=== PATIENT | female | born 1975 | race Caucasian/White ===

== ENCOUNTER → 2017-10-02 10:18 | Outpatient (CLI) | payer OTHER, SELFPAY ==
--- NOTE | 2017-10-02 10:26 | RAD_ITS ---
STUDY: X-RAY - PELVIS REASON FOR EXAM: Female, 41 years old. Acute pain TECHNIQUE: One view of the pelvis was obtained. COMPARISON: None. FINDINGS: There is a non-specific bowel gas pattern. Normal visualized soft tissue structures. Normal bilateral iliac wings, sacroiliac joints and visualized sacrum. Normal visualized bilateral superior and inferior pubic rami. Normal pubic symphysis. Normal ischial tuberosities. Normal visualized right femoral head. Normal right acetabulum. Normal right hip joint. Normal visualized left femoral head. Normal left acetabulum. Normal left hip joint. RAD/Pelvis 1 or 2 Views IMPRESSION: Normal x-ray examination of the pelvis. Electronically Signed: Holger Forrest MD at 10:37 EDT , Service support ,
[2017-10-02 12:00] LABS: Color, Urine Yellow (Yellow); Glucose, Dipstick Normal (Normal); Ketone-Dipstick Negative (Negative); Leukocyte Esterase-Dipstick 25 /ul (Negative); Nitrite-Dipstick Negative (Negative); Occult Blood-Urine Negative /ul (Negative); Protein-Dipstick 15 mg/dl (Negative); Specific Gravity, Urine 1.025 (1.002-1.030); Urine Clarity Clear (Clear); Urine Urobilinogen 1 mg/dl (Normal)
[2017-10-02 12:03] LABS: Urine Bilirubin Dipstick 1 mg/dL (Negative)
[2017-10-02 12:11] LABS: Protein, Urine (Random) 28.6 mg/dL (<11.9); Protein:Creat Ratio 145 mg/g CRE (0-200)
[2017-10-02 12:30] LABS: Absolute Lymphocyte Count 3.42 X10^3/ul (0.83-4.51); Absolute Neutrophil Count 3.1 X10^3/uL (2.0-7.7); Basophil# 0.02 X10^3/uL; Basophil% 0.3 % (0-1); Eosinophil# 0.13 X10^3/uL; Eosinophils% 1.7 % (0-5); Hematocrit 35.7 % (37-47); Hemoglobin 12.4 g/dl (12.0-15.0); Lymphocyte # 3.42 X10^3/ul (4.0); Lymphocyte % 45.9 % (19-41); Mean Corp Hgb Conc 34.7 g/gl (32-36); Mean Corpuscular Hgb 31.2 pg (27.0-32.0); Mean Corpuscular Volume 89.9 fL (81-99); Mean Platelet Vol. 11.8 fl (6.2-12.0); Monocyte# 0.81 X10^3/uL; Monocyte% 10.9 % (0-10); Neutrophil # 3.06 X10^3/uL (2.7-7.7); Neutrophil % 41.1 % (47-70); Platelet Count 263 K/mm3 (150-450); RBC Distribution Width CV 11.6 % (11.6-14.6); RBC Distribution Width SD 36.7 fl (35.1-43.9); Red Blood Count 3.97 M/mm3 (4.2-5.4); White Blood Count 7.5 K/mm3 (4.4-11.0)
[2017-10-02 12:31] LABS: Erythrocyte Sedimentation Rate < 1 mm/hr (0-20)
[2017-10-02 12:33] LABS: POSITIVE COUNT NO; POSITIVE DIFFERENTIAL NO; POSITIVE MORPHOLOGY NO
[2017-10-02 12:34] LABS: ALB/GLOB Ratio 1.3 RATIO (0.9-2.4); AST(SGOT) 20 U/L (15-37); Alanine Aminotransfer ALT/SGPT 18 U/L (13-56); Albumin, Serum 4.4 g/dL (3.2-5.0); Alkaline Phosphatase 82 U/L (45-117); Anion Gap 6 (5-15); BUN 13 mg/dL (7-18); BUN/Creat Ratio 13.3 RATIO (10-20); CRP < 2.90 mg/L (0.0-3.0); Calcium,Total 8.7 mg/dL (8.5-10.1); Chloride 108 mmol/L (98-107); Creatinine, Serum 0.98 mg/dL (0.55-1.02); EST Glomerular Filtration Rate 66 mL/min (>60); Est Glom Filt Rate - Afr Amer 80 mL/min (>60); Globulin 3.4 g/dL (2.2-4.2); Glucose 72 mg/dL (74-106); Potassium 3.7 mmol/L (3.5-5.1); Protein, Total 7.8 g/dL (6.4-8.2); Rheumatoid Factor < 10.0 IU/mL (<15); Sodium Level 141 mmol/L (136-145)
[2017-10-06 12:08] LABS: Complement C3 104 mg/dL (82-167)
[2017-10-06 12:59] LABS: CCP IgG Antibodies 1 units (0-19); HEPATITIS B SURFACE AG Negative (Negative); HLA B27 Negative (.); Hep B Surface Antibodies Reactive (.); Hep C Antibodies 0.1 s/co ratio (0.0-0.9)
== END ==
LOC: MTLAB 10:23
PROVIDERS: Family Provider Family Medicine; PCP Family Medicine; Visit Provider Internal Medicine Rheumatology
DX: M06.4 Inflammatory polyarthropathy (principal); M35.00 Sjogren syndrome, unspecified; M79.7 Fibromyalgia
CPT/HCPCS: 36415; 72170; 80053; 81002; 81374; 82570; 84156; 85025; 85652; 86140; 86160; 86200; 86431; 86706; 86803; 87340

== ENCOUNTER 2017-10-29 10:12 | Emergency (ER) | payer OTHER, SELFPAY ==
[2017-10-29 10:12] VITALS: BP 131/88; PULSE 82; RESP 16; TEMP 36.7; O2SAT 97; BMI 23.9
--- NOTE | 2017-10-29 10:27 | CT_ITS ---
STUDY: CT ABDOMEN AND PELVIS WITH CONTRAST REASON FOR EXAM: Female, 41 years old. LOW ABD PAIN RADIATING INTO BACK, N/V X 3 DAYS, FIBROMYALGIA, AUTOIMMUNE DZ, SURG-HYSTER RADIATION DOSAGE (If Supplied By Facility): CTDIvol = ( 15.02 ) mGy, DLP = ( 706.05 ) mGycm TECHNIQUE: Transaxial images were obtained from the dome of the diaphragm to the symphysis pubis without oral contrast. 100 ml of Isovue 300 contrast was administered. Sagittal and coronal images were reconstructed. Individualized dose optimization techniques were used for this CT. COMPARISON June 13, 2017 FINDINGS: The visualized lung bases are unremarkable. The visualized portions of the heart are within normal limits. Normal liver. Normal gallbladder and extrahepatic biliary system. Normal spleen. Normal pancreas. Normal bilateral adrenal glands. Normal right kidney. Normal left kidney. There is a small hiatal hernia. Normal small intestine. There are multiple colonic diverticula consistent with diverticulosis. The appendix is visualized and appears normal. Normal abdominal aorta. Normal inferior vena cava. Normal retroperitoneum. Normal urinary bladder. There has been a hysterectomy. There is a small umbilical hernia containing fat. There are mild degenerative changes of the visualized spine. CT/Abdomen/Pelvis W IV Cont ONLY IMPRESSION: There is a new small hiatal hernia. Other chronic findings. Electronically Signed: Almita Castanon MD at 12:19 EDT , Service support ,
[2017-10-29 10:44] LABS: Absolute Lymphocyte Count 2.69 X10^3/ul (0.83-4.51); Absolute Neutrophil Count 3.3 X10^3/uL (2.0-7.7); Basophil# 0.02 X10^3/uL; Basophil% 0.3 % (0-1); Eosinophil# 0.17 X10^3/uL; Eosinophils% 2.5 % (0-5); Hematocrit 34.5 % (37-47); Hemoglobin 11.9 g/dl (12.0-15.0); Lymphocyte # 2.69 X10^3/ul (4.0); Lymphocyte % 39.3 % (19-41); Mean Corp Hgb Conc 34.5 g/gl (32-36); Mean Corpuscular Hgb 31.7 pg (27.0-32.0); Mean Platelet Vol. 9.8 fl (6.2-12.0); Monocyte# 0.65 X10^3/uL; Monocyte% 9.5 % (0-10); Neutrophil # 3.29 X10^3/uL (2.7-7.7); Neutrophil % 48.1 % (47-70); POSITIVE COUNT NO; POSITIVE DIFFERENTIAL NO; POSITIVE MORPHOLOGY NO; Platelet Count 275 K/mm3 (150-450); RBC Distribution Width SD 39.4 fl (35.1-43.9); Red Blood Count 3.75 M/mm3 (4.2-5.4); White Blood Count 6.8 K/mm3 (4.4-11.0)
[2017-10-29] MEDS: 0.9% Normal Saline 1,000 ML 1000 ML IV (10:45)
--- NOTE | 2017-10-29 10:45 | ED.DCSUM_ITS ---
- ER Visit Summary Date of Service: 10/29/17 Chief Complaint: Left lower quadrant abdominal pain, dysuria History of Present Illness: The patient is a 41 F with history of Sjogren's syndrome and polyarthritis presents to the emergency department with left lower quadrant abdominal pain to her back and dysuria. 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 She states she has had 2 urine dips which were positive for bilirubin. She states she went to the emergency department at [facility] yesterday. States they checked her urine and states that it did have bilirubin in it. She states that they did not tell her anything else. She is concerned because she still having some abdominal pain. She denies any fevers. She has had some chills. She states she was recently started on naltrexone, and in order to do this, she had to be taken off of her tramadol. She came off the tramadol week ago and had short-lived withdrawal symptoms that are now improved. She states she has never had pain like this before. She has had prior hysterectomy but denies any other abdominal surgery. Physical Examination: Vital signs reviewed General: Well-nourished, well-developed Head: Normocephalic, atraumatic Eyes: Pupils equal and reactive, extraocular muscles intact Neck, supple, no lymphadenopathy Heart: Regular rate and rhythm Respiratory: No distress, clear bilaterally Abdomen: Soft, mildly tender in the left lower quadrant without rebound or guarding, nondistended, no peritoneal signs Back: Nontender Extremities: Nontender, no edema, no cords Skin: Normal color no rash Neuro: Alert and oriented, no focal or lateralizing deficits Test Results: [] Emergency Department Course and Treatment: The patient has minimal tenderness in her left lower quadrant. She did state that she had bilirubin in her urine. I obtained a urine here. There is no blood. There is no bilirubin. Screening labs are obtained including LFTs. These are also normal. The patient underwent CT of abdomen pelvis with IV contrast. There is no definitive intra-abdominal pathology to explain her pain. I am unsure if she perhaps had some blood breakdown which cause the elevated bilirubin if she passed a small stone, or even if there was a trace infection which is now cleared. However, her exam is unremarkable, her testing is normal. She has had almost complete resolution of symptoms with Toradol and Bentyl. This may be also some withdrawal symptoms because she recently came off tramadol that she had been on for years. I do feel that this patient is safe for further outpatient workup. She will continue anti-inflammatories at home. She is discharged. Treatment Plan: [] Disposition: Discharge Impression: 1. Left-sided flank pain This note was generated with [employer] dictation software. It may contain incorrect words, spelling, and punctuation that were not noted in review of the chart prior to signing ED Disposition - Plan for ED Patient: Chief Complaint: Abd Pain Instructions: ED Abdominal Pain Unkn Cause Referrals: Miguel A Young DO [Primary Care Provider] -
[2017-10-29 10:46] LABS: Bacteria 0 SEEN /hpf (None Seen); Mucous, Urine 0 SEEN /hpf (<or=2+); Red Blood Cells-Urine 0 SEEN /hpf (0-5); White Blood Cells 0 SEEN /hpf (0-5)
[2017-10-29 10:47] LABS: Color, Urine Yellow (Yellow); Glucose, Dipstick Normal (Normal); Ketone-Dipstick Negative (Negative); Leukocyte Esterase-Dipstick Negative /ul (Negative); Nitrite-Dipstick Negative (Negative); Occult Blood-Urine Negative /ul (Negative); Protein-Dipstick Negative (Negative); Specific Gravity, Urine 1.005 (1.002-1.030); Urine Bilirubin Dipstick Negative (Negative); Urine Clarity Clear (Clear); Urine Urobilinogen Normal (Normal)
[2017-10-29 11:02] LABS: ALB/GLOB Ratio 1.1 RATIO (0.9-2.4); AST(SGOT) 20 U/L (15-37); Alanine Aminotransfer ALT/SGPT 17 U/L (13-56); Albumin, Serum 3.6 g/dL (3.2-5.0); Alkaline Phosphatase 79 U/L (45-117); Anion Gap 4 (5-15); BUN 10 mg/dL (7-18); BUN/Creat Ratio 13.6 RATIO (10-20); Calcium,Total 8.9 mg/dL (8.5-10.1); Chloride 114 mmol/L (98-107); Creatinine, Serum 0.74 mg/dL (0.55-1.02); EST Glomerular Filtration Rate 91 mL/min (>60); Est Glom Filt Rate - Afr Amer 111 mL/min (>60); Globulin 3.2 g/dL (2.2-4.2); Glucose 77 mg/dL (74-106); Lipase 342 U/L (73-393); Potassium 4.1 mmol/L (3.5-5.1); Protein, Total 6.8 g/dL (6.4-8.2); Sodium Level 146 mmol/L (136-145)
[2017-10-29 11:14] LABS: Squamous Epithelial Cells - UA 0-5 SEEN /hpf (5-10)
[2017-10-29] MEDS: Ondansetron ODT 4 MG Tablet PO (11:58)
[2017-10-29] MEDS: Ketorolac 30 MG/ML Syringe IV (11:59)
[2017-10-29] MEDS: Dicyclomine 10 MG Capsule 20 MG PO (12:18)
[2017-10-29 12:19] VITALS: BP 112/81; PULSE 64; RESP 14; O2SAT 100
== END 2017-10-29 12:48 | disposition home or self-care (01) ==
PROVIDERS: Emergency Provider Emergency Medicine; Family Provider Family Medicine; PCP Family Medicine
DX: R10.32 Left lower quadrant pain (principal); R30.0 Dysuria; R19.7 Diarrhea, unspecified; R11.2 Nausea with vomiting, unspecified; M79.1 Myalgia; M54.9 Dorsalgia, unspecified; M35.00 Sjogren syndrome, unspecified; Z90.710 Acquired absence of both cervix and uterus
CPT/HCPCS: 74177; 80053; 81001; 83690; 85025; 96361; 96374; 99284; J7030; Q9967; A4216

== ENCOUNTER 2017-11-22 17:56 | Emergency (ER) | payer OTHER, SELFPAY ==
[2017-11-22 17:57] VITALS: BP 134/90; PULSE 113; RESP 15; TEMP 36.9; O2SAT 96; BMI 24.3
--- NOTE | 2017-11-22 18:12 | CT_ITS ---
STUDY: CT ABDOMEN AND PELVIS WITHOUT CONTRAST REASON FOR EXAM: Female, 41 years old. Abdominal pain RADIATION DOSAGE (If Supplied By Facility): CTDIvol = ( 6.62 ) mGy, DLP = ( 342.61 ) mGycm TECHNIQUE: Transaxial images were obtained from the dome of the diaphragm to the symphysis pubis without oral contrast, and without intravenous contrast. Sagittal and coronal images were reconstructed. Individualized dose optimization techniques were used for this CT. COMPARISON: 10/29/2017. FINDINGS: Evaluation of the abdominal viscera is limited in the absence of intravenous contrast. The visualized lung bases are clear. The visualized portions of the heart and pericardium are within normal limits. There are no calcified gallstones present. The liver demonstrates an unremarkable unenhanced appearance. The spleen is normal in size. The pancreas demonstrates an unremarkable unenhanced appearance. The adrenal glands are within normal limits. There are no obstructing renal stones. There is no hydronephrosis. Normal visualized stomach. There is no bowel obstruction. There are thickened loops of small bowel in the right lower quadrant, consistent with enteritis. There is a small amount of adjacent free fluid. The appendix is mildly thickened, measuring 7 mm. There is a small amount of adjacent fluid and stranding. However, this is likely secondary to the adjacent small bowel inflammation. The aorta is normal in caliber. There is no abdominal or pelvic free air, fluid collection or lymphadenopathy. There are no destructive osseous lesions. CT/Abdomen/Pelvis without Cont IMPRESSION: Thickened small bowel loops in the right lower quadrant, consistent with enteritis. Small amount of free fluid. Mild thickening of the appendix with adjacent fluid and stranding. This is likely due to the adjacent small bowel inflammation. However, if there is concern for acute appendicitis, a repeat exam with oral and intravenous contrast can be performed. Electronically Signed: Sami Conley, at 19:22 EDT Tel , Service support ,
--- NOTE | 2017-11-22 18:13 | ED.VISSUMM ---
- ER Visit Summary Date of Service: 11/22/17 Chief Complaint: Right lower quadrant abdominal pain History of Present Illness: The patient is a 41 F with right lower quadrant abdominal pain for 3 days. She states that she was examined by the nurse at work today and was told that she has rebound tenderness and sent here to rule out appendicitis. She is nauseated but has not vomited. She had loose watery diarrhea this morning that has resolved. No back pain or hematuria. She has had similar symptoms in the past with no conclusive diagnosis found on her workup. Physical Examination: Vitals are within normal limits. She is not in distress. She does have mild right lower quadrant abdominal tenderness but no rebound or guarding Test Results: She does have a mild leukocytosis of 13,200. Other labs within normal limits. CT scan revealed inflammation in the bowel loops of the right lower quadrant consistent with enteritis however the appendix was also enlarged and there was surrounding stranding and inflammation and appendicitis could not be ruled out according to the radiologist. It is also possible that the surrounding inflammation was secondary to the adjacent bowel loops. Emergency Department Course and Treatment: I discussed the case with Dr. Bronson who requested transfer to a tertiary care center since there is no gastrointestinal coverage here and she believes that she will likely need a colonoscopy to examine her terminal ileum. The patient requested to be transferred to [facility] and she was accepted by Dr. Tariq. Treatment Plan: Was given 1 dose of IV Zosyn and transferred in stable condition Disposition: Transferred to [facility] Impression: Initial encounter right lower quadrant abdominal pain, enteritis versus early appendicitis This note was generated with [employer] dictation software. It may contain incorrect words, spelling, and punctuation that were not noted in review of the chart prior to signing ED Disposition - Plan for ED Patient: Chief Complaint: Abd Pain Referrals: Miguel A Young DO [Primary Care Provider] -
[2017-11-22] MEDS: Ondansetron 4 MG/2 ML Vial IV ×2 (18:23→22:01)
[2017-11-22] MEDS: 0.9% Normal Saline 1,000 ML 1000 ML IV (18:23)
[2017-11-22] MEDS: Ketorolac 30 MG/ML Syringe IV (18:23)
[2017-11-22 18:41] LABS: Absolute Lymphocyte Count 4.42 X10^3/ul (0.83-4.51); Absolute Neutrophil Count 7.1 X10^3/uL (2.0-7.7); Basophil# 0.02 X10^3/uL; Basophil% 0.2 % (0-1); Eosinophil# 0.27 X10^3/uL; Hematocrit 40.5 % (37-47); Hemoglobin 13.7 g/dl (12.0-15.0); Lymphocyte # 4.42 X10^3/ul (4.0); Lymphocyte % 33.3 % (19-41); Mean Corp Hgb Conc 33.8 g/gl (32-36); Mean Corpuscular Hgb 31.2 pg (27.0-32.0); Mean Corpuscular Volume 92.3 fL (81-99); Mean Platelet Vol. 10.4 fl (6.2-12.0); Monocyte# 1.48 X10^3/uL; Monocyte% 11.2 % (0-10); Neutrophil # 7.05 X10^3/uL (2.7-7.7); Neutrophil % 53.1 % (47-70); Platelet Count 307 K/mm3 (150-450); RBC Distribution Width CV 12.7 % (11.6-14.6); Red Blood Count 4.39 M/mm3 (4.2-5.4); White Blood Count 13.3 K/mm3 (4.4-11.0)
[2017-11-22 18:42] LABS: POSITIVE COUNT NO; POSITIVE DIFFERENTIAL NO; POSITIVE MORPHOLOGY NO
[2017-11-22 18:43] LABS: Bacteria 0 SEEN /hpf (None Seen); Mucous, Urine 0 SEEN /hpf (<or=2+); Red Blood Cells-Urine 0 SEEN /hpf (0-5)
[2017-11-22 18:44] LABS: Color, Urine Yellow (Yellow); Glucose, Dipstick Normal (Normal); Ketone-Dipstick Negative (Negative); Leukocyte Esterase-Dipstick 100 /ul (Negative); Nitrite-Dipstick Negative (Negative); Occult Blood-Urine Negative /ul (Negative); Protein-Dipstick Negative (Negative); Urine Bilirubin Dipstick Negative (Negative); Urine Clarity Sl. Cloudy (Clear); Urine Urobilinogen Normal (Normal)
[2017-11-22 18:52] LABS: AST(SGOT) 28 U/L (15-37); Alanine Aminotransfer ALT/SGPT 29 U/L (13-56); Albumin, Serum 4.1 g/dL (3.2-5.0); Alkaline Phosphatase 101 U/L (45-117); Anion Gap 9 (5-15); BUN 14 mg/dL (7-18); BUN/Creat Ratio 16.4 RATIO (10-20); Bilirubin, Direct 0.11 mg/dL (0.00-0.30); Calcium,Total 9.2 mg/dL (8.5-10.1); Chloride 107 mmol/L (98-107); Creatinine, Serum 0.86 mg/dL (0.55-1.02); EST Glomerular Filtration Rate 77 mL/min (>60); Est Glom Filt Rate - Afr Amer 93 mL/min (>60); Estimated Creatinine Clearance 85.96 ml/min; Globulin 3.9 g/dL (2.2-4.2); Glucose 109 mg/dL (74-106); Lipase 147 U/L (73-393); Potassium 3.7 mmol/L (3.5-5.1); Sodium Level 140 mmol/L (136-145)
[2017-11-22 19:17] LABS: Squamous Epithelial Cells - UA 0-5 SEEN /hpf (5-10); White Blood Cells 0-5 SEEN /hpf (0-5)
[2017-11-22 20:34] VITALS: PULSE 106; RESP 14; O2SAT 98
[2017-11-22] MEDS: Morphine 4 MG/ML Syringe IV (20:43)
[2017-11-22] MEDS: Piperacil/Tazobactam 3.375 GM/50 ML ML IV (21:20)
[2017-11-22 22:02] VITALS: BP 142/94; PULSE 99; RESP 14; TEMP 36.9; O2SAT 97
== END 2017-11-22 22:04 | disposition short-term general hospital (02) ==
PROVIDERS: Emergency Provider Emergency Medicine; Family Provider Family Medicine; PCP Family Medicine
DX: R10.31 Right lower quadrant pain (principal); R11.0 Nausea; R19.7 Diarrhea, unspecified; Q87.1 Congenital malformation syndromes predominantly associated with short stature; Z90.710 Acquired absence of both cervix and uterus
CPT/HCPCS: 74176; 80048; 80076; 81001; 83690; 85025; 99284; J7030; A4216; J2405

== ENCOUNTER 2018-04-18 14:30 | Inpatient (IN) | payer MEDICAID, SELFPAY ==
--- NOTE | 2018-04-18 13:45 | PCM.HP.STD ---
Problem List (1) Opiate abuse, continuous Status: Acute (2) Benzodiazepine abuse, continuous Status: Acute (3) Tobacco use Status: Chronic (4) Anxiety and depression Status: Chronic History of Present Illness Date of Admission: 04/18/18 Chief Complaint: Acute BZD/opiate withdrawal The patient is a 42 y/o F w/ PMHx: Anxiety and Depression, Tobacco use, Opiate and BZD abuse ongoing who presents to the [facility] at [facility] on 04/18/18 w/ noted opiate and BZD withdrawal onset starting 04/17/18-04/18/18 following last dose BZD evening 04/15/18 and last dose percocet 04/17/18 evening with normal consumption history 4 mg daily klonopin and percocet 30 mg daily with abdominal pain/cramping, generalized body aches and pains, rhinorrhea, piloerection, fatigue, restless leg, sweating, yawning as well as agitation and tremors. Patient interested in attaining clean status. She notes that she has been taking her boyfriends percocets with his consent. He had an accident ~2 months prior and has some extent of paralysis and she has been caring for him. He is not able to get his own medications and she notes she gives them to him and takes them as well. She was rx klonopin for anxiety ~ 2 years prior and starting abusing her regimen this year. 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 She is currently on suspension secondary to at least 2 reported incidents of concern she has taken a patient or family members narcotics and BZD. She notes she is on suspension until she has a drug test. She states that she did not take these patients/family members medications. She openly admits that she ran out of percocet and klonopin after these most recent doses. 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 Lives: - - She notes recently she had her boyfriend move out. She had been taking care of him after a recent accident which left him paralyzed. Smoking Status: Current every day smoker - 1 ppd. Tobacco Use: Cigarettes Alcohol: None Drugs: - - Percocets and BZD abuse w/ consumption history 4 mg daily klonopin and percocet 30 mg daily - *Family History Maternal History Items: Diabetes Paternal History Items: Diabetes Review of Systems Constitutional: Reports: Anorexia, Malaise, Weakness, Fatigue. Denies: Chills, Fever, Weight Change HEENT: Reports: Sore Throat. Denies: Head Aches, Sinus Congestion, Sinus Drainage Cardiovascular: Denies: Chest Pain, Palpitations Respiratory: Denies: Cough, Shortness of breath at rest, Sputum production Gastrointestinal: Reports: Abdominal Pain, Diarrhea, Nausea, Vomiting Genitourinary: Denies: Dysuria Musculoskeletal: Reports: Joint Pain, Muscle pain. Denies: Joint Tenderness Skin: Denies: Rash, Wounds Neurological: Reports: Tremor. Denies: Focal weakness, Numbness, Tingling Psychiatric: Reports: Anxiety, Depression. Denies: Homicidal Ideations, Suicidal Ideations Hematologic/ Lymphatic: Denies: Easy Bruising, Easy Bleeding VTE Information - Inpt Only VTE Present on Admission: No VTE Mechan Device Prophylaxis: SCD's VTE Pharm Prophylaxis ordered?: No Reason prophylaxis not ordered:: Treatment Not Indicated Subjective: Seated upright in the chair, notes feeling poorly, yawning, sweating, restless, anxious. Objective: Physical Examination: General: awake, alert, oriented x 3 and cooperative, seated upright, restless, anxious, yawning, sweating. Skin: normal color, turgor, no icterus, cyanosis. HEENT: AT/NC, EOMI, PERRLA, moderately dry MM, no carotid bruits or JVD noted. Lungs: CTA bilaterally, moderate effort, mild decrease BL bases, no rales, ronchi or wheezing. Heart: Regular rate and rhythm; no gallop, rub audible. Abdomen: soft, mild generalized discomfort, ND, hyperactive BS, no HSM. Extremities: no cyanosis, clubbing, or edema. Neurological: patient awake, alert, oriented x 3; cognitive function intact; pupils equally reactive to light and accomodation; cranial nerves II-XII grossly normal, moving all 4 extremities, no focal deficits, strength mildly to moderately globally secondary to acute presentation, agitated, no visible tremors. Psychiatric: affect appears mildly agitated, anxious, no acute evidence of depressive feelings. Assessment/Plan All Active Problems Opiate abuse, continuous (Acute) Benzodiazepine abuse, continuous (Acute) The patient is a 42 y/o F w/ PMHx: Anxiety and Depression, Tobacco use, Opiate and BZD abuse ongoing who presents to the [facility] at [facility] on 04/18/18 w/ noted acute opiate and BZD withdrawal onset starting 04/17/18-04/18/18 following last dose BZD evening 04/15/18 and last dose percocet 04/17/18 evening with normal consumption history 4 mg daily klonopin and percocet 30 mg daily. (1) Acute Opiate and BZD Withdrawal: Will admit to [facility], obtain routine labs including CBC, CMP, urine for drug screen, serum lipase, initiate and continue on [facility] service protocol with tapering course of Subutex and Librium with cautious to sedation, as needed Seroquel, Librium, Sinemet, Catapres, Bentyl, Vistaril, IV fluids, IV antiemetics, Tylenol as needed for pain. Once patient clinically improved and completion of taper nearing will plan [facility] assistance for transition to next level of rehabilitation care. Discussed patient status per her permission with her PCP Dr. Miguel A Young and he is willing to continue to treat her for BZD withdrawal with BZD taper regimen. Intention for hospitalist to contact him on day of patient discharge to arrange pharmacy rx for taper initiation to continue. (2) Anxiety and Depression: Will continue patient home cymbalta 60 mg daily regimen, does have notable room for increase as needed. (3) Tobacco Abuse: Encouraged cessation, inpatient consultation per RT, NR if desired. (4) GERD: Famotidine. (5) DVT Prophylaxis: SOLO, low risk, ambulation. Code Visit Inpatient E&M: 73078 Init Hosp L3
[2018-04-18 14:00] VITALS: BP 157/80; PULSE 78; RESP 18; TEMP 36.5
[2018-04-18 14:35] VITALS: BMI 22.0
[2018-04-18 14:40] LABS: Basophil% 0.2 % (0-1); Eosinophils% 0.4 % (0-5); Hematocrit 40.5 % (37-47); Hemoglobin 13.7 g/dl (12.0-15.0); Lymphocyte % 27.8 % (19-41); Mean Corp Hgb Conc 33.8 g/gl (32-36); Mean Corpuscular Hgb 30.9 pg (27.0-32.0); Mean Corpuscular Volume 91.4 fL (81-99); Mean Platelet Vol. 10.7 fl (6.2-12.0); Monocyte% 8.1 % (0-10); Neutrophil % 63.2 % (47-70); Platelet Count 309 K/mm3 (150-450); RBC Distribution Width CV 12.2 % (11.6-14.6); RBC Distribution Width SD 40.8 fl (35.1-43.9); Red Blood Count 4.43 M/mm3 (4.2-5.4); White Blood Count 11.4 K/mm3 (4.4-11.0)
[2018-04-18 14:41] LABS: Absolute Lymphocyte Count 3.18 X10^3/ul (0.83-4.51); Absolute Neutrophil Count 7.2 X10^3/uL (2.0-7.7); Basophil# 0.02 X10^3/uL; Eosinophil# 0.05 X10^3/uL; Lymphocyte # 3.18 X10^3/ul (4.0); Monocyte# 0.93 X10^3/uL; Neutrophil # 7.22 X10^3/uL (2.7-7.7); POSITIVE COUNT NO; POSITIVE DIFFERENTIAL NO; POSITIVE MORPHOLOGY NO
[2018-04-18 14:50] LABS: AST(SGOT) 23 U/L (15-37); Alanine Aminotransfer ALT/SGPT 29 U/L (13-56); Albumin, Serum 4.3 g/dL (3.2-5.0); Alkaline Phosphatase 120 U/L (45-117); Anion Gap 9 (5-15); BUN 10 mg/dL (7-18); BUN/Creat Ratio 15.3 RATIO (10-20); Calcium,Total 9.6 mg/dL (8.5-10.1); Chloride 108 mmol/L (98-107); Creatinine, Serum 0.66 mg/dL (0.55-1.02); EST Glomerular Filtration Rate 105 mL/min (>60); Est Glom Filt Rate - Afr Amer 127 mL/min (>60); Globulin 4.1 g/dL (2.2-4.2); Glucose 92 mg/dL (74-106); Lipase 135 U/L (73-393); Potassium 3.4 mmol/L (3.5-5.1); Protein, Total 8.4 g/dL (6.4-8.2); Sodium Level 142 mmol/L (136-145)
[2018-04-18 15:01] LABS: Alcohol, Blood (Medical)-Serum < 3.0 mg/dL
[2018-04-18 15:04] VITALS: BMI 23.6
[2018-04-18] MEDS: Ondansetron ODT 4 MG Tablet PO ×2 (15:23→23:03)
[2018-04-18] MEDS: Buprenorphine HCl 2 MG TAB.SUBL SL ×2 (15:23→21:39)
[2018-04-18] MEDS: hydrOXYzine PAM 25 MG Capsule 50 MG PO (15:23)
[2018-04-18 16:27] LABS: Amphetamine Urine VISTA NEGATIVE (<1000 ng/mL); Barbiturate Urine VISTA POSITIVE (< 200 ng/mL); Benzodiazepine Urine VISTA NEGATIVE (< 200 ng/mL); Cocaine Urine VISTA NEGATIVE (< 300 ng/mL); Ecstacy Urine VISTA NEGATIVE (< 500 ng/mL); Methadone Urine VISTA NEGATIVE (< 300 ng/mL); PCP Urine VISTA NEGATIVE (< 25 ng/mL); THC Urine VISTA NEGATIVE (< 50 ng/mL); Vista UDS pH Range 5
[2018-04-18] MEDS: Lactated Ringers 1,000 ML 125 ML IV (17:01)
[2018-04-18] MEDS: Ibuprofen 600 MG Tablet PO (17:02)
[2018-04-18] MEDS: chlordiazePOXIDE 25 MG Capsule 50 MG PO ×2 (17:02→21:39)
[2018-04-18 18:30] VITALS: BP 136/90; PULSE 89; RESP 18; TEMP 36.9
[2018-04-18] MEDS: Erythromycin Base 1 OPTH.TUBE 1 APPLIC EACH EYE ×2 (18:32→21:41)
[2018-04-18] MEDS: Pramipexole Di-HCl 0.25 MG Tablet PO (18:35)
--- NOTE | 2018-04-18 18:53 | NURSING ---
reviewed and agree with charting by Zuly Guidry, student nurse
[2018-04-18] MEDS: cloNIDine HCl 0.1 MG Tablet PO (20:00)
[2018-04-18] MEDS: Famotidine 20 MG Tablet PO (21:40)
[2018-04-18] MEDS: traZODone 50 MG Tablet PO (21:40)
[2018-04-18 22:00] VITALS: RESP 16
[2018-04-19] VITALS (8 sets, daily range): BP systolic 97–119; BP diastolic 58–75; PULSE 71–103; RESP 16; TEMP 36.6–37.4; O2SAT 93–98
[2018-04-19] MEDS: Ibuprofen 600 MG Tablet PO ×3 (01:19→21:13)
[2018-04-19] MEDS: hydrOXYzine PAM 25 MG Capsule 50 MG PO ×3 (01:25→15:54)
[2018-04-19] MEDS: chlordiazePOXIDE 25 MG Capsule 50 MG PO ×3 (05:07→17:50)
[2018-04-19] MEDS: Buprenorphine HCl 2 MG TAB.SUBL SL ×3 (05:07→21:58)
[2018-04-19] MEDS: Famotidine 20 MG Tablet PO ×2 (08:55→21:10)
[2018-04-19] MEDS: Erythromycin Base 1 OPTH.TUBE 1 APPLIC EACH EYE ×4 (08:56→21:10)
[2018-04-19] MEDS: Ondansetron ODT 4 MG Tablet PO ×2 (09:02→15:44)
[2018-04-19] MEDS: Methocarbamol 750 MG Tablet PO ×2 (09:02→15:54)
[2018-04-19] MEDS: Dicyclomine 10 MG Capsule 20 MG PO (09:03)
--- NOTE | 2018-04-19 09:12 | PN_ITS ---
Subjective: Patient was seen and examined. Complains of some restless legs. Slept well. Concerned about her significant other also admitted in the hospital. She does not want her significant other to know that she is admitted and also the room number. Per patient, she believes that her problem with addiction to pain medications and other substances are related to this present. Patient is on chronic pain medications but has been giving her his medications to keep her in the relationship with him. She is eager to follow-up with an outpatient program. Vitals/I&O's: Vital Signs Temp Pulse Resp BP Pulse Ox 98.3 F 71 16 97/58 L 96 04/19/18 02:00 04/19/18 02:00 04/19/18 04:59 04/19/18 02:00 04/19/18 01:26 Oxygen Delivery Method Room Air Weight: 70.534 kg Body Mass Index (BMI) 23.6 Intake and Output for Last 24 Hours 04/17/18 04/18/18 04/19/18 23:59 23:59 23:59 Intake Total 536 / 536 1651 / 1651 Balance 536 / 536 1651 / 1651 General: Alert, Oriented x3, Cooperative, No apparent distress HEENT: Atraumatic, PERRLA, EOMI, Normocephalic Oral: Moist Mucosa Neck: Supple, No JVD, Negative Carotid Bruits Lungs: Clear to auscultation, Normal air movement Cardiovascular: Regular rate, Regular Rhythm, Normal S1, Normal S2, No murmurs Abdomen: Bowel Sounds Present, Soft, Non Tender, Non-Distended, No Hepato- splenomegaly Extremities: No edema, Capillary Refill Less than 3 Seconds Skin: No rashes, No breakdown Musculoskeletal: No Tenderness to Palpation of Joints or Extremities Neurological: Cranial nerves II-XII grossly intact, Neuro grossly intact Psych/Mental Status: Normal Affect, Appropriate Laboratory Results 04/18/18 14:15: WBC 11.4 H, RBC 4.43, Hgb 13.7, Hct 40.5, MCV 91.4, MCH 30.9, MCHC 33.8, RDW 12.2, RDW Differential 40.8, Plt Count 309, MPV 10.7, Immature Gran % (Auto) 0.300, Neut % (Auto) 63.2, Lymph % (Auto) 27.8, [place] % (Auto) 8.1, Eos % (Auto) 0.4, Baso % (Auto) 0.2, Absolute Neuts (auto) 7.2, Absolute Lymphs (auto) 3.18, Total Counted Not Reportable 04/18/18 14:15: Sodium 142, Potassium 3.4 L, Chloride 108 H, Carbon Dioxide 25.0, Anion Gap 9, BUN 10, Creatinine 0.66, Est GFR (MDRD) Af Amer 127, Est GFR (MDRD) Non-Af 105, BUN/Creatinine Ratio 15.3, Glucose 92, Calcium 9.6, Total Bilirubin 0.40, AST 23, ALT 29, Alkaline Phosphatase 120 H, Total Protein 8.4 H, Albumin 4.3, Globulin 4.1, Albumin/Globulin Ratio 1.0, Lipase 135 04/18/18 14:15: Ethyl Alcohol < 3.0 04/18/18 15:15: Urine Opiates Screen NEGATIVE, Urine Methadone Screen NEGATIVE, Ur Barbiturates Screen POSITIVE H, Ur Phencyclidine Scrn NEGATIVE, Ur Amphetamines Screen NEGATIVE, U Methamphetamin-MDMA NEGATIVE, U Benzodiazepines Scrn NEGATIVE, Urine Cocaine Screen NEGATIVE, U Cannabinoids Screen NEGATIVE, Ur Drug Screen Comment Current Medications Acetaminophen (Tylenol) 500 mg PO Q4H PRN PRN PRN Reason: Temp > 100.4 F Al Hydroxide/Mg Hydroxide (Mylanta Ii) 30 ml PO Q6H PRN PRN PRN Reason: dyspesia Bisacodyl (Dulcolax) 10 mg RECTAL DAILY PRN PRN Reason: Constipation Buprenorphine HCl (Buprenorphine Hcl) 4 mg SL Q8H ANGEL; Taper Stop: 04/21/18 17:59 Last Admin: 04/19/18 05:07 Dose: 4 mg Chlordiazepoxide (Librium) 50 mg PO Q6H ANGLE; Taper Stop: 04/21/18 17:59 Last Admin: 04/19/18 09:02 Dose: 50 mg Clonidine (Catapres) 0.1 mg PO Q2H PRN PRN PRN Reason: Hot/Cold Sweats or Anxiety Last Admin: 04/18/18 20:00 Dose: 0.1 mg Dicyclomine HCl (Bentyl) 20 mg PO Q6H PRN PRN PRN Reason: Abdomnial Discomfort Last Admin: 04/19/18 09:03 Dose: 20 mg Erythromycin () 1 applic EACH EYE 4X/DAY [facility] Last Admin: 04/19/18 08:56 Dose: 1 applicatio Famotidine (Pepcid) 20 mg PO BID [facility] Last Admin: 04/19/18 08:55 Dose: 20 mg Hydroxyzine HCl (Vistaril Vial) 50 mg IM Q6H PRN PRN PRN Reason: Breakthrough Anxiety Hydroxyzine Pamoate (Vistaril Pamoate Capsule) 50 mg PO Q6H PRN PRN PRN Reason: Mild Anxiety Last Admin: 04/19/18 09:02 Dose: 50 mg Ibuprofen (Motrin) 600 mg PO Q6H PRN PRN PRN Reason: Mild-Moderate Pain (1-11/16) Last Admin: 04/19/18 08:55 Dose: 600 mg Loperamide HCl (Imodium) 2 - 4 mg PO UD PRN PRN Reason: LOOSE STOOLS Magnesium Hydroxide (Milk Of Magnesia) 30 ml PO DAILY PRN PRN PRN Reason: Constipation Methocarbamol (Methocarbamol) 750 mg PO Q6H PRN PRN PRN Reason: Muscle Aches Last Admin: 04/19/18 09:02 Dose: 750 mg Nicotine (Nicoderm Cq (Pbkc)) 21 mg TRANSDERM. DAILY [facility] Last Admin: 04/19/18 09:05 Dose: Not Given Nutritional Formula (Lactose Free) (Ensure Enlive) 120 ml PO 4X/DAY [facility] Last Admin: 04/19/18 09:03 Dose: 120 ml Ondansetron HCl (Zofran Odt) 4 mg PO Q6H PRN PRN PRN Reason: NAUSEA Last Admin: 04/19/18 09:02 Dose: 4 mg Pramipexole Dihydrochloride (Mirapex) 0.25 mg PO Q12H PRN PRN PRN Reason: Restless Legs Last Admin: 04/18/18 18:35 Dose: 0.25 mg Senna (Senokot) 1 tablet PO QHS PRN PRN PRN Reason: Constipation Sodium Chloride () 5 - 30 ml IV UD PRN PRN Reason: SALINE FLUSH Trazodone HCl (Desyrel) 50 mg PO QHS [facility] Last Admin: 04/18/18 21:40 Dose: 50 mg Medical Necessity - Tobacco Use Smoking Status: Current every day smoker Tobacco Use: Cigarettes Assessment/Plan All Active Problems Opiate abuse, continuous (Acute) Benzodiazepine abuse, continuous (Acute) 42-year-old female with past medical history of anxiety/depression, nicotine dependency, history of substance abuse who was admitted with acute opioid withdrawal symptoms. 1. Acute opioid withdrawal, patient's urine tox was negative for opioids and benzos, showed barbiturates Doubt that patient was truly in opiate withdrawal Will continue to be monitored under the [facility] protocol 2. Anxiety/depression, on Cymbalta 3. Nicotine use disorder, on replacement patch 4. GERD, on famotidine 5. DVT PPx- early ambulation. Code Visit Inpatient E&M: 57566 Subs Hosp L2
[2018-04-19 10:21] LABS: Anion Gap 5 (5-15); BUN 14 mg/dL (7-18); BUN/Creat Ratio 17.7 RATIO (10-20); Calcium,Total 8.7 mg/dL (8.5-10.1); Chloride 108 mmol/L (98-107); Creatinine, Serum 0.79 mg/dL (0.55-1.02); EST Glomerular Filtration Rate 84 mL/min (>60); Est Glom Filt Rate - Afr Amer 102 mL/min (>60); Estimated Creatinine Clearance 92.63 ml/min; Glucose 88 mg/dL (74-106); Sodium Level 144 mmol/L (136-145)
--- NOTE | 2018-04-19 10:40 | NURSING ---
REPORT CALLED TO SHANAE CARDENAS ON MS3 PRIOR TO PATIENT TRANSFER.
--- NOTE | 2018-04-19 12:28 | CASEMGMT ---
SW spoke w/pt, she requested to speak w/SW in regard to her boyfriend, who is also here in the hospital as per pt. Pt states she does not feel she can care for her boyfriend any longer at home, she states she is struggling to care for herself. SW explained got permission from boyfriend to speak w/her, and that SW is working w/her boyfriend on a discharge plan. She has told her boyfriend in the past she cannot care for him, but he does not believe her. Pt explains she will speak w/boyfriend when she is out of the hospital that she does not feel she can care for him any longer, feels this needs to come from her however. SW offered support to pt. She states is not going to abandon boyfriend, but just cannot care for him at this time. She states her son will not speak to her, and she is not going to lose her own family over this. Support offered. [facility] working w/pt on after care plan. SW remains available for support to pt as needed. GAVIOTA Man, REAL ESTATE PHOTOGRAPHER
--- NOTE | 2018-04-19 14:19 | CHAPLAIN ---
Type of Pastoral Visit _x__ Initial Visit ___ Follow-up Visit ___ On-call Visit ___ General Patient Visit ___ Spiritual Assessment ___ Family Conference ___ Bereavement ___ Rapid Response ___ Code Blue ___ Other (describe below) Pastoral Care Referral From _x__ Patient ___ Family ___ Nurse ___ Physician ___ Mri Supervisor ___ Seismograph Supervisor ___ Other (describe below) Sacrament/Intervention _x__ Active listening ___ Anointing ___ Sabianism ___ Bereavement ___ Communion _x__ Cintia exploration ___ _x__ Life review _x__ Prayer ___ Reconciliation ___ Sacrament of Sick _x__ Supportive presence ___ Wedding ___ Other (describe below) Pastoral Comments patient looking for stabilization and a better life for her son and his family as well as the boyfriend that she has been taking care of in her home; pt describes one very good friend who gives support but is not so certain about other family and co workers support; pt has lost three jobs and hopes to get life turned around; pt agreed to out patient counseling in the future; pt welcomes prayer support; pt is talkative
[2018-04-19] MEDS: cloNIDine HCl 0.1 MG Tablet PO (15:00)
[2018-04-19] MEDS: Pramipexole Di-HCl 0.25 MG Tablet PO (15:53)
[2018-04-19] MEDS: hydrOXYzine 50 MG/ML Vial IM (21:05)
[2018-04-19] MEDS: DULoxetine Hcl 30 MG Capsule PO (21:10)
[2018-04-19] MEDS: traZODone 50 MG Tablet PO (21:10)
[2018-04-20 02:00] VITALS: BP 101/57; PULSE 103; RESP 18; TEMP 38.3
[2018-04-20] MEDS: chlordiazePOXIDE 25 MG Capsule 50 MG PO ×2 (02:13→10:31)
[2018-04-20] MEDS: Ondansetron ODT 4 MG Tablet PO (02:33)
[2018-04-20] MEDS: Acetaminophen/Butalbital/Caffe 1 Tablet PO (02:47)
[2018-04-20] MEDS: Buprenorphine HCl 2 MG TAB.SUBL SL (06:56)
[2018-04-20 07:00] VITALS: BP 107/63; PULSE 75; RESP 16; TEMP 37.2
--- NOTE | 2018-04-20 08:54 | DCINST_ITS ---
- Discharge Diagnoses Reason(s) for Visit for Discharge Instructions: Nausea, muscle aches You will use the following diet at home:: Regular Your food should be the consistency of: Regular Your liquids should be the consistency of: Regular/Thin Discharge Activity: Return to Normal Activity Additional Instructions: Follow-up with the outpatient drug rehab programs. Allergies/Adverse Reactions: Allergies diphenhydramine [From Benadryl] Adverse Reaction (Verified 04/18/18 14:03) Other anxiety Medications to take at Discharge Duloxetine Hcl [Cymbalta] 30 mg PO BID 04/18/18 Nicotine [Nicoderm Cq] 21 mg TRANSDERM. DAILY #30 patch 04/20/18 The following prescriptions were given: Nicotine [Nicoderm Cq] 21 mg TRANSDERM. DAILY #30 patch Primary Care Physician: Miguel A Young DO [Primary Care Provider] - Test Results: Test results from this visit will be discussed in further detail at your follow- up appointment, if applicable. Proposed Discharge Date: 04/20/18
--- NOTE | 2018-04-20 08:54 | PCM.DC.SUM ---
Discharge Date and Diagnosis Date of Admission: 04/18/18 Date of Discharge: 04/20/18 - Primary Discharge Diagnosis Acute barbiturates withdrawal - Secondary Discharge Diagnosis Chronic Problems Tobacco use (Chronic) Anxiety and depression (Chronic) GERD Hospital Course and Treatment None Operations: None Procedures: None Summary of Care Provided: The patient is a 42 year old F with past medical history of anxiety/depression: Polysubstance use, nicotine dependence, reported opiate and benzodiazepine use disorder who presented on 04/18/18 with acute opiate and benzodiazepine withdrawals with abdominal pain, cramping, generalized body aches and pains as well as rhinorrhea. Patient had expressed interest in obtaining a clean status. She had been taking her boyfriend's Percocet with his consent. 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 She is reportedly on suspension for more than 2 reported incidents of concern when she is taking a patient or family members narcotic and benzodiazepine. She reports that she ran out of Percocet and Klonopin after these recent instances. She is on suspension until she takes a drug test. Patient was admitted for withdrawal symptoms but urine drug screen was positive only for barbiturates with no benzodiazepine or opiates. There was a concern for malingering and misuse of prescribed Klonopin with at least possibility of selling. Discussed with the patient's primary care doctor, Dr. Miguel A Young who has been filling patient's benzodiazepines. Patient was recently given 270 pills of benzodiazepine because she had told the primary care doctor that she needs to get her medications through the mail order. Discussed with [facility] staff, that we do not think the patient is actively withdrawing as urine tox was negative for benzodiazepines or opiate. She was subsequently discharged. Outpatient referrals were given to her for outpatient drug rehab programs to follow-up with as well as 180. Subjective: Patient was seen and examined day of discharge. She denies any new complaints except for some irritation of the eyes. Denies any diarrhea or nausea or vomiting. No acute events overnight. Objective: General: Alert, Oriented x3, Cooperative, No apparent distress HEENT: Atraumatic, PERRLA, EOMI, Normocephalic Oral: Moist Mucosa Neck: Supple, No JVD, Negative Carotid Bruits Lungs: Clear to auscultation, Normal air movement Cardiovascular: Regular rate, Regular Rhythm, Normal S1, Normal S2, No murmurs Abdomen: Bowel Sounds Present, Soft, Non Tender, Non-Distended, No Hepato-splenomegaly Extremities: No edema, Capillary Refill Less than 3 Seconds Skin: No rashes, No breakdown Musculoskeletal: No Tenderness to Palpation of Joints or Extremities Neurological: Cranial nerves II-XII grossly intact, Neuro grossly intact Psych/Mental Status: Normal Affect, Appropriate - Physical Exam Vital Signs Temp Pulse Resp BP Pulse Ox 98.9 F 75 16 107/63 93 04/20/18 07:00 04/20/18 07:00 04/20/18 07:00 04/20/18 07:00 04/19/18 14:03 Oxygen Delivery Method Room Air Weight: 70.5 kg Body Mass Index (BMI) 23.6 Intake and Output for Last 24 Hours 04/18/18 04/19/18 04/20/18 23:59 23:59 23:59 Intake Total 536 / 536 1651 / 1651 400 / 400 Balance 536 / 536 1651 / 1651 400 / 400 Laboratory Tests Past 24 Hrs 04/19/18 09:48 Sodium 144 Potassium 4.0 Chloride 108 H Carbon Dioxide 31.0 Anion Gap 5 BUN 14 Creatinine 0.79 Estim Creat Clear Calc 92.63 Est GFR (MDRD) Af Amer 102 Est GFR (MDRD) Non-Af 84 BUN/Creatinine Ratio 17.7 Glucose 88 Calcium 8.7 Discharge Diet: No Restrictions Discharge Activity: Return to Normal Activity Home Medications: Medications to take at Discharge RX: Duloxetine Hcl [Cymbalta] 30 mg PO BID 04/18/18 RX: Nicotine [Nicoderm Cq] 21 mg TRANSDERM. DAILY #30 patch 04/20/18 Following Prescrptions Were Given to Patient: RX: Nicotine [Nicoderm Cq] 21 mg TRANSDERM. DAILY #30 patch Primary Care Physician: Miguel A Young DO [Primary Care Provider] - Please follow up with your Primary Care Physician in: within 2 weeks Disposition: Home Minutes spent on discharge:: 45 - Discussing discharge follow-up with primary care doctor as well as updating him on inpatient care Patient Condition:: Stable Medical Necessity - Tobacco Use Smoking Status: Current every day smoker Tobacco Use: Cigarettes Meaningful Use Info Meaningful Use Diagnoses (Choose all that apply): None applicable Code Visit Inpatient E&M: 77958 Disch Hosp
[2018-04-20 10:27] VITALS: BP 119/75; PULSE 87; RESP 16; TEMP 36.8; O2SAT 94
[2018-04-20] MEDS: Ibuprofen 600 MG Tablet PO (10:31)
[2018-04-20] MEDS: DULoxetine Hcl 30 MG Capsule PO (10:31)
[2018-04-20] MEDS: Famotidine 20 MG Tablet PO (10:31)
[2018-04-20] MEDS: Acetaminophen 500 MG Tablet PO (15:05)
== END 2018-04-20 15:22 | disposition home or self-care (01) | DRG 435 ==
LOC: MS2 04-19 07:10 → MS3 04-19 10:52
PROVIDERS: Admitting Provider Family Medicine; Family Provider Family Medicine; PCP Family Medicine; Referring Provider Family Medicine; Visit Provider Internal Medicine
DX: F11.23 Opioid dependence with withdrawal (principal); F32.9 Major depressive disorder, single episode, unspecified; F41.9 Anxiety disorder, unspecified; K21.9 Gastro-esophageal reflux disease without esophagitis; Z72.0 Tobacco use
CPT/HCPCS: 80048; 80053; 80307; 80320; 83690; 85025; 99406; J7120; G0480

== ENCOUNTER 2018-06-05 10:27 | Emergency (ER) | payer MEDICAID, SELFPAY ==
[2018-06-05 10:30] VITALS: BP 148/95; PULSE 92; RESP 18; TEMP 36.3; O2SAT 98; BMI 24.3
--- NOTE | 2018-06-05 11:04 | ED.VISSUMM ---
- ER Visit Summary Date of Service: 06/05/18 Chief Complaint: [Cough] History of Present Illness: The patient is a 42 F [presents to the emergency department complaint of a cough that started about a week ago. Patient states she is coughing up thick yellow sputum. Patient's not had a fever but she has had chills and sweats. 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 Patient denies any ear pain or sore throat. She has been using [id number] cough suppressants unsuccessfully.] Physical Examination: [HEENT-PERRLA, EOMI. Cranial nerves II through XII grossly intact. TMs clear. Mucous membranes moist. No adenopathy. Cardiovascular-regular rate and rhythm without murmur or ectopy Lungs-clear to auscultation, chest wall stable without crepitus or subcu emphysema Abdomen-normoactive bowel sounds, soft, nontender, no rebound or rigidity, no peritoneal signs. Extremities-intact ?4, normal range of motion, normal pulses, atraumatic] Test Results: [None indicated] Emergency Department Course and Treatment: [Patient will be started on Zithromax] Treatment Plan: [Patient will be treated Zithromax and Tessalon Perles] Disposition: [Discharged home in stable condition] Impression: [Bronchitis] This note was generated with [employer] dictation software. It may contain incorrect words, spelling, and punctuation that were not noted in review of the chart prior to signing ED Disposition - Plan for ED Patient: Chief Complaint: Cold Sx Referrals: Miguel A Young DO [Primary Care Provider] -
--- NOTE | 2018-06-05 11:06 | ED.DEP ---
ED Disposition - Plan for ED Patient: Chief Complaint: Cold Sx Instructions: ED Upper Resp Infec Abx Tx Prescriptions: Azithromycin [Zithromax] 250 mg PO DAILY #4 tab Benzonatate [Tessalon Perle] 200 mg PO TID PRN PRN #20 cap PRN Reason: Cough Referrals: Miguel A Young DO [Primary Care Provider] - 5-7 Days
[2018-06-05] MEDS: Azithromycin 250 MG Tablet 500 MG PO (11:27)
--- OUTSIDE RECORDS SUMMARY | 2018-07-18 03:02 | XMS RPT_ITS ---
:1975 Author Organization [place] Support Name Relationship Address Phone [facility] Unavailable [address] + [place] [address] MARIA L MARKHAM Unavailable Unavailable + [place] [address] [facility] Unavailable [address] + [place] [address] ELEUTERIO MILLER Unavailable [address] + [place] [address] Eleuterio Dong Unavailable Unavailable + ELEUTERIO MILLER Unavailable Unavailable + NARESH Unavailable [address] [facility] + [place] [address] ELEUTERIO MILLER Unavailable Unavailable + NARESH Unavailable [address] [facility] + [place] [address] ELEUTERIO MILLER Unavailable Unavailable + NARESH Unavailable [address] [facility] + [place] [address] ELEUTERIO MILLER Unavailable Unavailable + NARESH Unavailable [address] [facility] + [place] [address] MARIA L MARKHAM Unavailable Unavailable + MARIA L MARKAHM Unavailable Unavailable + MARIA L MARKHAM Unavailable Unavailable + MARIA L MARKHAM Unavailable Unavailable + RASHIMARIA L WONG Unavailable Unavailable + RASHIMARIA L WONG Unavailable Unavailable + RASHIMARIA L WONG Unavailable Unavailable + RASHIMARIA L WONG Unavailable Unavailable + RASHIMARIA L WONG Unavailable Unavailable + PAULSHANNON ARMSTRONGIE Unavailable [address] + [place] [address] NARESH Unavailable [address] [facility] + [place] [address] MARIA L MARKHAM Unavailable [address] + [place] [address] NARESH Unavailable [address] [facility] + [place] [address] RASHIMARIA L Unavailable Unavailable + RASHIMARIA L WONG Unavailable Unavailable + RASHIMARIA L WONG Unavailable Unavailable + MARIA L MARKHAM Unavailable [address] + [place] [address] NARESH Unavailable [address] [facility] + [place] [address] Care Team Providers Name Role Phone Nel Harvey Attending Unavailable Nel Harvey Referring Unavailable Kennedy, Chavez Primary Care Unavailable Kennedy, Chavez Primary Care Unavailable Sabas Bray Attending Unavailable Kennedy, Chavez Primary Care Unavailable Jaden Messer Attending Unavailable White, Barbara Admitting Unavailable White, Barbara Referring Unavailable Kennedy, Chavez Primary Care Unavailable Paintsil, Florence Attending Unavailable White, Barbara Admitting Unavailable White, Barbara Attending Unavailable White, Barbara Referring Unavailable Kennedy, Chavez Primary Care Unavailable White, Barbara Consulting Unavailable White, Barbara Admitting Unavailable Paintsil, Florence Attending Unavailable White, Barbara Referring Unavailable Kennedy, Chavez Primary Care Unavailable Paintsil, Florence Consulting Unavailable White, Barbara Admitting Unavailable Paintsil, Florence Attending Unavailable White, Barbara Referring Unavailable Kennedy, Chavez Primary Care Unavailable Paintsil, Florence Consulting Unavailable Kennedy, Chavez Primary Care Unavailable Cady Vera Attending Unavailable Chavez Young Primary Care Unavailable Moe Ross Attending Unavailable KENNEDY GARDNER, DR. SEAN Patterson Primary Care Unavailable BASSAM QUEZADA Attending Unavailable HETAL STEVEN DO Attending Unavailable KENNEDY GARDNER, DR. SEAN Patterson Primary Care Unavailable JOE MOCTEZUMA DO Attending Unavailable KENNEDY GARDNER, DR. SEAN Patterson Primary Care Unavailable Jacqueline Cotter MD Attending Unavailable KENNEDY GARDNER, DR. SEAN Patterson Primary Care Unavailable Vance Cisneros Attending Unavailable PROVIDER, UNKNOWN Referring Unavailable Chavez Young Primary Care Unavailable RichardLinda Admitting Unavailable Shameka Ramosani Attending Unavailable Genny Marshall CNP Attending Unavailable PROBLEMS PROBLEMS DATE TYPE CONDITION / CODE ATTENDING STATUS SOURCE 11/23/2017 Admitting Unknown / Richard, Linda Active [facility] diagnosis UNK(Unknown) [facility] Repository 10/02/2017 Unknown M06.4 - Inflammatory Vellanki, Active Isabelle polyarthropathy / [facility] M06.4(ICD-10) Hospital Repository 10/02/2017 Unknown 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, Active Wharton syndrome, [facility] unspecified / Hospital M35.00(ICD-10) Repository 10/02/2017 Unknown M79.7 - Fibromyalgia Vellanki, Active Isabelle / M79.7(ICD-10) [facility] Repository PROCEDURES PROCEDURES No Procedure Records FoundRESULTS RESULTS CBC Collected: 06/15/2018 Status: F Source: [facility] 9:20 AM [facility] REPOSITORY TYPE CODE TESTS RESULT OUT OF RANGE REFERENCE UNITS LAB L200.78396 4.5-11.0 K/CU MM Normal WBC 8.7 LAB L200.43833 3.9-5.30 M/CU MM Normal RBC 4.40 LAB L200.98259 11.5-15.5 GM/DL Normal HGB 14.2 LAB L200.66402 35.0-47.0 % Normal HCT 40.3 LAB L200.87342 80.0-99.0 fl Normal MCV 91.6 LAB L200.83401 32.0-36.0 GM/DL Normal MCHC 35.2 LAB L200.24302 11-14.5 Normal RDW 11.9 LAB L200.93029 9.4-12.4 Normal MPV 12.0 LAB L200.98341 150-450 K/CU MM Normal PLT 278 LAB L200.30091 Less than 1 % Normal NRBC 0.0 Performed By: #### L200.69143, L550.90535 #### [facility] [address] [place] [address] HGB A1C GLYCOHB Collected: 06/15/2018 Status: F Source: [facility] 9:20 AM [facility] REPOSITORY TYPE CODE TESTS RESULT OUT OF RANGE REFERENCE UNITS LAB L550.46644 4.3-6.0 Normal HGB A1C 5.3 GLYCOHB Performed By: #### L200.03022, L550.46672 #### [facility] [address] [place] [address] CMP Collected: 06/15/2018 Status: F Source: [facility] 9:20 AM [facility] REPOSITORY TYPE CODE TESTS RESULT OUT OF RANGE REFERENCE UNITS LAB L500.90986 136-145 MMOL/L Normal NA 142 LAB L500.16741 3.5-5.1 MMOL/L Normal K 4.8 LAB L500.93447 98-107 MMOL/L Normal CL 107 LAB L500.08036 21-32 MMOL/L Normal CO2 28 LAB L500.63759 5-16 MMOL/L Normal AGAP 7 LAB L500.11214 70-100 MG/DL Normal GLU 77 Result Comment: 70-100- Normal Fasting; 100-125 Impaired Fasting; greater than 126 on more than one result- Diabetes. ADA guidelines. Results may be falsely elevated after the administration of Sulfapyridine. Results may be falsely depressed after the administration of Sulfasalazine. LAB L500.77326 7-26 MG/DL Normal BUN 16 LAB L500.56744 0.510-0.950 MG/DL Normal CREAT 0.746 Result Comment: Patients receiving either N-Acetylcysteine (NAC) or Metamizole prior to venipuncture, may have falsely depressed results. LAB L500.80784 15-24 Normal BUN/CREA 22 LAB L500.35470 6.0-8.5 GM/DL Normal TP 7.7 LAB L500.96305 3.2-5.0 GM/DL Normal ALBUMIN 4.2 LAB L500.54121 2.2-4.2 GM/DL Normal GLOBULIN 3.5 LAB L500.62896 0.8-2.0 Normal A/G RATIO 1.2 LAB L500.83690 8.5-10.1 MG/DL Normal CALCIUM TOTAL 9.4 LAB L500.33508 0.2-1.0 MG/DL Normal BILI TOTAL 0.3 LAB L500.84755 8-34 U/L Normal SGOT (AST) 17 Result Comment: RESULTS MAY BE FALSELY DEPRESSED AFTER THE ADMINISTRATION OF SULFASALAZINE AND/OR SULFAPYRIDINE. LAB L500.09370 13-61 IU/L Normal SGPT (ALT) 20 Result Comment: RESULTS MAY BE FALSELY DEPRESSED AFTER THE ADMINISTRATION OF SULFASALAZINE AND/OR SULFAPYRIDINE. LAB L500.83454 45-117 U/L Normal ALK PHOS 116 Performed By: #### L500.40246, L500.92063, L500.29875, L500.80729, L500.63209, L500.45648, L550.45814 #### [facility] [address] [place] [address] GFR EST Collected: 06/15/2018 Status: F Source: [facility] 9:20 AM [facility] REPOSITORY TYPE CODE TESTS RESULT OUT OF RANGE REFERENCE UNITS LAB L500.96067 ML/MIN Normal IF non-AFR Greater than AMER 60 LAB L500.92956 ML/MIN Normal IF Greater than AMER 60 Performed By: #### L500.92354, L500.69768, L500.50085, L500.42476, L500.11010, L500.30880, L550.98546 #### [facility] [address] [place] [address] LIPID Collected: 06/15/2018 Status: F Source: [facility] 9:20 AM [facility] REPOSITORY TYPE CODE TESTS RESULT OUT OF RANGE REFERENCE UNITS LAB L500.02062 30-149 MG/DL High TRIG 287 Result Comment: Patients receiving either N-Acetylcysteine (NAC) or Metamizole prior to venipuncture, may have falsely depressed results. LAB L500.14846 0-199 MG/DL Normal CHOL 198 LAB L500.67219 GREATER TN 40 MG/DL Normal HDL DIRECT 41 Result Comment: Patients receiving Metamizole prior to venipuncture, may have falsely depressed results. LAB L500.87778 0-129 MG/DL Normal LDL 99 Result Comment: ___CHOLESTEROL/HDL RATIO RISK___ CHD RISK = Total CHOL LDL HDL (CHOL/HDL) Recommended <200 <130 >35 <3.4 Borderline 200-239 130-159 3.4-4.99 High >240 >160 >5.0 Performed By: #### L500.71156, L500.28216, L500.49262, L500.89251, L500.02148, L500.79830, L550.07625 #### [facility] [address] [place] [address] B12 Collected: 06/15/2018 Status: F Source: [facility] 9:20 AM [facility] REPOSITORY TYPE CODE TESTS RESULT OUT OF RANGE REFERENCE UNITS LAB L500.80498 193-986 PG/ML Normal B12 624.4 Performed By: #### L500.72005, L500.27982, L500.78400, L500.05944, L500.87310, L500.62536, L550.75496 #### [facility] [address] [place] [address] T4 FREE Collected: 06/15/2018 Status: F Source: [facility] 9:20 AM [facility] REPOSITORY TYPE CODE TESTS RESULT OUT OF RANGE REFERENCE UNITS LAB L500.61381 0.76-1.46 NG/DL Low T4 FREE 0.73 Performed By: #### L500.41244, L500.76743, L500.00737, L500.97540, L500.58324, L500.43356, L550.23609 #### [facility] [address] [place] [address] TSH Collected: 06/15/2018 Status: F Source: [facility] 9:20 AM [facility] REPOSITORY TYPE CODE TESTS RESULT OUT OF RANGE REFERENCE UNITS LAB L500.77804 0.358-3.740 UIU/ML Normal TSH 0.928 Result Comment: 3rd generation ultra sensitive TSH Performed By: #### L500.05340, L500.57575, L500.25561, L500.69026, L500.22254, L500.20437, L550.12341 #### [facility] [address] [place] [address] [id number] Collected: 06/15/2018 Status: F Source: [facility] 9:20 AM [facility] REPOSITORY TYPE CODE TESTS RESULT OUT OF RANGE REFERENCE UNITS LAB L550.07422 30.0-100.0 NG/ML Low 19.8 TKEQ73-UPHSQ XY Result Comment: Deficiency Less than 20 ng/mL Insufficiency 20 - Less than 30 ng/mL Sufficiency 30 - 100 ng/mL Performed By: #### L500.83407, L500.12178, L500.43355, L500.95643, L500.49886, L500.82034, L550.91197 #### [facility] [address] [place] [address]# [phone] 12 LEAD ELECTROCARDIOGRAM Observed: 06/12/2018 Status: F Source: [place] 2:17 PM [facility] Cardiovascular Services [address] [place] [address] 12 Lead EKG 06/07/18 0828 MR#: [id number] Acct: [id number] Name: GUZMANLISS M Rep #: [id number] : 1975 42 From: Leonidas Parsons MD Attending Dr: Status: DEP ER Ordering Dr: Moe Ross MD Date: 06/07/18 Location: ED Sex: F C Admitted: Test Reason : DYSRHYTHMIA Blood Pressure : / mmHG Vent. Rate : 077 BPM Atrial Rate : 077 BPM P-R Int : 146 ms QRS Dur : 080 ms QT Int : 368 ms P-R-T Axes : 061 043 047 degrees QTc Int : 416 ms Normal sinus rhythm Normal ECG Confirmed by BAY ANNE, LEONIDAS ([id number]), editor house organ ASHA MOCTEZUMA ([id number]) on 06/12/2018 2:17:02 PM Referred By: CINDI Confirmed By:LEONIDAS PARSONS MD 06/12/18 1417 Date Leonidas Parsons MD CC: Moe Ross MD; Chavez Young DO Signed DISCHARGE INSTRUCTION Observed: 06/07/2018 Status: F Source: [place] 3:56 PM [facility] Medical Records Department [address] [place] [address] Discharge Instruction 06/07/18 0947 MR#: [id number] Acct: [id number] Name: LISS GUZMAN Rep #: [id number] : 1975 42 From: Moe Ross MD PCP: Chavez Young DO Status: DEP ER ED Disposition - Plan for ED Patient: Chief Complaint: Substance Abuse Instructions: ED Withdrawal Narcotic Prescriptions: Ondansetron [Zofran Odt] 4 mg PO Q8H PRN PRN #10 tab PRN Reason: Nausea Doxycycline Monohydrate 100 mg PO BID #14 cap Referrals: EIGHTY,ONE [STAFF PHYSICIAN] - What to do if you have Problems For any increased pain, shortness of breath, bleeding, nausea or vomiting, chest pain, or any unexpected problems, contact your Primary Care Provider. Call [facility] ([phone]) or report to the closest Emergency Room. Call 911 if necessary. 06/07/18 1556 <Electronically signed by Moe Ross MD> Date Moe Ross MD Cosigner Signature (If Indicated): Date CC: Chavez Young DO EMERGENCY DEPARTMENT Observed: 06/07/2018 Status: F Source: [place] SUMMARY 3:56 PM [facility] REPOSITORY [facility] Medical Records Department [address] [facility] [place] [address] Emergency Department Summary 06/07/18 0815 MR#: [id number] Acct: [id number] Name: LISS GUZMAN Rep #: [id number] : 1975 42 From: Moe Ross MD PCP: Chavez Young DO Status: DEP ER - ER Visit Summary Date of Service: 06/07/18 Chief Complaint: Detox from opioids History of Present Illness: The patient is a 42 F who is requesting opioid detox. She has a history of opioid abuse and has been using Vicodin daily for the past month. She stopped about 3 days ago, and she is having withdrawal symptoms. She says that she was using 3 tablets at a time, multiple times per day. She was taking Percocet occasionally. She denies any IV opioid use. She uses benzodiazepines occasionally, but not daily or regularly. She denies alcohol use. She was admitted to [facility] for 2 days in April of this year. She was subsequently admitted at [facility] for what she describes as anxiety. She said she was not treated for detox or withdrawal at that time. She has had increasing cough and congestion since she stopped Vicodin this week, and was seen in this emergency department earlier this week for bronchitis symptoms. She reports nausea, vomiting, decreased sleep, decreased PO intake, cough, aches. Patient has a history of a complete hysterectomy. Physical Examination: Heart rate 96, otherwise vitals unremarkable. Lungs clear throughout. Abdomen soft. Skin appears slightly pale but otherwise normal. She is alert and oriented. Depressed mood and flat affect. Test Results: EKG, chest x-ray, labs, drug screen pending Emergency Department Course and Treatment: Patient has a COWS score of 19. [facility] was contacted and they will evaluate the patient. Medical clearance is underway. Patient's workup was unremarkable. Her tox screen did test positive for opioids, MDMA, and benzodiazepines. Her chest x-ray was unremarkable. Blood counts normal. Everything else unremarkable. I did speak with the [facility] contact clerk. The patient does not have active Medicaid and cannot be admitted. There is no indication for a medical admission. Patient will be referred to 180 for outpatient follow-up. Treatment Plan: As above Disposition: Discharge Impression: 1. Opioid withdrawal 2. Acute bronchitis This note was generated with [employer] dictation software. It may contain incorrect words, spelling, and punctuation that were not noted in review of the chart prior to signing ED Disposition - Plan for ED Patient: Chief Complaint: Substance Abuse Referrals: Chavez Young, DO [Primary Care Provider] - What to do if you have Problems For any increased pain, shortness of breath, bleeding, nausea or vomiting, chest pain, or any unexpected problems, contact your Primary Care Provider. Call [facility] ([phone]) or report to the closest Emergency Room. Call 911 if necessary. 06/07/18 8475 <Electronically signed by Moe Ross MD> Date Moe Ross MD Cosigner Signature (If Indicated): Date CC: Chavez Young DO CBC W/DIFF, AUTOMATED Collected: 06/07/2018 Status: F Source: [place] 8:20 AM [facility] REPOSITORY TYPE CODE TESTS RESULT OUT OF RANGE REFERENCE UNITS LAB L100.1000 4.4-11.0 K/mm3 Normal WBC 8.6 LAB L100.1200 4.2-5.4 M/mm3 Low RBC 4.16 LAB L100.1300 12.0-15.0 g/dl Normal HGB 13.4 LAB L100.1400 37-47 % Normal HCT 38.4 LAB L100.1500 81-99 fL Normal MCV 92.3 LAB L100.1600 27.0-32.0 pg High MCH 32.2 LAB L100.1700 32-36 g/gl Normal MCHC 34.9 LAB L100.1810 11.6-14.6 % Normal RDW CV 11.6 LAB L100.1820 35.1-43.9 fl Normal RDW SD 38.7 LAB L100.1900 150-450 K/mm3 Normal PLT 278 LAB L100.2000 6.2-12.0 fl Normal MPV 10.0 LAB L100.2100 47-70 % Normal NEUT% 66.1 LAB L100.2200 19-41 % Normal LY% 24.1 LAB L100.2300 0-10 % Normal MONO% 8.0 LAB L100.2400 0-5 % Normal EO% 0.9 LAB L100.2500 0-1 % Normal BASO% 0.1 LAB L100.2550 0.0-0.9 % Normal IM GRAN % 0.800 Result Comment: IG% - Immature Granulocytes (promyelocytes, myelocytes and metamyelocytes) > 1% indicates that a LEFT SHIFT is Present. LAB L100.2620 2.0-7.7 X10 3/uL Normal Absolute Neut 5.7 LAB L100.2720 0.83-4.51 X10 3/ul Normal Absolute Lymph 2.06 Performed By: #### L100.0100 #### [facility] [address] [place], [address] COMPREHENSIVE METABOLIC Collected: 06/07/2018 Status: F Source: [place] 8:20 AM [facility] REPOSITORY TYPE CODE TESTS RESULT OUT OF RANGE REFERENCE UNITS LAB L501.0100 74-106 mg/dL High GLU 117 Result Comment: Fasting Glucose result from 100 to 125 mg/dL suggests IMPAIRED HOMEOSTASIS per A.D.A. criteria. Please note revised GLUCOSE reference range effective 2017. LAB L501.1000 7-18 mg/dL Normal BUN 13 LAB L501.1100 0.55-1.02 mg/dL Normal CREAT,SERUM 0.77 Result Comment: The validity of the calculated GFR AND GFRAA in patients over 70 years has not been determined. Clinical correlation is essential. LAB L501.1110 >60 mL/min Normal EST GFR 87 Result Comment: Non- GFR Calc LAB L501.1115 >60 mL/min Normal EST GFR - AA 105 Result Comment: GFR Calc LAB L501.1255 ml/min Normal Estimated CRCL 95.03 LAB L501.1300 10-20 RATIO Normal BUN/CRE 16.8 LAB L501.1500 6.4-8. g/dL Normal 2 T PROT 7.6 LAB L501.1800 3.2-5. g/dL Normal 0 ALB 3.9 LAB L501.1950 2.2-4. g/dL Normal 2 GLOB 3.7 LAB L501.2000 0.9-2. RATIO Normal 4 A/G 1.1 LAB L501.2200 8.5-10 mg/dL Normal .1 CA 8.9 LAB L501.4100 15-37 U/L Normal AST 17 LAB L501.4305 45-117 U/L Normal ALK P 96 LAB L501.4405 13-56 U/L Normal ALT 20 LAB L501.4600 0.20-1 mg/dL Normal .00 T BILI 0.40 LAB L501.5300 136-14 mmol/L Normal 5 NA 139 LAB L501.5600 3.5-5. mmol/L Normal 1 K 3.7 LAB L501.5900 98-107 mmol/L Normal CL 107 LAB L501.6100 21.0-3 mmol/L Normal 2.0 CO2 25.0 LAB L501.6200 5-15 Normal GAP 7 Performed By: #### L500.4050 #### [facility] [address] [place], [address] ALCOHOL, BLOOD Collected: 06/07/2018 Status: F Source: [place] (MEDICAL)-SERUM 8:20 AM [facility] REPOSITORY TYPE CODE TESTS RESULT OUT OF RANGE REFERENCE UNITS LAB L501.9100 mg/dL Normal SERUM < 3.0 ETOH Result Comment: The serum:whole blood ethanol ratio is approximately 1.14 and varies slightly with hematocrit. Medical Alcohol reference interval and critical value in non-tolerant individuals; 50 - 100 Impairment 100 Intoxication 100 - 250 Severe Poisoning 250 - 400 Deep/possible fatal coma Performed By: #### L501.9100 #### [facility] [address] [place], [address] SALICYLATE Collected: 06/07/2018 Status: F Source: [place] 8:20 AM [facility] REPOSITORY TYPE CODE TESTS RESULT OUT OF RANGE REFERENCE UNITS LAB L501.8300 2.8-20.0 mg/dL Normal SALICYLATE 4.1 Performed By: #### L501.8300, L501.8400 #### [facility] [address] [place], [address] ACETAMINOPHEN (TYLENOL) Collected: 06/07/2018 Status: F Source: [place] LEVEL 8:20 AM [facility] REPOSITORY TYPE CODE TESTS RESULT OUT OF REFERENCE UNITS RANGE LAB L501.8400 10.0-30.0 ug/mL ACETAMINOPHEN Low < 2.0 Performed By: #### L501.8300, L501.8400 #### [facility] [address] [place], [address] URINE DRUG SCREEN Collected: 06/07/2018 Status: F Source: [place] (VISTA) 8:10 AM [facility] REPOSITORY TYPE CODE TESTS RESULT OUT OF RANGE REFERENCE UNITS LAB L505.0075 TO BE Normal CONFIRMED Result Comment: CONFIRMATORY TESTING FOR ALL POSITIVE URINE DRUG SCREEN RESULTS WILL ONLY BE SENT OUT UPON PHYSICIAN ORDER. VISTA Urine Drug Screen methods provide only preliminary analytical test results. A more specific alternate chemical method must be used in order to obtain a confirmed analytical result. Gas chromatography/mass spectrometery (GC/MS) is the preferred confirmatory method. Clinical consideration and professional judgement should be applied to any drug of abuse test result, particularly when preliminary positive results are used. URINE TCA TESTING MUST BE ORDERED SEPARATELY. USE TEST MNEMONIC: [facility] LAB L505.5005 VISTA UDS PH 5 Normal LAB L505.5015 <1000 ng/mL AMPHETAMINES Normal NEGATIVE LAB L505.5025 < 200 ng/mL BARBITIURATES Normal NEGATIVE LAB L505.5035 < 200 High ng/mL BENZODIAZIPINE POSITIVE LAB L505.5045 < 300 ng/mL COCAINE Normal NEGATIVE LAB L505.5055 < 500 High ng/mL ECSTACY POSITIVE LAB L505.5065 < 300 ng/mL METHADONE Normal NEGATIVE LAB L505.5075 < 300 High ng/mL OPIATES POSITIVE LAB L505.5085 < 25 ng/mL PCP Normal NEGATIVE LAB L505.5095 < 50 ng/mL THC Normal NEGATIVE Performed By: #### L505.5000 #### [facility] [address] [place], [address] CHEST 1 VIEW Observed: 06/07/2018 Status: F Source: [place] (PORTABLE) 8:09 AM [facility] REPOSITORY [facility] Imaging Services [address] [place] [address] Chest 1 View (Portable) MR#: [id number] Acct: [id number] Name: LISS GUZMAN Rep #: [id number] : 1975 F 42 From: Jose Campo MD PCP: Chavez Young DO Status: REG ER Study: Chest 1 View (Portable) Date of Exam: 06/07/18 Exam# [id number] Ordering Dr: Moe Ross MD STUDY: X-RAY CHEST REASON FOR EXAM: Female, 42 years old. Cough. TECHNIQUE: Single AP portable view of the chest. COMPARISON: None. FINDINGS: The lungs are clear and expanded. There is no demonstrated pleural abnormality. Normal size heart. Normal mediastinum and promise. Normal visualized pulmonary arteries. Normal visualized aortic arch and descending thoracic aorta. Normal visualized thoracic spine. Normal visualized ribs, clavicles, and shoulders. There is no demonstrated abnormality of the visualized soft tissue structures of the upper abdomen. RAD/Chest 1 View (Portable) IMPRESSION: Normal x-ray examination of the chest. Electronically Signed: Jose Campo MD at 8:49 EST Tel [phone], Service support , CC: Moe Ross MD; Chavez Young DO Divisional Storekeeper: Signed DISCHARGE INSTRUCTION Observed: 06/05/2018 Status: F Source: [place] 11:09 AM [facility] Medical Records Department [address] [place] [address] Discharge Instruction 06/05/181105 MR#: [id number] Acct: [id number] Name: LISS GUZMAN Rep #: [id number] : 1975 42 From: Cady Vera DO PCP: Chavez Young DO Status: PRE ER ED Disposition - Plan for ED Patient: Chief Complaint: Cold Sx Instructions: ED Upper Resp Infec Abx Tx Prescriptions: Azithromycin [Zithromax] 250 mg PO DAILY #4 tab Benzonatate [Tessalon Perle] 200 mg PO TID PRN PRN #20 cap PRN Reason: Cough Referrals: Chavez Young DO [Primary Care Provider] - 5-7 Days What to do if you have Problems For any increased pain, shortness of breath, bleeding, nausea or vomiting, chest pain, or any unexpected problems, contact your Primary Care Provider. Call [facility] ([phone]) or report to the closest Emergency Room. Call 911 if necessary. 06/05/18 1109 <Electronically signed by Cady Vera DO> Date Cady Vera DO Cosigner Signature (If Indicated): Date CC: Chavez Young DO EMERGENCY DEPARTMENT Observed: 06/05/2018 Status: F Source: [place] SUMMARY 11:06 AM [facility] REPOSITORY [facility] Medical Records Department [address] [place] [address] Emergency Department Summary 06/05/18 1104 MR#: [id number] Acct: [id number] Name: LISS GUZMAN Rep #: [id number] : 1975 42 From: Cady Vera DO PCP: Chavez Young DO Status: PRE ER - ER Visit Summary Date of Service: 06/05/18 Chief Complaint: [Cough] History of Present Illness: The patient is a 42 F [presents to the emergency department complaint of a cough that started about a week ago. Patient states she is coughing up thick yellow sputum. Patient's not had a fever but she has had chills and sweats. 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 Patient denies any ear pain or sore throat. She has been using [id number] cough suppressants unsuccessfully.] Physical Examination: [HEENT-PERRLA, EOMI. Cranial nerves II through XII grossly intact. TMs clear. Mucous membranes moist. No adenopathy. Cardiovascular-regular rate and rhythm without murmur or ectopy Lungs-clear to auscultation, chest wall stable without crepitus or subcu emphysema Abdomen-normoactive bowel sounds, soft, nontender, no rebound or rigidity, no peritoneal signs. Extremities-intact 4, normal range of motion, normal pulses, atraumatic] Test Results: [None indicated] Emergency Department Course and Treatment: [Patient will be started on Zithromax] Treatment Plan: [Patient will be treated Zithromax and Tessalon Perles] Disposition: [Discharged home in stable condition] Impression: [Bronchitis] This note was generated with [employer] software. It may contain incorrect words, spelling, and punctuation that were not noted in review of the chart prior to signing ED Disposition - Plan for ED Patient: Chief Complaint: Cold Sx Referrals: Chavez Young, [Primary Care Provider] - What to do if you have Problems For any increased pain, shortness of breath, bleeding, nausea or vomiting, chest pain, or any unexpected problems, contact your Primary Care Provider. Call [facility] ([phone]) or report to the closest Emergency Room. Call 911 if necessary. 06/05/18 1106 <Electronically signed by Cady Vera DO> Date Cady [employer] LO Cosigner Signature (If Indicated): Date CC: Chavez Young DO LIPID PANEL Collected: 04/24/2018 Status: F Source: DropMat 6:20 AM SYSTEM REPOSITORY TYPE CODE TESTS RESULT OUT OF RANGE REFERENCE UNITS LAB 3CHOL < 200 mg/dL Cholesterol Abnormal 219 LAB 3TRIG <150 mg/dL Abnormal Triglyceride 212 LAB HDLC 40-60 mg/dL Low HDL Cholesterol 35 LAB LDL4 <100 mg/dL Low Density Abnormal Lipoprotein 142 LAB CHLHD NA Chol/HDL 6 Result Comment: Ref Range: < 3 Low Risk for CHD 3-6 Mod Risk for CHD > 6 High Risk for CHD Performed By: #### LIPD2, HA1C2 #### [facility] [address] [place] [id number] HEMOGLOBIN A1C Collected: 04/24/2018 Status: F Source: DropMat 6:20 AM SYSTEM REPOSITORY TYPE CODE TESTS RESULT OUT OF RANGE REFERENCE UNITS LAB A1C2 4.0-5.7 % Normal Hemoglobin A1C 5.0 Result Comment: --HgbA1C levels may not be accurate in patients who have renal disease, received recent blood transfusions, are anemic, or who have dyshemoglobinemia. LAB EAG2 mg/dL Estimated Avg Glucose 97 Performed By: #### LIPD2, HA1C2 #### [facility] [address] [place] [address] HEMOGRAM W/ AUTODIFF Collected: 04/22/2018 Status: F Source: DropMat 2:12 PM SYSTEM REPOSITORY TYPE CODE TESTS RESULT OUT OF REFERENCE UNITS RANGE LAB IWBC 3.6-10.7 10*3/uL WBC Normal 10.0 LAB RBC 3.80-5.20 10*6/uL RBC Normal 4.51 LAB HGB 11.7-16.0 g/dL Hemoglobin Normal 14.2 LAB HCT 35.0-47.0 % Hematocrit Normal 40.3 LAB MCV 79.0-98.0 fL MCV Normal 89.5 LAB MCH 26.0-34.0 pg MCH Normal 31.6 LAB MCHC 32.0-36.0 % MCHC Normal 35.3 LAB RDW 11.5-14.5 % RDW Normal 12.5 LAB PLT 140-440 10*3/uL Platelet Normal 271 LAB MPV 7.4-10.4 fL MPV Normal 9.5 LAB GRAN% 40.0-80.0 % Granulocytes Normal 72.6 LAB LYMP% 20.0-40.0 % Low Lymphocytes 19.9 LAB MONO% 2.0-10.0 % Monocytes Normal 6.8 LAB EOS% 1.0-6.0 % Low Eosinophils 0.5 LAB BAS% 0.0-2.0 % Basophils Normal 0.2 LAB ANC 1.8-7.0 10*3/uL Abs High Neutrophile Cnt 7.2 LAB ALC 1.0-4.3 10*3/uL Abs Lymph Cnt Normal 2.0 LAB AMC 0.0-0.8 10*3/uL Abs Monocyte Normal Cnt 0.7 LAB AEC 0.0-0.5 10*3/uL Abs Eosin Cnt Normal 0.0 LAB ABC 0.0-0.2 10*3/uL Abs Baso Cnt Normal 0.0 Performed By: #### HEMDF, SAL33, CMP3, ACET4, ETOH4 #### [facility] [address] [place] [address] SALICYLATES Collected: 04/22/2018 Status: F Source: DropMat 2:12 PM SYSTEM REPOSITORY TYPE CODE TESTS RESULT OUT OF RANGE REFERENCE UNITS LAB SAL3 0.0-20.0 mg/dL Salicylates Normal < 1.0 Performed By: #### HEMDF, SAL33, CMP3, ACET4, ETOH4 #### [facility] [address] [place] [address] COMP METABOLIC PANEL Collected: 04/22/2018 Status: F Source: DropMat 2:12 PM SYSTEM REPOSITORY TYPE CODE TESTS RESULT OUT OF RANGE REFERENCE UNITS LAB NA3 137-145 mmol/L Sodium Normal 142 LAB K3 3.5-5.1 mmol/L Normal Potassium 4.2 LAB CL3 98-107 mmol/L Chloride Normal 106 LAB CO23 22-30 mmol/L Carbon Normal Dioxide 28 LAB ANIN3 NA Anion Gap 9 LAB GLUC3 70-100 mg/dL High Glucose 103 LAB BUN3 7-20 mg/dL Urea Normal Nitrogen 16 LAB CRET3 0.52-1.25 mg/dL Normal Creatinine 0.57 LAB GF3BR >60 mL/min eGFR > 60.0 LAB GF3WR >60 mL/min eGFR OTHER > 60.0 Result Comment: Source- MDRD equation with creatinine calibration to IDMS(NKDEP) eGFR not recommended for drug dose adjustment LAB CA3 8.4-10.4 mg/dL Calcium Normal 10.2 LAB ALB3 3.5-5.0 g/dL Albumin, Serum Normal 4.8 LAB TP3 6.3-8.2 g/dL Total Protein Normal 8.0 LAB BILT3 0.2-1.3 mg/dL Normal Bilirubin,Total 0.5 LAB ALKP3 38-126 U/L Alkaline Normal Phosphatase 97 LAB ALT3 13-69 U/L ALT (SGPT) Normal 39 LAB AST3 15-46 U/L AST (SGOT) Normal 27 Performed By: #### HEMDF, SAL33, CMP3, ACET4, ETOH4 #### [facility] [address] [place] [address] ACETAMINOPHEN Collected: 04/22/2018 Status: F Source: DropMat 2:12 PM SYSTEM REPOSITORY TYPE CODE TESTS RESULT OUT OF REFERENCE UNITS RANGE LAB ACET3 10.0-30.0 ug/mL Acetaminophen Normal < 10.0 Performed By: #### HEMDF, SAL33, CMP3, ACET4, ETOH4 #### [facility] [address] [place] [address] ETHANOL SERUM/PLASMA Collected: 04/22/2018 Status: F Source: DropMat 2:12 PM SYSTEM REPOSITORY TYPE CODE TESTS RESULT OUT OF RANGE REFERENCE UNITS LAB ETOH3 0.000-0.010 g/dL Normal < 0.010 Ethanol-Seru m/Plasma Result Comment: NOTE: This result is for medical treatment only. Analysis performed using non-forensic procedures. Performed By: #### HEMDF, SAL33, CMP3, ACET4, ETOH4 #### [facility] [address] [place] [address] HCG,URINE QUAL Collected: 04/22/2018 Status: F Source: DropMat 2:12 PM SYSTEM REPOSITORY TYPE CODE TESTS RESULT OUT OF REFERENCE UNITS RANGE LAB HCGUR Negative NA Negative HCG,Urine Qual Result Comment: is the most common reason for HCG in urine, although choriocarcinoma, hydatidiform mole, and certain nontropho- blastic malignancies also result in detectable urinary HCG levels. Sensitivity = 20mIU/mL. Performed By: #### PAULA, UAMAC, DRGA4 #### [facility] [address] [place] [address] URINALYSIS,MACRO Collected: 04/22/2018 Status: F Source: DropMat 2:12 PM SYSTEM REPOSITORY TYPE CODE TESTS RESULT OUT OF REFERENCE UNITS RANGE LAB APPUR Clear NA Appearance CLEAR LAB COLUR Lt. Yellow NA Color YELLOW LAB USG 1.005-1.030 NA Specific Normal [place],Urine 1.016 LAB UPH 5.0-8.0 NA pH,Urine Normal 8.0 LAB ULUK Negative NA Leukocytes NEG LAB UNIT Negative NA Nitrites NEG LAB UPRO Negative mg/dL Total Protein,Urine NEG LAB UGLU Negative mg/dL Glucose,Urine NEG LAB UKET Negative mg/dL Ketone,Urine NEG LAB UURO 0-1 mg/dL Urobilinogen 0.2 LAB UBIL Negative NA Bilirubin,Ur NEG LAB UBLD Negative {RBC}/uL Occult Blood,Ur NEG Performed By: #### HCGUR, UAMAC, DRGA4 #### [facility] [address] [place] [address] DRUGS OF ABUSE Collected: 04/22/2018 Status: F Source: DropMat 2:12 PM SYSTEM REPOSITORY TYPE CODE TESTS RESULT OUT OF REFERENCE UNITS RANGE LAB AMP3 NA Amphetamines, Ur Negative LAB BARB3 NA Barbiturates, Ur Positive LAB BENZ3 NA Benzodiazepines, Positive Ur LAB COC3 NA Cocaine, Ur Negative LAB METH3 NA Methadone, Ur Negative LAB OPI3 NA Opiates, Ur Negative LAB OXY3 NA Oxycodone/Oxymorph Negative ine,Ur LAB PCP3 NA Phencyclidine (PCP), Ur Negative Result Comment: The expected value for all of the drugs listed above is Negative. The following drugs or drug groups have been screened for by Immunoassay at the following thresholds: Amphetamine class (1000 ng/mL), Barbiturates (200 ng/mL), Benzodiazepines (200 ng/mL), Cocaine (300 ng/mL), Methadone (300 ng/mL), Opiates (300 ng/mL), Oxycodone (100 ng/mL), and PCP (25 ng/mL). NOTE: These results are for medical treatment only. Analysis performed using non-forensic procedures. POSITIVE results are NOT confirmed by a more specific alternative method unless requested. If confirmation is needed, request confirmation under separate order. Performed By: #### HCGUR, UAMAC, DRGA4 #### [facility] [address] [facility] [address] [place] [address] ED PROVIDER NOTE Observed: 04/22/2018 Status: F Source: DropMat 12:59 PM SYSTEM REPOSITORY Triage Chief Complaint: Withdrawal (possible withdrawal from klonopin and percocet. hasn't had klonopin for last week. last percocet was last monday. unable to sleep, sweats, nausea . vomiting. ) and Addiction Problem NULATO: Liss Guzman is a 42 y.o. female that presents complaining of anxiety. The patient reports that she quits taking Klonopin and Percocet about one week ago. Since then she has had increasing issues and anxiety. Says she is unable to sleep at all. She has been having nausea, vomiting and decreased appetite. Patient says I am losing my rational thinking and I am afraid what I might do. Patient denies any current suicidal ideation or attempts. Denies any alcohol or other drug use. Denies any chest pain, palpitations or difficulty breathing. ROS: Positive and pertinent negatives as per HPI. All other systems were reviewed and are negative Past Medical History: Diagnosis Date ? Anxiety ? Opiate addiction (HCC) History reviewed. No pertinent surgical history. History reviewed. No pertinent family history. Social History Social History ? Marital status: Single Spouse name: N/A ? Number of children: N/A ? Years of education: N/A Occupational History ? Not on file. Social History Main Topics ? Smoking status: Current Every Day Smoker ? Smokeless tobacco: Never Used ? Alcohol use No ? Drug use: Yes Types: Opiates ? Sexual activity: Not on file Other Topics Concern ? Not on file Social History Narrative ? No narrative on file No current facility-administered medications for this encounter. Current Outpatient Prescriptions Medication Sig Dispense Refill ? DULoxetine (CYMBALTA) 60 MG extended release capsule Take 60 mg by mouth daily ? clonazePAM (KLONOPIN) 1 MG tablet Take 1 mg by mouth 3 times daily as needed.. Allergies Allergen Reactions ? Benadryl [Diphenhydramine] Other (See Comments) Anxiety worsens Nursing Notes Reviewed Physical Exam: ED Triage Vitals [04/22/18 1305] Enc Vitals Group BP (!) 166/91 Pulse 94 Resp 16 Temp 97.5 ?F (36.4 ?C) Temp Source Temporal SpO2 98 % Weight Height Head Circumference Peak Flow Pain Score Pain Loc Pain Edu? Excl. in GC? GENERAL APPEARANCE: Awake and alert. Cooperative. Patient does appear anxious EYES: Sclera anicteric. No conjunctival pallor. ENT: Tolerates saliva. No trismus. moist mucous membranes, no tongue fasciculation NECK: Supple. Trachea midline. CARDIO: Normal heart soundsSlightly tachycardic but regular rate and rhythm , normal S1, S2. No S3, S4, murmurs or rubs. Radial pulse 2+. LUNGS: Respirations unlabored. CTAB. ABDOMEN: Soft. Non-distended. Non-tender. EXTREMITIES: No acute deformities. SKIN: Warm and dry. No Rash. NEUROLOGICAL: Awake, alert, responding appropriately. pupils are equal and reactive to light bilaterally. No nystagmus. Equal strength in all extremities and full sensation intact throughout all extremities. No tremulousness PSYCHIATRIC: patient appears slightly agitated, she has slightly rapid speech and appears quite anxious. Intermittently tearful and crying I have reviewed and interpreted all of the currently available lab results from this visit (if applicable): Results for orders placed or performed during the hospital encounter of 04/22/18 CBC Auto Differential Result Value Ref Range WBC 10.0 3.6 - 10.7 10*3/uL RBC 4.51 3.80 - 5.20 10*6/uL Hemoglobin 14.2 11.7 - 16.0 g/dL Hematocrit 40.3 35.0 - 47.0 % MCV 89.5 79.0 - 98.0 fL MCH 31.6 26.0 - 34.0 pg MCHC 35.3 32.0 - 36.0 % RDW 12.5 11.5 - 14.5 % Platelets 271 140 - 440 10*3/uL MPV 9.5 7.4 - 10.4 fL Granulocytes % 72.6 40.0 - 80.0 % Lymphocyte % 19.9 (L) 20.0 - 40.0 % Monocytes 6.8 2.0 - 10.0 % Eosinophils 0.5 (L) 1.0 - 6.0 % Basophils 0.2 0.0 - 2.0 % Absolute Neut # 7.2 (H) 1.8 - 7.0 10*3/uL Absolute Lymph # 2.0 1.0 - 4.3 10*3/uL Absolute [place] # 0.7 0.0 - 0.8 10*3/uL Absolute Eos # 0.0 0.0 - 0.5 10*3/uL Absolute Baso # 0.0 0.0 - 0.2 10*3/uL Comprehensive Metabolic Panel Result Value Ref Range Sodium 142 137 - 145 mmol/L Potassium 4.2 3.5 - 5.1 mmol/L Chloride 106 98 - 107 mmol/L CO2 28 22 - 30 mmol/L Anion Gap 9 NA Glucose 103 (H) 70 - 100 mg/dL BUN 16 7 - 20 mg/dL CREATININE 0.57 0.52 - 1.25 mg/dL eGFR >60.0 >60 mL/min EGFR IF NonAfrican [place]andan >60.0 >60 mL/min Calcium 10.2 8.4 - 10.4 mg/dL Albumin,Serum 4.8 3.5 - 5.0 g/dL Total Protein 8.0 6.3 - 8.2 g/dL Total Bilirubin 0.5 0.2 - 1.3 mg/dL Alkaline Phosphatase 97 38 - 126 U/L ALT 39 13 - 69 U/L AST 27 15 - 46 U/L Urinalysis Result Value Ref Range Appearance CLEAR Clear NA Color, UA YELLOW Lt. Yellow NA Specific [place], Urine 1.016 1.005 - 1.030 NA pH, Urine 8.0 5.0 - 8.0 NA LEUKOCYTES, UA NEG Negative NA Nitrite, Urine NEG Negative NA Total Protein, Urine NEG Negative mg/dL Glucose, Ur NEG Negative mg/dL Ketones, Urine NEG Negative mg/dL Urobilinogen, Urine 0.2 0 - 1 mg/dL Bilirubin, Urine NEG Negative NA Occult Blood,Urine NEG Negative [RBC]/uL , Urine Result Value Ref Range HCG Urine Negative Negative NA Urine Drug Screen Result Value Ref Range Amphetamines, urine Negative NA Barbiturates, Ur Positive NA Benzodiazepine Ur Qual Positive NA Cocaine Metabolites, Ur Negative NA Methadone, Urine Negative NA Opiates, Urine Negative NA Oxycodone Screen, Ur Negative NA PCP, Urine Negative NA Acetaminophen Level Result Value Ref Range Acetaminophen Level <10.0 10.0 - 30.0 ug/mL Ethanol Result Value Ref Range Ethanol Lvl <0.010 0.000 - 0.010 g/dL Salicylate Result Value Ref Range Salicylate Lvl <1.0 0.0 - 20.0 mg/dL Radiographs (if obtained): No results found. Chart review shows recent radiographs: No results found. MDM: This is a 42 y.o. female that presents Complaints of anxiety, recently quit taking Percocet and Klonopin. Overall on exam I do not feel the patient clinically has signs of benzodiazepine withdrawal but she does exhibit extreme anxiety. She is telling me that she is losing her rational thinking and she is afraid what she might do. She says that she has been unable to care for herself at home, she has not been sleeping at all. I performed basic baseline psychiatric screening labs here. He showed a positive benzodiazepine and barbiturates but otherwise were within normal limits due to my concerns the patient is unable to care for herself and seems to be losing rational thinking, and can I contacted [facility]. They agreed to admit the patient to their service. I did fill out a pink slip expressing my concerns on the patient. The patient is agreeable with this plan and is happy to go to [facility]. Clinical Impression: 1. Anxiety state 2. Withdrawal from sedative, hypnotic, or anxiolytic drug (HCC) Disposition referral (if applicable): No follow-up provider specified. Comment: Please note this report has been produced using speech recognition software and may contain errors related to that system including errors in grammar, punctuation, and spelling, as well as words and phrases that may be inappropriate. If there are any questions or concerns please feel free to contact the dictating provider for clarification. Vance Cisneros MD 04/22/18 1917 DISCHARGE SUMMARY Observed: 04/20/2018 Status: F Source: [place] 1:59 PM [facility] REPOSITORY [facility] Medical Records Department [address] [place] [address] Discharge Summary 04/20/18 0854 MR#: [id number] Acct: [id number] Name: LISS GUZMAN Rep #: [id number] : 1975 42 From: Olimpia Borjas MD PCP: Chavez Young DO Status: ADM IN Y [place] [facility] Discharge Date and Diagnosis Date of Admission: 04/18/18 Date of Discharge: 04/20/18 - Primary Discharge Diagnosis Acute barbiturates withdrawal - Secondary Discharge Diagnosis Chronic Problems Tobacco use (Chronic) Anxiety and depression (Chronic) GERD Hospital Course and Treatment None Operations: None Procedures: None Summary of Care Provided: The patient is a 42 year old F with past medical history of anxiety/depression: Polysubstance use, nicotine dependence, reported opiate and benzodiazepine use disorder who presented on 04/18/18 with acute opiate and benzodiazepine withdrawals with abdominal pain, cramping, generalized body aches and pains as well as rhinorrhea. Patient had expressed interest in obtaining a clean status. She had been taking her boyfriend's Percocet with his consent. 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 She is reportedly on suspension for more than 2 reported incidents of concern when she is taking a patient or family members narcotic and benzodiazepine. She reports that she ran out of Percocet and Klonopin after these recent instances. She is on suspension until she takes a drug test. Patient was admitted for withdrawal symptoms but urine drug screen was positive only for barbiturates with no benzodiazepine or opiates. There was a concern for malingering and misuse of prescribed Klonopin with at least possibility of selling. Discussed with the patient's primary care doctor, Dr. Chavez Young who has been filling patient's benzodiazepines. Patient was recently given 270 pills of benzodiazepine because she had told the primary care doctor that she needs to get her medications through the mail order. Discussed with [facility] staff, that we do not think the patient is actively withdrawing as urine tox was negative for benzodiazepines or opiate. She was subsequently discharged. Outpatient referrals were given to her for outpatient drug rehab programs to follow-up with as well as 180. Subjective: Patient was seen and examined day of discharge. She denies any new complaints except for some irritation of the eyes. Denies any diarrhea or nausea or vomiting. No acute events overnight. Objective: General: Alert, Oriented x3, Cooperative, No apparent distress HEENT: Atraumatic, PERRLA, EOMI, Normocephalic Oral: Moist Mucosa Neck: Supple, No JVD, Negative Carotid Bruits Lungs: Clear to auscultation, Normal air movement Cardiovascular: Regular rate, Regular Rhythm, Normal S1, Normal S2, No murmurs Abdomen: Bowel Sounds Present, Soft, Non Tender, Non-Distended, No Hepato-splenomegaly Extremities: No edema, Capillary Refill Less than 3 Seconds Skin: No rashes, No breakdown Musculoskeletal: No Tenderness to Palpation of Joints or Extremities Neurological: Cranial nerves II-XII grossly intact, Neuro grossly intact Psych/Mental Status: Normal Affect, Appropriate - Physical Exam Vital Signs Temp Pulse Resp BP Pulse Ox 98.9 F 75 16 107/63 93 04/20/18 07:00 04/20/18 07:00 04/20/18 07:00 04/20/18 07:00 04/19/18 14:03 Oxygen Delivery Method Room Air Weight: 70.5 kg Body Mass Index (BMI) 23.6 Intake and Output for Last 24 Hours Intake Total 536 / 536 1651 / 1651 400 / 400 Balance 536 / 536 1651 / 1651 400 / 400 Laboratory Tests Past 24 Hrs Sodium 144 Potassium 4.0 Chloride 108 H Carbon Dioxide 31.0 Discharge Diet: No Restrictions Discharge Activity: Return to Normal Activity Home Medications: Medications to take at Discharge RX: Duloxetine Hcl [Cymbalta] 30 mg PO BID 04/18/18 RX: Nicotine [Nicoderm Cq] 21 mg TRANSDERM. DAILY #30 patch 04/20/18 Following Prescrptions Were Given to Patient: RX: Nicotine [Nicoderm Cq] 21 mg TRANSDERM. DAILY #30 patch Primary Care Physician: Chavez Young DO [Primary Care Provider] - Please follow up with your Primary Care Physician in: within 2 weeks Disposition: Home Minutes spent on discharge:: 45 - Discussing discharge follow- up with primary care doctor as well as updating him on inpatient care Patient Condition:: Stable Medical Necessity - Tobacco Use Smoking Status: Current every day smoker Tobacco Use: Cigarettes Meaningful Use Info Meaningful Use Diagnoses (Choose all that apply): None applicable Code Visit Inpatient E AND M: 94915 Disch Hosp 04/20/18 1359 <Electronically signed by Olimpia Borjas MD> Date Olimpia Borjas MD Cosigner Signature (if applicable): Date CC: Olimpia Borjas MD; Chavez Young DO Signed DISCHARGE INSTRUCTION Observed: 04/20/2018 Status: F Source: [place] 8:54 [facility] REPOSITORY [facility] Medical Records Department [address] [place] [address] Instructions for Home/Discharge Instructions 04/20/18 0852 MR#: [id number] Acct: [id number] Name: LISS GUZMAN Rep #: [id number] : 1975 42 From: Olimpia Borjas MD PCP: Chavez Young DO Status: ADM IN - Discharge Diagnoses Reason(s) for Visit for Discharge Instructions: Nausea, muscle aches You will use the following diet at home:: Regular Your food should be the consistency of: Regular Your liquids should be the consistency of: Regular/Thin Discharge Activity: Return to Normal Activity Additional Instructions: Follow-up with the outpatient drug rehab programs. Allergies/Adverse Reactions: Allergies diphenhydramine [From Benadryl] Adverse Reaction (Verified 04/18/18 14:03) Other anxiety Medications to take at Discharge Duloxetine Hcl [Cymbalta] 30 mg PO BID 04/18/18 Nicotine [Nicoderm Cq] 21 mg TRANSDERM. DAILY #30 patch 04/20/18 The following prescriptions were given: Nicotine [Nicoderm Cq] 21 mg TRANSDERM. DAILY #30 patch Primary Care Physician: Chavez Young DO [Primary Care Provider] - Test Results: Test results from this visit will be discussed in further detail at your follow-up appointment, if applicable. Proposed Discharge Date: 04/20/18 04/20/1854 <Electronically signed by Olimpia Borjas MD> Date Olimpia Borjas MD CC: Chavez Young DO BASIC METABOLIC Collected: 04/19/2018 Status: F Source: [facility] PROFILE (BMP) 9:48 AM [facility] REPOSITORY TYPE CODE TESTS RESULT OUT OF RANGE REFERENCE UNITS LAB L501.0100 74-106 mg/dL Normal GLU 88 Result Comment: Please note revised GLUCOSE reference range effective 2017. LAB L501.1000 7-18 mg/dL Normal BUN 14 LAB L501.1100 0.55-1.02 mg/dL Normal CREAT,SERUM 0.79 Result Comment: The validity of the calculated GFR AND GFRAA in patients over 70 years has not been determined. Clinical correlation is essential. LAB L501.1110 >60 mL/min Normal EST GFR 84 Result Comment: Non- GFR Calc LAB L501.1115 >60 mL/min Normal EST GFR - AA 102 Result Comment: GFR Calc LAB L501.1255 ml/min Normal Estimated CRCL 92.63 LAB L501.1300 10-20 RATIO Normal BUN/CRE 17.7 LAB L501.2200 8.5-10 mg/dL Normal .1 CA 8.7 LAB L501.5300 136-14 mmol/L Normal 5 NA 144 LAB L501.5600 3.5-5. mmol/L Normal 1 K 4.0 LAB L501.5900 98-107 mmol/L High CL 108 LAB L501.6100 21.0-3 mmol/L Normal 2.0 CO2 31.0 LAB L501.6200 5-15 Normal GAP 5 Performed By: #### L500.2500 #### [facility] [address] [place], [address] HISTORY AND PHYSICAL Observed: 04/18/2018 Status: F Source: [place]LE EXAM 4:39 PM [facility] REPOSITORY [facility] Medical Records Department [address] [place] [address] History and Physical 04/18/18 1345 MR#: [id number] Acct: [id number] Name: LISS GUZMAN Rep #: [id number] : 1975 42 From: Barbara Silver PCP: Chavez Young DO Status: ADM IN Y Location: [facility] [place] WL220-3 ADDENDUM by Barbara Silver on 04/18/18 at 1639 Code Visit UDS w/ barbituates only. No BZD or opiates. Given reported timeline of intake and no findings on UDS concern for malingering versus possibly misuse of her prescribed Klonopin at least possibly selling. We will need to discuss in a.m. with [facility] given these concerns. For interim as discussed with PCP and with patient will continue treatment for withdrawal but as noted very suspicious although could have taken them earlier in the course then she had mentioned. 04/18/18 1639 <Electronically signed by Barbara Silver > Date Barbara Silver cc: Barbara Silver; Chavez Young DO * Signed Problem List (1) Opiate abuse, continuous Status: Acute (2) Benzodiazepine abuse, continuous Status: Acute (3) Tobacco use Status: Chronic (4) Anxiety and depression Status: Chronic History of Present Illness Date of Admission: 04/18/18 Chief Complaint: Acute BZD/opiate withdrawal The patient is a 42 y/o F w/ PMHx: Anxiety and Depression, Tobacco use, Opiate and BZD abuse ongoing who presents to the [facility] at [facility] on 04/18/18 w/ noted opiate and BZD withdrawal onset starting 04/17/18-04/18/18 following last dose BZD evening 04/15/18 and last dose percocet 04/17/18 evening with normal consumption history 4 mg daily klonopin and percocet 30 mg daily with abdominal pain/cramping, generalized body aches and pains, rhinorrhea, piloerection, fatigue, restless leg, sweating, yawning as well as agitation and tremors. Patient interested in attaining clean status. She notes that she has been taking her boyfriends percocets with his consent. He had an accident 2 months prior and has some extent of paralysis and she has been caring for him. He is not able to get his own medications and she notes she gives them to him and takes them as well. She was rx klonopin for anxiety 2 years prior and starting abusing her regimen this year. 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 She is currently on suspension secondary to at least 2 reported incidents of concern she has taken a patient or family members narcotics and BZD. She notes she is on suspension until she has a drug test. She states that she did not take these patients/family members medications. She openly admits that she ran out of percocet and klonopin after these most recent doses. 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 Lives: - - She notes recently she had her boyfriend move out. She had been taking care of him after a recent accident which left him paralyzed. Smoking Status: Current every day smoker - 1 ppd. Tobacco Use: Cigarettes Alcohol: None Drugs: - - Percocets and BZD abuse w/ consumption history 4 mg daily klonopin and percocet 30 mg daily - *Family History Maternal History Items: Diabetes Paternal History Items: Diabetes Review of Systems Constitutional: Reports: Anorexia, Malaise, Weakness, Fatigue. Denies: Chills, Fever, Weight Change HEENT: Reports: Sore Throat. Denies: Head Aches, Sinus Congestion, Sinus Drainage Cardiovascular: Denies: Chest Pain, Palpitations Respiratory: Denies: Cough, Shortness of breath at rest, Sputum production Gastrointestinal: Reports: Abdominal Pain, Diarrhea, Nausea, Vomiting Genitourinary: Denies: Dysuria Musculoskeletal: Reports: Joint Pain, Muscle pain. Denies: Joint Tenderness Skin: Denies: Rash, Wounds Neurological: Reports: Tremor. Denies: Focal weakness, Numbness, Tingling Psychiatric: Reports: Anxiety, Depression. Denies: Homicidal Ideations, Suicidal Ideations Hematologic/ Lymphatic: Denies: Easy Bruising, Easy Bleeding VTE Information - Inpt Only VTE Present on Admission: No VTE Mechan Device Prophylaxis: SCD's VTE Pharm Prophylaxis ordered?: No Reason prophylaxis not ordered:: Treatment Not Indicated Subjective: Seated upright in the chair, notes feeling poorly, yawning, sweating, restless, anxious. Objective: Physical Examination: General: awake, alert, oriented x 3 and cooperative, seated upright, restless, anxious, yawning, sweating. Skin: normal color, turgor, no icterus, cyanosis. HEENT: AT/NC, EOMI, PERRLA, moderately dry MM, no carotid bruits or JVD noted. Lungs: CTA bilaterally, moderate effort, mild decrease BL bases, no rales, ronchi or wheezing. Heart: Regular rate and rhythm; no gallop, rub audible. Abdomen: soft, mild generalized discomfort, ND, hyperactive BS, no HSM. Extremities: no cyanosis, clubbing, or edema. Neurological: patient awake, alert, oriented x 3; cognitive function intact; pupils equally reactive to light and accomodation; cranial nerves II-XII grossly normal, moving all 4 extremities, no focal deficits, strength mildly to moderately globally secondary to acute presentation, agitated, no visible tremors. Psychiatric: affect appears mildly agitated, anxious, no acute evidence of depressive feelings. Assessment/Plan All Active Problems Opiate abuse, continuous (Acute) Benzodiazepine abuse, continuous (Acute) The patient is a 42 y/o F w/ PMHx: Anxiety and Depression, Tobacco use, Opiate and BZD abuse ongoing who presents to the [facility] at [facility] on 04/18/18 w/ noted acute opiate and BZD withdrawal onset starting 04/17/18-04/18/18 following last dose BZD evening 04/15/18 and last dose percocet 04/17/18 evening with normal consumption history 4 mg daily klonopin and percocet 30 mg daily. (1) Acute Opiate and BZD Withdrawal: Will admit to [facility], obtain routine labs including CBC, CMP, urine for drug screen, serum lipase, initiate and continue on [facility] service protocol with tapering course of Subutex and Librium with cautious to sedation, as needed Seroquel, Librium, Sinemet, Catapres, Bentyl, Vistaril, IV fluids, IV antiemetics, Tylenol as needed for pain. Once patient clinically improved and completion of taper nearing will plan [facility] assistance for transition to next level of rehabilitation care. Discussed patient status per her permission with her PCP Dr. Chavez Young and he is willing to continue to treat her for BZD withdrawal with BZD taper regimen. Intention for hospitalist to contact him on day of patient discharge to arrange pharmacy rx for taper initiation to continue. (2) Anxiety and Depression: Will continue patient home cymbalta 60 mg daily regimen, does have notable room for increase as needed. (3) Tobacco Abuse: Encouraged cessation, inpatient consultation per RT, NR if desired. (4) GERD: Famotidine. (5) DVT Prophylaxis: SOLO, low risk, ambulation. Code Visit Inpatient E AND M: [id number] Init Hosp L3 04/18/18 1409 <Electronically signed by Barbara Silver > Date Barbara Silver Cosigner Signature: Date (if applicable) CC: Barbara Silver; Chavez Young DO Signed URINE DRUG SCREEN Collected: 04/18/2018 Status: F Source: [place] (VISTA) 3:15 PM [facility] REPOSITORY TYPE CODE TESTS RESULT OUT OF RANGE REFERENCE UNITS LAB L505.0075 TO BE Normal CONFIRMED Result Comment: CONFIRMATORY TESTING FOR ALL POSITIVE URINE DRUG SCREEN RESULTS WILL ONLY BE SENT OUT UPON PHYSICIAN ORDER. VISTA Urine Drug Screen methods provide only preliminary analytical test results. A more specific alternate chemical method must be used in order to obtain a confirmed analytical result. Gas chromatography/mass spectrometery (GC/MS) is the preferred confirmatory method. Clinical consideration and professional judgement should be applied to any drug of abuse test result, particularly when preliminary positive results are used. URINE TCA TESTING MUST BE ORDERED SEPARATELY. USE TEST MNEMONIC: [facility] LAB L505.5005 VISTA UDS PH 5 Normal LAB L505.5015 <1000 ng/mL AMPHETAMINES Normal NEGATIVE LAB L505.5025 < 200 High ng/mL BARBITIURATES POSITIVE LAB L505.5035 < 200 ng/mL BENZODIAZIPINE Normal NEGATIVE LAB L505.5045 < 300 ng/mL COCAINE Normal NEGATIVE LAB L505.5055 < 500 ng/mL ECSTACY Normal NEGATIVE LAB L505.5065 < 300 ng/mL METHADONE Normal NEGATIVE LAB L505.5075 < 300 ng/mL OPIATES Normal NEGATIVE LAB L505.5085 < 25 ng/mL PCP Normal NEGATIVE LAB L505.5095 < 50 ng/mL THC Normal NEGATIVE Performed By: #### L505.5000 #### [facility] [address] [place], [address] CBC W/DIFF, AUTOMATED Collected: 04/18/2018 Status: F Source: [place] 2:15 PM [facility] REPOSITORY TYPE CODE TESTS RESULT OUT OF RANGE REFERENCE UNITS LAB L100.1000 4.4-11.0 K/mm3 High WBC 11.4 LAB L100.1200 4.2-5.4 M/mm3 Normal RBC 4.43 LAB L100.1300 12.0-15.0 g/dl Normal HGB 13.7 LAB L100.1400 37-47 % Normal HCT 40.5 LAB L100.1500 81-99 fL Normal MCV 91.4 LAB L100.1600 27.0-32.0 pg Normal MCH 30.9 LAB L100.1700 32-36 g/gl Normal MCHC 33.8 LAB L100.1810 11.6-14.6 % Normal RDW CV 12.2 LAB L100.1820 35.1-43.9 fl Normal RDW SD 40.8 LAB L100.1900 150-450 K/mm3 Normal PLT 309 LAB L100.2000 6.2-12.0 fl Normal MPV 10.7 LAB L100.2100 47-70 % Normal NEUT% 63.2 LAB L100.2200 19-41 % Normal LY% 27.8 LAB L100.2300 0-10 % Normal MONO% 8.1 LAB L100.2400 0-5 % Normal EO% 0.4 LAB L100.2500 0-1 % Normal BASO% 0.2 LAB L100.2550 0.0-0.9 % Normal IM GRAN % 0.300 Result Comment: IG% - Immature Granulocytes (promyelocytes, myelocytes and metamyelocytes) > 1% indicates that a LEFT SHIFT is Present. LAB L100.2620 2.0-7.7 X10 3/uL Normal Absolute Neut 7.2 LAB L100.2720 0.83-4.51 X10 3/ul Normal Absolute Lymph 3.18 Performed By: #### L100.0100 #### [facility] [address] [place], [address] COMPREHENSIVE METABOLIC Collected: 04/18/2018 Status: F Source: [facility] 2:15 PM [facility] REPOSITORY TYPE CODE TESTS RESULT OUT OF RANGE REFERENCE UNITS LAB L501.0100 74-106 mg/dL Normal GLU 92 Result Comment: Please note revised GLUCOSE reference range effective 2017. LAB L501.1000 7-18 mg/dL Normal BUN 10 LAB L501.1100 0.55-1.02 mg/dL Normal CREAT,SERUM 0.66 Result Comment: The validity of the calculated GFR AND GFRAA in patients over 70 years has not been determined. Clinical correlation is essential. LAB L501.1110 >60 mL/min Normal EST GFR 105 Result Comment: Non- GFR Calc LAB L501.1115 >60 mL/min Normal EST GFR - AA 127 Result Comment: GFR Calc LAB L501.1300 10-20 RATIO Normal BUN/CRE 15.3 LAB L501.1500 6.4-8.2 g/dL High T PROT 8.4 LAB L501.1800 3.2-5.0 g/dL Normal ALB 4.3 LAB L501.1950 2.2-4.2 g/dL Normal GLOB 4.1 LAB L501.2000 0.9-2.4 RATIO Normal A/G 1.0 LAB L501.2200 8.5-10.1 mg/dL CA Normal 9.6 LAB L501.4100 15-37 U/L Normal AST 23 LAB L501.4305 45-117 U/L High ALK P 120 LAB L501.4405 13-56 U/L Normal ALT 29 LAB L501.4600 0.20-1.00 mg/dL T Normal BILI 0.40 LAB L501.5300 136-145 mmol/L NA Normal 142 LAB L501.5600 3.5-5.1 mmol/L Low K 3.4 LAB L501.5900 98-107 mmol/L High CL 108 LAB L501.6100 21.0-32.0 mmol/L Normal CO2 25.0 LAB L501.6200 5-15 Normal GAP 9 Performed By: #### L500.4050, L501.2450 #### [facility] [address] [place], [place], [id number] LIPASE Collected: 04/18/2018 Status: F Source: [place] 2:15 PM [facility] REPOSITORY TYPE CODE TESTS RESULT OUT OF RANGE REFERENCE UNITS LAB L501.2450 73-393 U/L Normal LIPASE 135 Performed By: #### L500.4050, L501.2450 #### [facility] [address] [place], [place], [id number] ALCOHOL, BLOOD Collected: 04/18/2018 Status: F Source: [place] (MEDICAL)-SERUM 2:15 PM [facility] REPOSITORY TYPE CODE TESTS RESULT OUT OF RANGE REFERENCE UNITS LAB L501.9100 mg/dL Normal SERUM < 3.0 ETOH Result Comment: The serum:whole blood ethanol ratio is approximately 1.14 and varies slightly with hematocrit. Medical Alcohol reference interval and critical value in non-tolerant individuals; 50 - 100 Impairment 100 Intoxication 100 - 250 Severe Poisoning 250 - 400 Deep/possible fatal coma Performed By: #### L501.9100 #### [facility] [address] [place], [address] CBC W/DIFF, AUTOMATED Collected: 04/18/2018 Status: F Source: [place] 2:05 PM [facility] REPOSITORY TYPE CODE TESTS RESULT OUT OF RANGE REFERENCE UNITS LAB L100.1000 4.4-11.0 K/mm3 High WBC 11.4 LAB L100.1200 4.2-5.4 M/mm3 Normal RBC 4.43 LAB L100.1300 12.0-15.0 g/dl Normal HGB 13.7 LAB L100.1400 37-47 % Normal HCT 40.5 LAB L100.1500 81-99 fL Normal MCV 91.4 LAB L100.1600 27.0-32.0 pg Normal MCH 30.9 LAB L100.1700 32-36 g/gl Normal MCHC 33.8 LAB L100.1810 11.6-14.6 % Normal RDW CV 12.2 LAB L100.1820 35.1-43.9 fl Normal RDW SD 40.8 LAB L100.1900 150-450 K/mm3 Normal PLT 309 LAB L100.2000 6.2-12.0 fl Normal MPV 10.7 LAB L100.2100 47-70 % Normal NEUT% 63.2 LAB L100.2200 19-41 % Normal LY% 27.8 LAB L100.2300 0-10 % Normal MONO% 8.1 LAB L100.2400 0-5 % Normal EO% 0.4 LAB L100.2500 0-1 % Normal BASO% 0.2 LAB L100.2550 0.0-0.9 % Normal IM GRAN % 0.300 Result Comment: IG% - Immature Granulocytes (promyelocytes, myelocytes and metamyelocytes) > 1% indicates that a LEFT SHIFT is Present. LAB L100.2620 2.0-7.7 X10 3/uL Normal Absolute Neut 7.2 LAB L100.2720 0.83-4.51 X10 3/ul Normal Absolute Lymph 3.18 Performed By: #### L100.0100 #### [facility] [address] [place], [address] DISCH.SUM Observed: 11/24/2017 Status: UNK Source: [facility] 2:56 PM [facility] [place] REPOSITORY [facility] Patient Name: LISS GUZMAN [address] Date of : [address] [place] [address] Unit Number: [id number] Discharge Summary Patient Status: ADM IN Attending Doctor: Segundo Green MD Service Date: 11/24/17 1456 Discharge Summary Admit Date Admission Date Time: 11/23/17 0236 Anticipated Discharge Date 11/24/17 Final Dx/Problem List 1. ACUTE RIGHT LOWER ABDOMINAL PAIN 2. CIRCUMFERENTIAL SMALL BOWEL, TERMINAL ILEUM, CECAL-POSSIBLE CROHN'S/IBD 3. Fatigue 4. Nausea 5. Fibromyalgia 6. Polyarthritis 7. Sjogrens syndrome 8. Scleroderma 9. Migraines Chief Complaint/HPI Abdominal pain Reason for Admission Intractable abdominal pain, nausea, vomiting Operations/Procedures Colonoscopy done on 11/24/2017 by [facility] Course Mrs. Guzman is a 41-year-old pleasant female with past medical history significant for migraines, autoimmune disorder of polyarthritis, Sjogren's, scleroderma, follows up with a nutritional yeast supervisor at [facility], came into the hospital with complaints of intractable abdominal pain, nausea, vomiting. Patient has been having abdominal pain since last 3 months, on and off. Patient works at a f[employer]. Patient was admitted to the hospital, GI consulted. CT abdomen was done which showed evidence of possible appendicitis. It was ruled out by surgery and says that patient is not a surgical candidate. GI took the patient for colonoscopy with a suspicion of Crohn's disease. Found couple of ulcers at the terminal ileum, biopsies obtained. Patient needs to follow up with the path report as outpatient at GI office. Patient was started on pain medications. Her abdominal pain was better. She was started on Cipro and Flagyl for 2 weeks. Dietitian was consulted to help as patient wanted to know about her dietary restrictions. Vital Signs Vital Signs (Last) Result Date Time Pulse Ox 100 11/24 1407 B/P 111/69 11/24 1407 Pulse 66 11/24 1407 Resp 20 11/24 1407 O2 Flow Rate 4L 11/24 1227 Temp 98.2 11/24 0649 Pertinent Physical Findings Gen.-patient is sitting comfortably in the bed not in acute distress HEENT-PERRLA EOMI moist mucous membranes CVS-S1-S2 present RS-air entry equal bilaterally Abdomen-soft tenderness noted in the right lower quadrant and right lumbar area, better than yesterday.. Nondistended. bowel sounds present Extremities-no edema clubbing FROG SHAKER-alert oriented 3 no gross focal neurologic deficits noted. Consults Gastroenterology Prescriptions Continue taking these medications: clonazePAM* (Klonopin Tab*) 1 MG TABLET 1 MILLIGRAM ORAL 3 TIMES DAILY NEEDED as needed for ANXIETY DULoxetine HCL* (Cymbalta 20MG Cap*) 20 MG CAPSULE. 30 MILLIGRAM ORAL 2 TIMES DAILY Gabapentin* (Neurontin Tab*) 800 MG TABLET 800 MILLIGRAM ORAL 3 TIMES DAILY NEEDED as needed for RESTLESSNESS Start taking the following new medications: Ciprofloxacin (Cipro Tab) 500 MG UDTAB 500 MILLIGRAM ORAL 2 TIMES DAILY Days = 14 Qty = 27 No Refills metroNIDAZOLE* (Flagyl 250MG Tab*) 250 MG TABLET 500 MILLIGRAM ORAL EVERY 8 HOURS Days = 14 Qty = 27 No Refills OxyCODONE* (Oxyir 5MG Tab*) 5 MG TABLET 2.5 MILLIGRAM ORAL EVERY 6 HOURS NEEDED as needed for Pain scale 1-5 Days = 14 Qty = 14 No Refills Pantoprazole Sodium (Protonix) 40 MG TABLET. 40 MILLIGRAM ORAL ONCE DAILY BEFORE MEALS Days = 30 Qty = 30 No Refills Referrals Ordered Referrals Gastroenterology In Two Weeks For Providers: Humphrey Davidson MD [address] [facility] [place] [address] Family Medicine In One Month For Providers: Sean Young MD [address] [address] Condition: Stable Disposition Home CC: Sean Young MD Disclaimer This dictation was created using voice recognition software. Phonetic and/or minor grammatical errors may exist. eSign Date and Time Linda Ramos MD Verified/Reviewed by 11/24/17 1557 SURG Observed: 11/24/2017 Status: F Source: [facility] 2:15 PM [facility] Patient: LISS GUZMAN SPECIMEN: [id number] Collection Date: 11/24/171414 Received: 11/24/17 Status: SATNAM Dean DrLili: Segundo Green MD Ph# Othr. Dr.: No Family Physician given Othr. Dr.: Humphrey Davidson MD Material for Examination: A TERMINAL ILEUM SMALL BOWEL BX, R/O IBD B RANDOM COLON BX, R/O IBD PRE-OP DIAGNOSIS: ABDOMINAL PAIN POST-OP DIAGNOSIS: SAME SURGICAL PROCEDURE: COLONOSCOPY DIAGNOSIS A. Terminal ileum small bowel biopsy (rule out IBD): Predominantly, multiple fragments of colonic mucosa, no pathological diagnosis. Minute fragment of small bowel mucosa, no pathological diagnosis. No active colitis/ileitis identified. B. Random colon biopsy (rule out IBD): Fragments of colonic mucosa, no pathological diagnosis. Absence of active colitis. GROSS DESCRIPTION A. The specimen is received in formalin and labeled with the patient's name, ID and designated terminal ileum, small bowel biopsy, rule out IBD, are multiple fragments of reilly- red friable tissue that is strained into a biopsy bag and has an aggregate measurement of 1.0 x 0.2 x 0.1 cm. Entirely submitted in cassette A1. B. The specimen is received in formalin and labeled with the patient's name, ID and designated random colon biopsy, R/O irritable bowel disease, are multiple fragments of reilly somewhat friable tissue that is strained into a biopsy bag and has an aggregate measurement of 1.0 x 0.6 x 0.1 cm. Entirely submitted in cassette B1. MICROSCOPIC DESCRIPTION 4 Meenu stained sections examined. COPIES TO: No Family Physician given Segundo Green MD, Zuo-Liang MD Signed Verified/Reviewed by ARIS PEREZ M.D. 11/27/17 This dictation was created using voice recognition software. Phonetic and/or minor grammatical errors may exist. [facility] NAME: LISS GUZMAN Pathology and Laboratory Medicine UNIT#: [id number] LOC: [facility] Diesel Fitter Mechanic: Louise Grier M.D. [id number] ROOM/BED: [place] [address] [employer] [facility] : 73 AGE/SEX: 41/F ORD.Segundo Antonio MD END OF REPORT CBC W/DIFF Collected: 11/24/2017 Status: F Source: [facility] 5:17 AM [facility] [place] REPOSIT[facility] Order Comment: [place]: TYPE CODE TESTS RESULT OUT OF RANGE REFERENCE UNITS LAB L200.96979 4.5-11.0 K/CU MM WBC Normal 8.6 LAB L200.84074 3.90-5.30 M/CU MM Low RBC 3.02 LAB L200.60628 11.5-15.5 G/DL Low HGB 9.5 LAB L200.17736 35.0-47.0 % Low HCT 28.0 LAB L200.35715 80.0-99.0 fl MCV Normal 92.7 LAB L200.13984 32.0-36.0 GM/DL MCHC Normal 33.9 LAB L200.22346 11-14.5 RDW Normal 12.2 LAB L200.86363 9.4-12.4 MPV Normal 10.5 LAB L200.14727 150-450 K/CU MM PLT Normal 167 LAB L200.51471 45-75 % NEUTROPHILS Normal % 50.3 LAB L200.88959 Less than 2 % IMMATURE Normal GRAN % 0.4 LAB L200.17985 20-40 % High LYMPH % 40.2 LAB L200.08236 2-10 % MONOCYTE % Normal 7.8 LAB L200.36081 0-5 % EOSINOPHIL Normal % 1.1 LAB L200.88647 0-2 % BASOPHIL % Normal 0.2 LAB L200.45583 2.0-8.3 K/CU MM NEUTROPHIL Normal ABS 4.30 LAB L200.55456 Less than 2 K/CU MM IMMATR GRAN Normal ABS 0.00 LAB L200.55912 0.9-4.4 K/CU MM LYMPH ABS Normal 3.40 LAB L200.25361 0.1-1.1 K/CU MM MONO ABS Normal 0.70 LAB L200.32959 0-0.5 K/CU MM EOS ABS Normal 0.10 LAB L200.02278 0-0.2 K/CU MM BASO ABS Normal 0.00 LAB L200.62949 Less than 1 % NRBC Normal 0.0 Performed By: #### L200.41758 #### [facility] [address] [place] [address] BMP Collected: 11/24/2017 Status: F Source: [facility] 5:17 AM [facility] Order Comment: [place]: TYPE CODE TESTS RESULT OUT OF RANGE REFERENCE UNITS LAB L500.98502 136-145 MMOL/L High NA 147 LAB L500.25686 3.5-5.1 MMOL/L Normal K 3.5 LAB L500.65371 98-107 MMOL/L High CL 112 LAB L500.17945 21-32 MMOL/L Normal CO2 26 LAB L500.19832 5-16 MMOL/L Normal AGAP 8 LAB L500.03017 70-100 MG/DL Normal GLU 91 Result Comment: 70-100- Normal Fasting; 100-125 Impaired Fasting; greater than 126 on more than one result- Diabetes. ADA guidelines. Results may be falsely elevated after the administration of Sulfapyridine. Results may be falsely depressed after the administration of Sulfasalazine. LAB L500.70378 7-26 MG/DL Normal BUN 10 LAB L500.74383 0.510-0.950 MG/DL Normal CREAT 0.682 Result Comment: Patients receiving either N-Acetylcysteine (NAC) or Metamizole prior to venipuncture, may have falsely depressed results. LAB L500.74509 15-24 Normal BUN/CREA 15 LAB L500.12022 8.5-10.1 MG/DL Low CALCIUM TOTAL 8.0 Performed By: #### L500.19566, L500.58968 #### [facility] [address] [place] [address] GFR EST Collected: 11/24/2017 Status: F Source: [facility] 5:17 AM [facility] [place] REPOSIT[facility] Order Comment: [place]: M TYPE CODE TESTS RESULT OUT OF RANGE REFERENCE UNITS LAB L500.96140 ML/MIN Normal IF non-AFR Greater than AMER 60 LAB L500.11398 ML/MIN Normal IF Greater than AMER 60 Performed By: #### L500.94649, L500.33574 #### [facility] [address] [place] [address] WSR/MOD Collected: 11/23/2017 Status: F Source: [facility] 6:21 AM [facility] Order Comment: [place]: M TYPE CODE TESTS RESULT OUT OF RANGE REFERENCE UNITS LAB L200.86625 0-20 MM/HR Normal WSR/MOD 16 Performed By: #### L200.00362 #### [facility] [address] [place] [address] PHOS Collected: 11/23/2017 Status: F Source: [facility] 6:21 AM [facility] [place] Order Comment: [place]: M TYPE CODE TESTS RESULT OUT OF RANGE REFERENCE UNITS LAB L500.49611 2.5-4.9 MG/DL Normal PHOS 3.0 Performed By: #### L500.86193, L500.73729, L500.45581, L500.97410, L550.94666 #### [facility] [address] [place] [address] IRON Collected: 11/23/2017 Status: F Source: [facility] 6:21 AM [facility] [place] RE[facility] Order Comment: [place]: M TYPE CODE TESTS RESULT OUT OF RANGE REFERENCE UNITS LAB L500.33663 50-170 UG/DL Normal IRON 59 Result Comment: Patients treated with metal-binding drugs (e.g.deferoxamine) may have depressed iron values, as chelated iron may not properly react in the Siemens iron assay. Performed By: #### L500.10361, L500.46386, L500.59327, L500.75234, L550.47976 #### [facility] [facility] [address] [place] [address] B12 Collected: 11/23/2017 Status: F Source: [facility] 6:21 AM [facility] REPOSITORY Order Comment: [place]: M TYPE CODE TESTS RESULT OUT OF RANGE REFERENCE UNITS LAB L500.49024 [id number] PG/ML Normal B12 533.6 Performed By: #### L500.37417, L500.05965, L500.41494, L500.75466, L550.53196 #### [facility] [address] [place] [address] FOLIC ACID Collected: 11/23/2017 Status: F Source: [facility] 6:21 AM [facility] REPOSITORY Order Comment: [place]: M TYPE CODE TESTS RESULT OUT OF RANGE REFERENCE UNITS LAB L500.02870 >3.0 NG/ML Normal FOLIC 21.1 ACID Performed By: #### L500.41118, L500.83546, L500.42307, L500.02126, L550.88990 #### [facility] [address] [place] [address] CRP Collected: 11/23/2017 Status: F Source: [facility] 6:21 AM [facility] REPOSITORY Order Comment: [place]: M TYPE CODE TESTS RESULT OUT OF RANGE REFERENCE UNITS LAB L550.76990 0.00-0.32 MG/DL High CRP 1.06 Performed By: #### L500.91075, L500.01002, L500.55216, L500.54123, L550.79604 #### [facility] [address] [place] [address] HP.IMS.ADM Observed: 11/23/2017 Status: UNK Source: [facility] 3:43 AM [facility] REPOSITORY [facility] Patient Name: LISS GUZMAN [address] [facility] Date of : [address] [place] [address] Unit Number: [id number] Admission-HandP Patient Status: ADM IN Attending Doctor: Segundo Green MD Service Date: 11/23/17342 ZULY GTZ 11/23/17342: History of Present Illness Source of Information Patient, ED Provider, Medical Records Chief Complaint/Present Illness: Abdominal Pain Living Situation Home - Independent History of Present Illness Patient is a pleasant but unfortunate 41-year-old female with history of fibromyalgia, migraines, scleroderma, polyarthritis, Sjogren syndrome, and anxiety and depression who is followed by Dr. Young. Patient comes to [facility] ED tonight as a transfer from [facility]. She presented there for severe abdominal distention and abdominal pain with associated nausea, and had a noncontrast abdominal CT that showed possible appendicitis. She was transferred to [facility] for GI services and additional testing. She states that she has had ongoing diffuse abdominal pain for 3 months, but became more severe and more focused to the right lower quadrant today. She reports ongoing fatigue and malaise, nausea, diarrhea, and abdominal bloating. She also reports seeing some oral sores to the sides of her tongue and mouth she noticed yesterday. She is followed by nutritional yeast supervisor for her autoimmune conditions, and recently was on naltrexone, but is not at this time. She denies syncope, chest pain or shortness of breath, fever or chills, palpitations, hematuria, dysuria, melena, swelling to the lower extremities. She rates her abdominal pain at an 8/10, and reports that Percocet seems to work best for her. In ED, CT abdomen and pelvis with oral and IV contrast showed circumferential small bowel wall thickening in the right lower quadrant compatible with terminal ileitis, and the findings and the appendix are likely secondary to adjacent inflammatory change however primary appendicitis could not be excluded. On-call surgery was consulted by ED, and determined this was not a surgical appendicitis. Surgery recommended she be admitted to medicine and consult GI. She was given morphine IV, Zofran IV, and Solu-Medrol IV in ED. Hemoglobin 11.4, hematocrit 34.5. CMP unremarkable. She'll be admitted to inpatient MedSur with consults to GI and surgery. Past Medical/Surgical Hx Past Medical History Anxiety and depression, fibromyalgia, polyarthritis, sjogren syndrome, scleroderma, migraines Past Surgical History Hysterectomy, dilatation and curettage, previous EGDs and colonoscopies. Family/Social History Family Hx Other/Comment Patient reports a known medical history to her father and her father's side of the family. She states her mother's side of the family is very unhealthy . She reports history of fibromyalgia, cancer of various types, heart disease, and brain tumors. Social Hx Patient lives with family, and denies issues completing ADLs on a normal basis. 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 She is a current smoker; smokes approximately a 30 pack per day. She denies alcohol use or illicit drug use. Advance Directives Advance Directives Full Code Allergies/Home Medications Allergies Coded Allergies: NO KNOWN DRUG ALLERGIES (11/23/17) Home Medications clonazePAM* (Klonopin Tab*) 1 MG TABLET 1 MG PO TIDPRN PRN ANXIETY, Ref 0 (Reported) Entered as Reported by CORDELIA FISHER on 11/23/17332 Last Action: Continued on 11/23/17435 by ZULY GTZ DULoxetine HCL* (Cymbalta 20MG Cap*) 20 MG CAPSULE.DR 30 MG PO BID, Ref 0 (Reported) Entered as Reported by CORDELIA FISHER on 11/23/17333 Last Action: Continued on 11/23/17435 by ZULY GTZ Gabapentin* (Neurontin Tab*) 800 MG TABLET 800 MG PO TIDPRN PRN RESTLESSNESS, Ref 0 ( Reported) Entered as Reported by CORDELIA FISHER on 11/23/17334 Last Action: Continued on 11/23/17435 by ZULY GTZ Review of Systems ROS: Other Constitutional Reports: extreme fatigue ongoing for approximately 3 months. Denies: Fever, chills, weakness EENT Reports: Blisters to the side of her tongue and side of her mouth. Denies: Sore throat, congestion, Vision Change, Vision Problems. Cardiovascular Reports: Occasional swelling to lower extremities and she has exacerbation of fibromyalgia. Denies: Chest pain, palpitations, Syncope Pulmonary Denies: Shortness of breath, Cough or wheezing, hemoptysis. Gastrointestinal Reports: Diffuse abdominal pain that worsened to right lower quadrant today with bloating, nausea, and diarrhea today. Denies: Vomiting, melena, hematochezia. Genitourinary Denies: Hematuria, dysuria, frequency, or retention. Musculoskeletal Reports: Generalized pain and malaise. Skin Denies: Jaundice, rash, lesions. Endocrine Denies: Flushing, diaphoresis, Cold Intolerance, Heat Intolerance. Neuro Denies: Headache, Syncope, Dizziness, changes in bowel or bladder control, seizures, numbness or tingling in extremities. Psychiatric Reports: Depression anxiety. Denies: suicidal ideation. Physical Exam Vital Signs Vital signs: 111/58, 73, 16, 97% room air, 98.1 oral Laboratory Tests 11/23 0005 Chemistry Sodium (136 - 145 MMOL/L) 145 Potassium (3.5 - 5.1 MMOL/L) 3.8 Chloride (98 - 107 MMOL/L) 112 H Carbon Dioxide (21 - 32 MMOL/L) 26 Anion Gap (5 - 16 MMOL/L) 7 BUN (7 - 26 MG/DL) 16 Creatinine (0.510 - 0.950 MG/DL) 0.776 Est GFR ( Amer) (ML/MIN) Greater than 60 Est GFR (Non-Af Amer) (ML/MIN) Greater than 60 BUN/Creatinine Ratio (15 - 24) 21 Glucose (70 - 100 MG/DL) 91 Total Calcium (8.5 - 10.1 MG/DL) 8.3 L Total Bilirubin (0.2 - 1.0 MG/DL) 0.3 Direct Bilirubin (0.00 - 0.20 MG/DL) LESS THAN 0.05 AST (8 - 34 U/L) 22 ALT (13 - 61 IU/L) 25 Alkaline Phosphatase (45 - 117 U/L) 76 Serum Total Protein (6.0 - 8.5 GM/DL) 6.2 Albumin (3.2 - 5.0 GM/DL) 3.4 Globulin (2.2 - 4.2 GM/DL) 2.8 Albumin/Globulin Ratio (0.8 - 2.0) 1.2 Lipase (73 - 393 U/L) 178 Hematology WBC (4.5 - 11.0 K/CU MM) 9.6 RBC (3.90 - 5.30 M/CU MM) 3.69 L Hgb (11.5 - 15.5 G/DL) 11.4 L Hct (35.0 - 47.0 %) 34.5 L MCV (80.0 - 99.0 fl) 93.5 MCHC (32.0 - 36.0 GM/DL) 33.0 RDW (11 - 14.5) 12.6 Plt Count (150 - 450 K/CU MM) 209 MPV (9.4 - 12.4) 10.7 Immature Gran % (Auto) (Less than 2 %) 0.4 Abs Immat Gran (auto) (Less than 2 K/CU MM) 0.00 Seg Neutrophils % (45 - 75 %) 46.1 Lymphocytes % (20 - 40 %) 40.9 H Monocytes % (2 - 10 %) 9.2 Eosinophils % (0 - 5 %) 3.0 Basophils % (0 - 2 %) 0.4 Neutrophils # (2.0 - 8.3 K/CU MM) 4.40 Lymphocytes # (0.9 - 4.4 K/CU MM) 3.90 Monocytes # (0.1 - 1.1 K/CU MM) 0.90 Eosinophils # (0 - 0.5 K/CU MM) 0.30 Basophils # (0 - 0.2 K/CU MM) 0.00 Nucleated RBCs (Less than 1 %) 0.0 Recent Impressions COMPUTERIZED TOMOGRAPHY - CT ABD/PELV W ORALandIV CONTRAST 11/23 013 Report Impression - Status: DRAFT (not yet signed) Entered: 11/23/2017 0150 IMPRESSION: Circumferential small bowel wall thickening in the right lower quadrant, compatible with terminal ileitis. Etiology may be infectious or inflammatory. Findings in the appendix are likely secondary to adjacent inflammatory change, however primary appendicitis cannot be excluded. Impression By: DECDOCTOR - RESIDENT READ, AWAITING REVIEW Physical Examination: General: Awake, alert and oriented x4. Cooperative. Seated upright in bed, no apparent distress. Well-developed. Skin: [place], dry, warm to touch. No rash, lesions, or bruising. Nonicteric, noncyanotic. HEENT: Atraumatic, PERRL. Moist mucous membranes. Small this ulcers observed to right side of tongue. No carotid bruits or JVD noted. Lungs: Clear to auscultation bilaterally, no wheezing, rales, or rhonchi. Regular and even respirations. Symmetric expansion. Cardiovascular: Regular rate and rhythm; no murmurs, gallops, or rubs audible. Peripheral pulses strong and equal to bilateral upper and lower extremities. Abdomen: Soft, round. Abdomen is diffusely and markedly tender to light palpation. Slightly hyperactive bowel sounds and right upper, left upper, and right lower quadrants, normoactive and left lower quadrant. Abdomen appears slightly distended. Extremities: No cyanosis, clubbing, or edema. Musculoskeletal: Full ROM to bilateral upper and lower extremities. Muscle strength and tone were normal to all extremities. Neurological: Cognitive function intact. Cranial nerves II- XII grossly intact. No focal deficits. Sensation to touch normal. Psychiatric: Patient was tearful at the time of my exam, and seemed overwhelmed with her medical diagnoses. Conclusion / Plan Conclusion 1. Abdominal pain 2. Abnormal CT of the abdomen 3. Nausea 4. Anemia 5. Fatigue 6. Fibromyalgia 7. Polyarthritis 8. Sjogrens syndrome 9. Scleroderma 10. Migraines 11. Anxiety and depression Plan -Admit to inpatient MedSurg. Consult has been placed to surgery and GI. -Patient to remain nothing by mouth except for meds at this time until GI determined they' ll perform endoscopic procedures. -Abdominal pain is thought to be caused by Crohn's disease versus irritable bowel; we will appreciate GIs input. She received Solu-Medrol IV in ED; we'll defer initiation of steroids to GIs expertise given her complicated medical history with multiple autoimmune conditions. She was recently on naltrexone, and sees rheumatology in her community for f/ up with autoimmune issues. -We will give her Dilaudid IV 1, and start Percocet by mouth as she states this works best for her pain. -Phenergan IV as needed for nausea. -We will monitor her CBC, anemia is mild at this time. -Iron panel, B12, phosphorous, folate labs have been ordered. Along with ESR and CRP, which will likely be elevated given her autoimmune conditions. 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 -Resume lorazepam and Cymbalta at current outpatient dosing. I did ask psych to be consult given her tearfulness on exam, and her thoughts of feeling overwhelmed with new diagnosis. DVT prophylaxis with subcutaneous Lovenox. GI prophylaxis with Protonix by mouth. Collaborating Physician Segundo Green MD Expected Stay More than 2 days Send copy of the report to CC: Sean Young MD, Pav[place] 11/23/17 1332: History of Present Illness Chief Complaint/Present Illness: Patient came in with complaints of abdominal pain, nausea, diarrhea. History of Present Illness Mrs. Guzman is a pleasant 41-year-old female past medical history significant for fibromyalgia, autoimmune disorders of scleroderma, SJOGREN syndrome, severe migraines, who came in with complaints of abdominal pain, patient had this pain since last 3 months. It comes on and off, patient gets an attack once a month ED at last for about a week. Stress brings it on. Better with pain medications. Patient never had a GI follow-up. There was a concern for appendicitis in the ED patient was admitted for further evaluation. Patient seen by Dr. davidson and wanted to get a colonoscopy tomorrow for possible Crohn's disease(IBS). Psych consulted. Patient on clear liquid diet. Patient requesting a dietitian consult. SEGUNDO GREEN 11/23/172120: Physician Attestation Statement of Attestation I have personally conducted [id number] evaluation of this patient. She was admitted from [facility] with Crohn's disease. She'll be seen by GI for follow-up. On examination she had abdominal bloating and tenderness. Max Green Disclaimer This dictation was created using voice recognition software. Phonetic and/or minor grammatical errors may exist. eSign Date and Time Linda Ramos MD Verified/Reviewed by 11/23/17 1337 Segundo Green MD Verified/Reviewed by 11/23/172121 Zuly Gtz CNP Verified/Reviewed by 11/23/17 0511 ED DOC Observed: 11/23/2017 Status: UNK Source: [facility] 2:52 AM [facility] REPOSITORY This is a preliminary report only, as the practitioner review and authentication has not occurred. ED DOC Observed: 11/23/2017 Status: UNK Source: [facility] 2:52 AM [facility] REPOSITORY PHYSICIAN ASSESSMENT RECORDS : FlexChartData Event Time: 11/23/2017 03:10 Status: Signed [facility] Liss Guzman [[id number]] Attending Physician 41 / F / 1975 Chart (V2b) Chart created at 11/23/2017 02:24 by Mehrdad Hatfield Chart closed at 11/23/2017 02:35 Entry in Emergency Department at 11/22/2017 22:48, departure at 11/23/2017 02:52 Patient Name: Liss Guzman Record Number: [id number] Date: 11/23/2017 02:24 Entered Department at: 11/22/2017 22:48 Patient Seen at: 11/22/2017 23:44 Decision to Admit at: 11/23/2017 02:35 Historian: EMS and Patient ([facility] emergency notes) Chief Complaint:ABDOMINAL PAIN- possible appendicitis Triage Note reviewed and Initial Vital Signs reviewed. Temperature: 98.1 F (36.7 C). Pulse: 83. Respiratory Rate: 16. Blood-pressure: 119/70. Oxygen Saturation: 97%. History of Present Illness: Patient was transferred from [facility] emergency department. This is a lady that has been having abdominal pain over the last several months but worsened today. Her pain seemed to localize to the right lower abdomen. They did add noncontrast CT abdomen and pelvis which showed enteritis but possible concern for appendicitis. They talked with her surgeon there who felt [facility] PATIENT NAME: LISS GUZMAN [address] [facility] [address] MEDICAL REC #: [id number] [place] [address] EMERGENCY DEPARTMENT CHART EMERGENCY DEPARTMENT PHYSICIAN the patient may need gastroenterology as this could be Crohns or inflammatory bowel disease. They do not have GI available so they requested transfer. Patient was accepted for transfer. I evaluated her here. Patient denies any fever. She has had symptoms going on for several months. She has not had vomiting. She had a colonoscopy over a decade ago that apparently was okay. She is not had any recent workup for any Crohns or ulcerative colitis or other abdominal issue. I did review their lab work at the facility. Patient denies fever. HPI Elements: Onset: Months ago (worse today); Timing: Gradual; Quality: Aching; Severity: maximum Moderate, now Moderate; Context: At Rest; Exacerbated by: Nothing; Alleviated by: Nothing Review of Systems. Constitutional: negative for Fever Cardio-Vascular: negative for Chest Pain GI: positive for Abd. Pain and Nausea : negative for Dysuria or Urgency All other systems reviewed and negative.. Past History, Medications, Allergies, Social History and Family History reviewed in nurses note. Medications: Reviewed RN Note. LORAZEPAM 1MG TABLET - PO 3 times prn, CYMBALTA 30MG DELAYED-RELEASE CAPSULE - PO twice daily, GABAPENTIN 800MG TABLET - PO 3 times daily prn, updated with ptLili daly Allergies: Reviewed RN Note No Known Allergies Social History: Reviewed RN Note. Family History: Reviewed RN Note Physical Examination: General: Alert; nontoxic appearing female bedside HEENT: Normal ENT inspection. Eyes: Lids Normal; . Oropharynx / Throat: Normal Pharynx. pharynx looks clear. Neck: No Lymphadenopathy, No Meningismus and [facility] PATIENT NAME: LISS GUZMAN [facility] [address] MEDICAL REC #: [id number] [place] [address] EMERGENCY DEPARTMENT CHART EMERGENCY DEPARTMENT PHYSICIAN Supple; supple Respiratory: No Resp Distress and Normal Breath Sounds; clear lungs without respiratory distress Cardio-Vascular: No murmur, No rub and RRR; regular rate and rhythm Abdomen: Normal Bowel Sounds and Soft; Abdomen is soft the patient does have some guarding in the right lower abdomen. There is no rebound. It is not specifically over McBurneys point. No obvious bruising Back: No CVA tenderness, No Midline Tenderness and Non-tender; no CVA tenderness Extremity: No edema and Normal Equal pulses Neurological: Alert, Oriented X3 and No Gross Weakness Skin: No rash, No Petechiae, Warm and Dry; no shingles rash over abdomen Psychological: Mood/Affect Normal and Normal Memory/Judgment BMP, information as of 11/22/2017, 11:57 pm 145 --------+--------+--------andlt; 91 Anion Gap = 7 3.8 BUN/CREA: 21; CALCIUM TOTAL: 8.3 Mg/Dl CBC W/DIFF, information as of 11/22/2017, 11:57 pm 93.5 / 11.4* / 9.6 andgt;------andlt; 209 / 34.5* / N:46.1 BASO ABS: 0.00 K/Cu Mm; BASOPHIL %: 0.4 %; EOS ABS: 0.30 K/Cu Mm; EOSINOPHIL %: 3.0 %; IMMATR GRAN ABS: 0.00 K/Cu Mm; IMMATURE GRAN %: 0.4 %; LYMPH %: 40.9 %; LYMPH ABS: 3.90 K/Cu Mm; MCHC: 33.0 Gm/Dl; MONO ABS: 0.90 K/Cu Mm; MONOCYTE %: 9.2 %; MPV: 10.7; NEUTROPHIL ABS: 4.40 K/Cu Mm; NRBC: 0.0 %; RBC: 3.69 M/Cu Mm; RDW: 12.6 LIPASE, information as of 11/22/2017, 11:57 pm LIPASE: 178 U/L LIVER, information as of 11/22/2017, 11:57 pm A/G RATIO: 1.2; ALBUMIN: 3.4 Gm/Dl; ALK PHOS: 76 U/L; BILI DIRECT: Less Than 0.05 Mg/Dl; BILI TOTAL: 0.3 Mg/Dl; GLOBULIN: 2.8 Gm/Dl; SGOT (AST): 22 U/L; SGPT (ALT): 25 Iu/L; TP: 6.2 Gm/Dl Imaging Study Obtained: CT (ABD/PELV) W ORALIV CON [facility] PATIENT NAME: LISS GUZMAN [facility] [address] MEDICAL REC #: [id number] [place] [address] EMERGENCY DEPARTMENT CHART EMERGENCY DEPARTMENT PHYSICIAN Radiology: Discussed with Radiologist and Interpreted by Radiologist. CT abdomen and pelvis interpreted by radiology shows circumferential small bowel wall thickening in the right lower abdomen. The terminal ileum and cecum is thickened with some adjacent fat stranding. Radial G felt this could be infectious or inflammatory in nature. The appendix was fluid-filled and measured 8 mm though there was minimal adjacent fat stranding. There was diverticulosis in the rectosigmoid area without diverticulitis. No obvious abscess. . Medical Decision Making Plan donohue I initially spoke with on for general surgery. We discussed the workup at the other facility. I do agree that a contrast study would be more appropriate in her so I did order CT scan of the abdomen and pelvis with oral and IV contrast. I did also order repeat lab work. Her urinalysis there was okay. Workup donohue her chemistry panel looks okay. Her white count was elevated at the other facility actually appears better now. It is 9.6 without any bandemia. Slight predominance of lymphocytes. Lipase and liver enzymes look okay. CAT scan as above. Radiology felt this may very well be more compatible with Crohns/inflammatory bowel disease as opposed to acute appendicitis. They felt findings and the appendix are likely secondary to all the adjacent inflammatory changes in the terminal ileum and cecum. I did speak with and he also felt patient should be admitted to medicine. He stated he is willing to consult to medicine felt he was needed in addition to GI. I did speak with Dr. Green on for [facility] physician services. She was agreeable to having the patient admitted to the medical service to medical floor bed. She did ask I could put in for a GI consult who is as well as general surgery consult so I have placed that in per her request. Patient will be admitted to medical floor bed for further care and treatment at this time. I did also order her one dose of Solu-Medrol here in the department. CT scan was interpreted by radiology [facility] PATIENT NAME: LISS GUZMAN [address] [facility] [address] MEDICAL REC #: [id number] [place] [address] EMERGENCY DEPARTMENT CHART EMERGENCY DEPARTMENT PHYSICIAN Additional Information: Old records reviewed (outlying facility reports reviewed). Additional History from EMS. Discussed Results, Diagnosis and Follow-Up with Patient. Clinical Impression: 1. acute right lower abdominal pain 2. circumferential small bowel, terminal ileum, cecal wall thickening-possible Crohns/inflammatory bowel disease 3. mild adjacent fat stranding to appendix, likely secondary in nature per radiology Disposition: Admitted . Condition: Stable EMS run report reviewed (not applicable for EMT squads).. MSE completed. I was the primary ED attending.. Patient transported to ED by EMS with medical direction by SCEP physician (not applicable for EMT squads) .. 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 [address] MEDICAL REC #: [id number] [place] [address] EMERGENCY DEPARTMENT CHART EMERGENCY DEPARTMENT PHYSICIAN REGISTRATION ED Number: [id number] Marital Status: S Financial Class: COMM TRIAGE Priority: 3 - Urgent Complaint: Abdominal Pain Stated Complaint: ABDOMINAL PAIN- possible appendicitis Arrival Date: 11/22/2017 22:48 Triage Date: 11/22/2017 22:49 Mode of Arrival: Ambulance Transfer From: [facility] WC: N Language: Tongan Transport: Other$$$ccccccccccccccccccccccccccccc$$$ BED C28 In: 11/22/2017 23:00:14 11/22/2017 23:00:14 RAY C28 (Removed From) Out: 11/23/2017 02:52:53 11/23/2017 02:52:53 DRBA PROVIDERS Emergency Medical Service Provider Contact: 11/22/2017 22:49:30 EMS End: SHANAE NEWMAN Provider Contact: 11/22/2017 23:00:52 RAY End: MD Mehrdad Hatfield Provider Contact: 11/22/2017 23:44:03 MR End: [facility] PATIENT NAME: LISS GUZMAN Cherry Perez MEDICAL REC #: [id number] [place] [address] EMERGENCY DEPARTMENT CHART EMERGENCY DEPARTMENT PHYSICIAN TRIAGE HISTORY ALLERGIES Allergic To: No Known Allergies - *N/A 11/22/2017 23:00 DRBA CURRENT MEDS Name: LORAZEPAM 1MG TABLET - PO 3 times prn 11/22/2017 23:00 DRBA Name: CYMBALTA 30MG DELAYED-RELEASE CAPSULE - PO twice daily 11/22/2017 23:00 DRBA Name: GABAPENTIN 800MG TABLET - PO 3 times daily prn 11/22/2017 23:00 DRBA Name: updated with pt. b 11/22/2017 23:00 DRBA ILLNESS Illness: Other Medical polyarthritis 11/22/2017 23:00 DRBA Illness: Other Medical autoimmune disorder 11/22/2017 23:00 DRBA Illness: Depression 11/22/2017 23:00 DRBA Illness: Fibromyalgia 11/22/2017 23:00 DRBA Illness: Anxiety 11/22/2017 23:00 DRBA PAST SURGERY HIST Surgery: Hysterectomy- complete 11/22/2017 23:00 DRBA Surgery: Dandamp;C 11/22/2017 23:00 DRBA PAST SOCIAL HIST Social History: Lives alone 11/22/2017 23:00 DRBA Social History: Alcohol - None 11/22/2017 23:00 DRBA [facility] PATIENT NAME: LISS GUZMAN [address] MEDICAL REC #: [id number] [place] [address] EMERGENCY DEPARTMENT CHART EMERGENCY DEPARTMENT PHYSICIAN Social History: Recreational Drugs - None 11/22/2017 23:00 DRARTEMIO Social History: Smoker- 1/3 PPD 11/22/2017 23:00 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 [facility]. pt is here for possible appendicitis and terminal ilium. pt has increased abdominal pain today- has had abdominal pain for a while now. pt is aandamp;o x4, breathing easy and non labored, good distal pulses, abdomen is soft and round, diffuse abdominal pain, bs x4. 11/22/2017 23:53 DRBA 11/23/2017 02:51 report called to Tatyana JOLLY on 7main. 11/23/2017 02:51 DRBA TREATMENT 11/22/2017 23:49 Physician Call - Paged DR. JONES at [phone] 11/22/2017 23:53 KMS 11/22/2017 23:51 Physician Call - answered at [phone] 11/22/2017 23:53 KMS 11/22/2017 23:53 Hourly Rounding - Rounding 11/22/2017 23:54 DRBA Elimination/Toileting N Pain 10 Position Comfortable Y Safe Environment Y 11/22/2017 23:53 Patient Interaction - Name Band on Pt [facility] PATIENT NAME: LISS GUZMAN [facility] [address] MEDICAL REC #: [id number] [place] [address] EMERGENCY DEPARTMENT CHART EMERGENCY DEPARTMENT PHYSICIAN 11/22/2017 23:54 DRBA 11/22/2017 23:53 Staff/ Patient Interaction - Call light placed within reach. 11/22/2017 23:54 DRBA 11/22/2017 23:53 Staff/ Patient Interaction - Introduced self and assessed patients needs. 11/22/2017 23:54 DRBA 11/22/2017 23:53 Primary DOC Guide - A. 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 Fall Risk Assessment (Age andlt;65) 11/22/2017 23:54 DRBA History of Falling in last 3 months? No (0) Confusion or Disorientation? No (0) Intoxicated or Sedated? No (0) Impaired Gait? No (0) Mobility Assist Device Used? No (0) Altered Elimination? No (0) Fall Risk Score 1-2 Points = Low Risk. 3-4 Points = Moderate Risk. 5 or more points = High Risk. 0 Fall Score Greater andgt;= 3? No 11/22/2017 23:54 Primary DOC Guide - D. Psychosocial Assessment 11/22/2017 23:54 DRBA Over the Last 2 weeks, how often have you had little interest or pleasure in doing things (0) Not at All Is Psychosocial Assessment Score 3 or more? If score is 3 or more please consult ED Navigator! No Total Psychosocial Assessment Score 0 Over the last 2 weeks, how often have you been feeling down, depressed or hopeless (0) Not at All 11/22/2017 23:54 Primary DOC Guide - E. Family Violence [facility] PATIENT NAME: LISS GUZMAN [address] [facility] [address] MEDICAL REC #: [id number] [place] [address] EMERGENCY DEPARTMENT CHART EMERGENCY DEPARTMENT PHYSICIAN Assessment 11/22/2017 23:54 DRBA Within the past year, has anyone ever pushed, shoved, slapped, choked, hit, punched or kicked you: No Within the past year, has anyone ever pressured or forced you to have sexual activities when you did not want to: No Do you feel safe and well cared for: Yes Is there a partner from a previous or current relationship that is making you feel unsafe now: No Family Violence Clinical Observation All Negative Except 11/23/2017 00:36 Gastrointestinal - [facility] Finished at 0135 11/23/2017 00:37 DRBA 11/23/2017 02:01 Physician Call - [place] [address]/23/2017 02:03 KMS 11/23/2017 02:02 Physician Call - answered at [address]11/23/2017 02:03 KMS 11/23/2017 02:20 Physician [place] [address]/23/2017 02:29 KMS 11/23/2017 02:21 Physician Call - Dr.RAO DE [place] CRUZ SOUND [place] [address]2011/23/2017 02:29 KMS MEDICATIONS IV IV Fluid: B 11/22/2017 23:00 11/22/2017 23:00 DRBA Line #: 1 Fluid: Saline Lock Rate: ml/hr Location: antecubital fossa left Ndl Gauge: 20 Notes: IV from [facility] ED I AND O VITALS VS-ROUTINE Time: 11/22/2017 22:49 [facility] PATIENT NAME: LISS GUZMAN [address] [facility] [address] Perez MEDICAL REC #: [id number] [place] [address] EMERGENCY DEPARTMENT CHART EMERGENCY DEPARTMENT PHYSICIAN B/P: 119/70 - Right Upper Arm - Lying - Machine Pulse: 83 - Monitor Resp: 16 Sa02: 97 Room Air Temp: 98.10 F - Oral 11/22/2017 23:00 DRBA VS-Pain Time: 11/22/2017 22:49 Pain Level: 10 11/22/2017 23:00 DRBA VS-GCS Time: 11/22/2017 22:49 Visual: 4 Verbal: 5 Motor: 6 GCS Total: 15 11/22/2017 23:00 DRBA VS-HT/WT Time: 11/22/2017 22:49 Ht: 172.7 cm Stated Weight: 72.6 kg Stated 11/22/2017 23:00 DRBA VS-Visual Time: 11/22/2017 22:49 11/22/2017 23:00 DRBA VS-FHT Time: 11/22/2017 22:49 11/22/2017 23:00 DRBA VS-Notes Time: 11/22/2017 22:49 map 88 11/22/2017 23:00 DRBA VS-ROUTINE Time: 11/23/2017 00:40 B/P: 108/62 - Right Upper Arm - Lying - Machine Pulse: 78 - Monitor Resp: 16 Sa02: 98 Room Air 11/23/2017 00:40 DRBA VS-Pain Time: 11/23/2017 00:40 Pain Level: 11/23/2017 00:40 DRBA VS-GCS Time: 11/23/2017 00:40 Visual: 4 Verbal: 5 Motor: 6 GCS Total: 11/23/2017 00:40 DRBA VS-HT/WT Time: 11/23/2017 00:40 11/23/2017 00:40 DRBA VS-Visual Time: 11/23/2017 00:40 11/23/2017 00:40 DRBA VS-FHT Time: 11/23/2017 00:40 11/23/2017 00:40 DRBA VS-Notes Time: 11/23/2017 00:40 map 78 11/23/2017 00:40 DRBA VS-ROUTINE Time: 11/23/2017 02:02 B/P: 111/58 - Right Upper Arm - Lying - Machine Pulse: 73 - Monitor Resp: 16 Sa02: 98 Room Air 11/23/2017 02:02 DRBA VS-Pain Time: 11/23/2017 02:02 Pain Level: 11/23/2017 02:02 DRBA VS-GCS Time: 11/23/2017 02:02 Visual: 4 Verbal: 5 Motor: 6 GCS Total: 11/23/2017 02:02 DRBA VS-HT/WT Time: 11/23/2017 02:02 11/23/2017 02:02 DRBA VS-Visual Time: 11/23/2017 02:02 11/23/2017 02:02 DRBA VS-FHT Time: 11/23/2017 02:02 11/23/2017 02:02 DRBA VS-Notes Time: 11/23/2017 02:02 map 75 11/23/2017 02:02 DRBA [facility] PATIENT NAME: LISS GUZMAN [address] MEDICAL REC #: [id number] [place] [id number] EMERGENCY DEPARTMENT CHART EMERGENCY DEPARTMENT PHYSICIAN ORDERS *Status: Inpatient 11/23/2017 02:38 N/A Ordered: 11/23/2017 02:35 By . Other Reviewed: 11/23/2017 02:38 By . Other Solumedrol (IV)*(125mg/vial) DOSE:80 mg IV 11/23/2017 02:39 N/A Ordered: 11/23/2017 02:23 By Mehrdad Hatfield Completed Time: 11/23/2017 02:39 By Mehrdad Hatfield Noted Time: 11/23/2017 02:27 DRBA Morphine (IV)*(2mg/ml) DOSE:2 mg IV 11/23/2017 02:39 N/A Ordered: 11/23/2017 02:23 By Mehrdad Hatfield Completed Time: 11/23/2017 02:39 By Mehrdad Hatfield Noted Time: 11/23/2017 02:27 DRBA MACHINE TOOL REBUILDER ORDER: GFRP 11/23/2017 00:33 None Ordered: 11/23/2017 00:33 Completed Time: 11/23/2017 00:33 Results Time: 11/23/2017 00:33 BMP 11/23/2017 00:33 N/A Ordered: 11/22/2017 23:55 By Mehrdad Hatfield Completed Time: 11/23/2017 00:33 By Mehrdad Hatfield Noted Time: 11/23/2017 00:25 DRBA Results Time: 11/23/2017 00:33 CBC with diff 11/23/2017 00:19 N/A Ordered: 11/22/2017 23:55 By Mehrdad Hatfield Completed Time: 11/23/2017 00:19 By Mehrdad Hatfield Results Time: 11/23/2017 00:19 Liver profile 11/23/2017 00:33 N/A Ordered: 11/22/2017 23:55 By Mehrdad Hatfield Completed Time: 11/23/2017 00:33 By Mehrdad Hatfield Noted Time: 11/23/2017 00:25 DRBA Results Time: 11/23/2017 00:33 [facility] PATIENT NAME: LISS GUZMAN [address] [facility] [address] MEDICAL REC #: [id number] [place]z [address] EMERGENCY DEPARTMENT CHART EMERGENCY DEPARTMENT PHYSICIAN CT abd- PO contrast by RN (Cabinet Override) PO 11/23/2017 00:26 N/A Ordered: 11/22/2017 23:55 By Mehrdad Hatfield Completed Time: 11/23/2017 00:26 By Mehrdad Hatfield Lipase 11/23/2017 00:33 N/A Ordered: 11/22/2017 23:55 By Mehrdad Hatfield Completed Time: 11/23/2017 00:33 By Mehrdad Hatfield Noted Time: 11/23/2017 00:25 DRBA Results Time: 11/23/2017 00:33 CT abd and pel with PO and IV con 11/23/2017 01:52 N/A Ordered: 11/22/2017 23:55 By Mehrdad Hatfield Completed Time: 11/23/2017 01:52 By Mehrdad Hatfield Indication: Abdominal Pain,attention right lower quadrant Question: Are you or think you might be ? Answer: NO Question: Patient has history of true RCM allergy? Answer: NO NPO 11/22/2017 23:55 N/A Ordered: 11/22/2017 23:51 By Mehrdad Hatfield Completed Time: 11/22/2017 23:54 By Mehrdad Hatfield IV NS drip 125cc/hr 11/23/2017 00:03 N/A Ordered: 11/22/2017 23:51 By Mehrdad Hatfield Completed Time: 11/23/2017 00:03 By Mehrdad Hatfield Morphine (IV)*(4mg/ml) DOSE:4 mg IV 11/23/2017 00:04 N/A Ordered: 11/22/2017 23:51 By Mehrdad Hatfield Completed Time: 11/23/2017 00:03 By Mehrdad Hatfield Noted Time: 11/22/2017 23:55 RAY Browning (IV)*(2mg/ml) DOSE: 4 mg IV 11/23/2017 00:04 N/A Ordered: 11/22/2017 23:51 By Mehrdad Hatfield Completed Time: 11/23/2017 00:03 By Mehrdad Hatfield [facility] PATIENT NAME: LISS GUZMAN [address] [facility] [address] MEDICAL REC #: [id number] [place] [address] EMERGENCY DEPARTMENT CHART EMERGENCY DEPARTMENT PHYSICIAN Noted Time: 11/22/2017 23:54 RAY DISCHARGE Diagnosis: acute right lower abdominal pain, circumferential small bowel, terminal ileum, cecal wall thickening-possible Crohns/inflammatory bowel disease, mild adjacent fat stranding to appendix, likely secondary in nature per radiology 11/23/2017 02:35 Disposition: Time: 11/23/2017 02:35 Discharge Time: 11/23/2017 02:52 Type: *Admission to Floor Condition: Stable for admission/discharge/transfer after emergency evaluation/treatment Category: *NOT APPLICABLE Referral: 11/23/2017 02:35 Admit To: *Bed Type - Med/Surg Admit Physician: . Other PRESCRIPTIONS CHARGES SIGNATURE Mehrdad Hatfield MD MR JOSE L CONNELLY KMS TREY DODSON [facility] PATIENT NAME: LISS GUZMAN [address] [facility] [address] MEDICAL REC #: [id number] [place] [address] EMERGENCY DEPARTMENT CHART EMERGENCY DEPARTMENT PHYSICIAN CT ABD/PELV W Observed: 11/23/2017 Status: F Source: [facility] CONTRAST 2:36 AM [facility] CT ABD/PELV W ORAL&IV CONTRAST Ordering Physician: Mehrdad Hatfield MD 11/23/2017 11:[address] ABDOMEN AND PELVIS WITH INTRAVENOUS CONTRAST: Clinical Statement: Abdominal pain, attention right lower quadrant; not feeling well x3 days, one day of nausea vomiting and diarrhea, fever and chills, history of autoimmune disorders, history of total hysterectomy. Comparison: None provided for comparison TECHNIQUE: Contiguous transaxial 3.75 mm slices were obtained through the abdomen and pelvis following the uneventful administration of 100 cc of Isovue 300 . FINDINGS: In the right lower quadrant is circumferential small bowel, terminal ileum and cecal wall thickening and edema with adjacent mesenteric fat stranding (image 80). The appendix is retrocecal and fluid-filled and measures up to 8 mm (image 79), however with mild adjacent fat stranding. There is rectosigmoid diverticulosis present without evidence of acute diverticulitis. There is no evidence of small bowel obstruction. No drainable fluid collection is present. Included portions of the lung bases are clear. The heart and aorta are normal. The liver, gallbladder, spleen, pancreas, adrenal glands and kidneys are normal. The urinary bladder is suboptimally distended. The uterus is surgically absent. There is no evidence of gross pneumoperitoneum or ascites. No pathologically enlarged lymph nodes are present. IMPRESSION: Circumferential small bowel wall thickening in the right lower quadrant, compatible with terminal ileitis. Etiology may be infectious or inflammatory. Findings in the retrocecal appendix may be secondary to adjacent inflammatory change, however primary appendicitis cannot be excluded. A copy of this report was faxed at the time of dictation. Dictated by Safe Deposit Clerk: Gosia Agustin MD Reviewed and Signed by: Chavez Mauro MD PhD ---- Electronic Signature on File ---- Signed By: Chavez Mauro MD PhD [email or web address] Dictated: 11/23/2017 1:37 AM Signed: 11/23/2017 9:33 AM Reported By: CHAVEZ MAURO M.D. Signed By: CHAVEZ MAURO M.D. Observed: 11/23/2017 Status: UNK Source: [facility] 2:36 AM [facility] [place] REPOSITORY DATE OF CONSULTATION: 11/23/2017 This is a 41-year-old single woman who I am being asked to see because of anxiety, depression, and tearfulness. She has just been given a presumptive diagnosis of Crohn's disease, and this has made her quite unhappy. She also has other ongoing illnesses such as fibromyalgia, migraines, scleroderma, polyarthritis, and Sjogren syndrome, so this is one more illness she expects she will have to deal with. Several years ago she moved down to [place] to be with her son who was in the . She lived with a lady friend for a while, but then there were issues with her dog and the apartment which did not approve of dogs, and so 2 years ago she decided to move back up here. Also another reason for that was her stepfather was sick and she wanted to help out with them, so she moved in with her mother and did a lot of work around the house including snow blowing and yard work. Her stepfather was very sick, and he almost several times. After he recovered, he did not remember or appreciate everything she did for him. Finally 2 months ago she moved out into her own apartment. The rest of her family did not approve of that and apparently wanted her to stay on and take care of her parents, but she became bitter about the lack of appreciation that she had. One of her dogs did , and that was very hard on her. She has seen psychiatrists in the past, and generally she felt there was something wrong with her, but she decided that it was other people causing the problem. She still is on Cymbalta 30 mg twice a day and Klonopin 1 mg t.i.d. p.r.n. She takes anywhere between 1 and 3 Klonopins a day. She is hoping to get off her psychotropic medications. She also takes Neurontin 800 mg t.i.d. p.r.n. which helps her with nerve pain and fibromyalgia and helps her sleep and calms her legs down. She was on Cymbalta in the past, and now the Cymbalta was restarted for fibromyalgia pain. She generally sleeps well at night, and her appetite has been somewhat decreased recently. The main reason she is now in the hospital is because she developed severe abdominal pain, and that has been developing for 3 months. At first it was thought that she had possible appendicitis. Now the diagnosis is veering towards Crohn's disease, and she will have GI evaluation today. SOCIAL HISTORY: She is single and lives alone in an apartment. 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 She likes her job. She smokes around 1/3 of a pack of cigarettes a day. She does not drink, does not use drugs. She enjoys [employer] and [employer] and working on [employer]. She has a dog and a cat. Her son is 22 years old and is in the in [place]. FAMILY HISTORY: She says everyone in her family is on antidepressants for depression. She also has a family history of fibromyalgia, cancer, heart disease, and brain tumors. PAST MEDICAL HISTORY: She has a history of anxiety and depression, fibromyalgia, polyarthritis, Sjogren syndrome, scleroderma, migraines, and rheumatoid arthritis. PAST SURGICAL HISTORY: She has had hysterectomy, dilatation and curettage, EGDs, [facility] PATIENT NAME: LISS GUZMAN [address] [facility] [address] MEDICAL REC #: [id number] [place] [address] ADMIT DATE: 11/23/17 DISCHARGE DATE: 11/24/17 CONSULTATION REPORT ATTENDING PHY: Segundo Green MD colonoscopies. REVIEW OF SYSTEMS: She has had severe abdominal pain, and she has had decreased appetite, depression, and anxiety. MEDICATIONS: Current medications include: 1. Lovenox. 2. Nicoderm patch. 3. Cymbalta 30 mg b.i.d. 4. Protonix. 5. Phenergan. 6. Percocet. 7. Tylenol. 8. Klonopin 1 mg t.i.d. p.r.n. 9. Neurontin 800 mg t.i.d. p.r.n. ALLERGIES: She has no known allergies to medications. PHYSICAL EXAMINATION: Vital Signs: Temperature is 98.1 degrees. Pulse 73, respirations 16, blood pressure 111/58. Mental Status Examination: This is an alert and pleasant and cooperative woman who talks readily about herself. Physical strength is intact. She is oriented to person, place, day, and situation. Memory is fair. She denies any thoughts of suicide. Denies auditory or visual hallucinations. Her affect is sad, and her mood is depressed and anxious. Speech is spontaneous. Thought processes are worrisome. Associations are intact. Concentration is fair. Language is normal. Fund of knowledge is average. There is no evidence for any gross impairment of insight or judgment. IMPRESSION: 1. Major depression, recurrent, moderate. 2. Abdominal pain. 3. Nausea. 4. Anemia. 5. Fatigue. 6. Fibromyalgia. 7. Polyarthritis. 8. Sjogren syndrome. 9. Scleroderma. 10. Migraines. 11. Rule out Crohn's disease. RECOMMENDATIONS: She should continue the Cymbalta 30 mg twice a day and Klonopin 1 mg t.i.d. p.r.n. She is changing her lifestyle and becoming more independent from her family, which has helped her with her difficulties. I also recommended to her [facility] PATIENT NAME: LISS GUZMAN [facility] MEDICAL REC #: [id number] [place] [address] ADMIT DATE: 11/23/17 DISCHARGE DATE: 11/24/17 CONSULTATION REPORT ATTENDING PHY: Segundo Green MD that she begin to focus on stress as being a major problem and especially since it feeds into her many medical illnesses. She admits that she recognizes stress to be a problem, but she has not been very effective at dealing with it. Thank you for asking me to see Ms. Guzman. MD SHER [id number] [facility] File#: [id number] CC: Segundo Green MD Verified/Reviewed by 11/28/17 0814 JESSE [facility] PATIENT NAME: LISS GUZMAN Dr. Perez MEDICAL REC #: [id number] [place] [address] ADMIT DATE: 11/23/17 DISCHARGE DATE: 11/24/17 CONSULTATION REPORT ATTENDING PHY: Segundo Green MD CR Observed: 11/23/2017 Status: UNK Source: [facility] 2:36 AM [facility] [place] REPOSITORY DATE OF CONSULTATION: 11/23/2017 REASON FOR THE CONSULT: Abdominal pain, abnormal CT findings. HISTORY OF PRESENT ILLNESS: Patient is a 41-year-old lady who complains of chronic abdominal pain for the past 3 months associated with diarrhea, presented to the [facility]. CT scan showed questionable appendicitis with transfer to [facility] for further evaluation. Repeated CT scan here with contrast showed wall thickening of a terminal ileum highly suspicious of Crohn's disease. GI consult was called. Patient was seen at the bedside, still complains of abdominal pain with watery diarrhea. No changes in weight. Patient has no family history of Crohn's disease, no travel history recently, had a remote colonoscopy more than 20 years ago, negative. PAST MEDICAL HISTORY: Anxiety, depression, fibromyalgia, polyarthritis, Sjgren's syndrome, scleroderma, migraines. PAST SURGICAL HISTORY: Hysterectomy. FAMILY HISTORY: Noncontributory. PERSONAL HISTORY: Denies alcohol use, drug abuse. He is an active smoker. REVIEW OF SYSTEMS: All review of systems negative except as mentioned in the history of present illness and past medical/surgical history. PHYSICAL EXAMINATION: Vital Signs: Reviewed. General Appearance: She is in mild distress. HEENT: Eyes are clear. No jaundice. Lungs: Clear to auscultation. Heart: Rate regular and rhythm, no murmur. Abdomen: Soft. Tenderness at right lower quadrant. No rebound. Bowel sounds normal. IMPRESSION: A 41-year-old lady, complains of chronic abdominal pain for the past [address] abdomen and pelvis showed wall thickening of terminal ileum, highly suspicious of inflammatory bowel disease. Discussed with the patient. At this point we will schedule a colonoscopy evaluation. Patient understood and so the plan for this patient is to schedule colonoscopy. Further recommendations pending procedure findings. [facility] PATIENT NAME: LISS GUZMAN [facility] [address] MEDICAL REC #: [id number] [place] [address] ADMIT DATE: 11/23/17 DISCHARGE DATE: CONSULTATION REPORT ATTENDING PHY: Segundo Green MD, MD [id number] [facility] File#: [id number] Verified/Reviewed by 11/24/17 1102 LUZ ELENA [facility] PATIENT NAME: LISS GUZMAN [facility] [address] MEDICAL REC #: [id number] [place] [address] ADMIT DATE: 11/23/17 DISCHARGE DATE: CONSULTATION REPORT ATTENDING PHY: Segundo Green MD GE Observed: 11/23/2017 Status: UNK Source: [facility] 2:36 AM [facility] DATE OF SERVICE: 11/24/2017 PROCEDURE: Colonoscopy REASON FOR THE PROCEDURE: Abdominal pain. POSTPROCEDURAL DIAGNOSIS: 1. The GI could not be intubated. 2. 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 Biopsied to rule out inflammatory bowel disease. 3. Normal colonic mucosa, random biopsied. PROCEDURE: The colonoscope as advanced to the cecum with difficulty due to severe tortuous colon. The prep was fair. MEDICATIONS: Patient is under maximum sedation. FINDINGS: Severe erythematous ulcerated mucosa seen at ileocecal valve and the opening of the terminal ileum. The terminal ileum could not be intubated due to severe stenosis. I random biopsied to rule out IBD. The mucosa in the entire colon appeared normal. Random biopsied. RECOMMENDATIONS: Follow up on pathology report. Humphrey Davidson MD [id number] [facility] File#: [id number] Verified/Reviewed by 12/11/17 0827 LUZ ELENA [facility] PATIENT NAME: LISS GUZMAN [address] [facility] [address] MEDICAL REC #: [id number] [place] [address] ADMIT DATE: 11/23/17 DISCHARGE DATE: 11/24/17 GASTROENTEROLOGY REPORT ATTENDING PHY: Linda Ramos MD DOSETRACK Observed: 11/23/2017 Status: UNK Source: [facility] 1:07 AM [facility] Test Dose report. Name: MARIANO Bowen Accession Number: [id number] Dose Type: CT Exam: ABPOI-C Max CTDIVol: 15 mGy DLP: 857.59 mGy*cm CT 3 CT ABD/PELV W ORAL IV CONTRAST [id number] [id number] [id number] 6.1 Abdomen Pelvis Abdomen 5.0000 618.5500 1 [id number] [id number] [id number] [id number] 6.1 Abdomen Pelvis Abdomen 5.0000 618.5500 1 [id number] 13210.6057647805 [id number] 6.1 Abdomen Pelvis Abdomen 15.6653729982 857.3675855527 40.0000 0.9800 571.6800 800.0000 238414 1 38.50 [facility] PATIENT NAME: LSIS GUZMAN Dr. Perez MEDICAL REC #: [id number] [place] [address] ADMIT DATE: [facility] ATTENDING PHY: Krys Serrano,Emergency Physicia [facility] PATIENT NAME: LISS GUZMAN [facility] MEDICAL REC #: [id number] [place] [address] ADMIT DATE: [facility] ATTENDING PHY: Krys Garcíay,Emergency Physicia CBC W/DIFF Collected: 11/23/2017 Status: F Source: [facility] 12:05 AM [facility] RE[facility]IT[facility] Order Comment: [place]: TYPE CODE TESTS RESULT OUT OF RANGE REFERENCE UNITS LAB L200.09317 4.5-11.0 K/CU MM WBC Normal 9.6 LAB L200.74743 3.90-5.30 M/CU MM Low RBC 3.69 LAB L200.28226 11.5-15.5 G/DL Low HGB 11.4 LAB L200.64755 35.0-47.0 % Low HCT 34.5 LAB L200.08269 80.0-99.0 fl MCV Normal 93.5 LAB L200.73240 32.0-36.0 GM/DL MCHC Normal 33.0 LAB L200.81038 11-14.5 RDW Normal 12.6 LAB L200.17082 9.4-12.4 MPV Normal 10.7 LAB L200.50095 150-450 K/CU MM PLT Normal 209 LAB L200.43362 45-75 % NEUTROPHILS Normal % 46.1 LAB L200.72414 Less than 2 % IMMATURE Normal GRAN % 0.4 LAB L200.68511 20-40 % High LYMPH % 40.9 LAB L200.00088 2-10 % MONOCYTE % Normal 9.2 LAB L200.66504 0-5 % EOSINOPHIL Normal % 3.0 LAB L200.05169 0-2 % BASOPHIL % Normal 0.4 LAB L200.54519 2.0-8.3 K/CU MM NEUTROPHIL Normal ABS 4.40 LAB L200.44152 Less than 2 K/CU MM IMMATR GRAN Normal ABS 0.00 LAB L200.40877 0.9-4.4 K/CU MM LYMPH ABS Normal 3.90 LAB L200.95697 0.1-1.1 K/CU MM MONO ABS Normal 0.90 LAB L200.72873 0-0.5 K/CU MM EOS ABS Normal 0.30 LAB L200.05905 0-0.2 K/CU MM BASO ABS Normal 0.00 LAB L200.67090 Less than 1 % NRBC Normal 0.0 Performed By: #### L200.76500 #### [facility] [address] [id number] BMP Collected: 11/23/2017 Status: F Source: [facility] 12:05 AM [facility] RE[facility] Order Comment: [place]: TYPE CODE TESTS RESULT OUT OF RANGE REFERENCE UNITS LAB L500.66299 136-145 MMOL/L Normal NA 145 LAB L500.96046 3.5-5.1 MMOL/L Normal K 3.8 LAB L500.33990 98-107 MMOL/L High CL 112 LAB L500.06152 21-32 MMOL/L Normal CO2 26 LAB L500.57519 5-16 MMOL/L Normal AGAP 7 LAB L500.77773 70-100 MG/DL Normal GLU 91 Result Comment: 70-100- Normal Fasting; 100-125 Impaired Fasting; greater than 126 on more than one result- Diabetes. ADA guidelines. Results may be falsely elevated after the administration of Sulfapyridine. Results may be falsely depressed after the administration of Sulfasalazine. LAB L500.22673 7-26 MG/DL Normal BUN 16 LAB L500.80472 0.510-0.950 MG/DL Normal CREAT 0.776 Result Comment: Patients receiving either N-Acetylcysteine (NAC) or Metamizole prior to venipuncture, may have falsely depressed results. LAB L500.20223 15-24 Normal BUN/CREA 21 LAB L500.53739 8.5-10.1 MG/DL Low CALCIUM TOTAL 8.3 Performed By: #### L500.83899, L500.09975, L500.15347, L500.37609 #### [facility] [address] [place] [address] GFR EST Collected: 11/23/2017 Status: F Source: [facility] 12:05 AM [facility] REPOSITORY Order Comment: [place]: M TYPE CODE TESTS RESULT OUT OF RANGE REFERENCE UNITS LAB L500.84628 ML/MIN Normal IF non-AFR Greater than AMER 60 LAB L500.33994 ML/MIN Normal IF Greater than AMER 60 Performed By: #### L500.28928, L500.27391, L500.22506, L500.49745 #### [facility] [address] [place] [address] LIVER Collected: 11/23/2017 Status: F Source: [facility] 12:05 AM [facility] REPOSITORY Order Comment: [place]: M TYPE CODE TESTS RESULT OUT OF RANGE REFERENCE UNITS LAB L500.26527 6.0-8.5 GM/DL TP Normal 6.2 LAB L500.81023 3.2-5.0 GM/DL Normal ALBUMIN 3.4 LAB L500.55420 2.2-4.2 GM/DL Normal GLOBULIN 2.8 LAB L500.16644 0.8-2.0 Normal A/G RATIO 1.2 LAB L500.84519 0.2-1.0 MG/DL Normal BILI TOTAL 0.3 LAB L500.67125 0.00-0.20 MG/DL Normal BILI DIRECT LESS THAN 0.05 LAB L500.11254 8-34 U/L Normal SGOT (AST) 22 Result Comment: RESULTS MAY BE FALSELY DEPRESSED AFTER THE ADMINISTRATION OF SULFASALAZINE AND/OR SULFAPYRIDINE. LAB L500.43662 13-61 IU/L Normal SGPT (ALT) 25 Result Comment: RESULTS MAY BE FALSELY DEPRESSED AFTER THE ADMINISTRATION OF SULFASALAZINE AND/OR SULFAPYRIDINE. LAB L500.60166 45-117 U/L Normal ALK PHOS 76 Performed By: #### L500.33471, L500.70912, L500.75730, L500.18555 #### [facility] [address] [place] [address] LIPASE Collected: 11/23/2017 Status: F Source: [facility] 12:05 AM [facility] REPOSITORY Order Comment: [place]: M TYPE CODE TESTS RESULT OUT OF RANGE REFERENCE UNITS LAB L500.94825 73-393 U/L Normal LIPASE 178 Performed By: #### L500.85226, L500.48326, L500.90605, L500.12691 #### [facility] [address] [place] [address] EMERGENCY DEPARTMENT Observed: 11/22/2017 Status: F Source: [place] SUMMARY 8:58 PM [facility] REPOSITORY [facility] Medical Records Department [address] [place] [address] Emergency Department Summary 11/22/17 1813 MR#: [id number] Acct: [id number] Name: LISS GUZMAN Rep #: [id number] : 1975 41 From: Juventino Messer MD PCP: Chavez Young DO Status: REG ER - ER Visit Summary Date of Service: 11/22/17 Chief Complaint: Right lower quadrant abdominal pain History of Present Illness: The patient is a 41 F with right lower quadrant abdominal pain for 3 days. She states that she was examined by the nurse at work today and was told that she has rebound tenderness and sent here to rule out appendicitis. She is nauseated but has not vomited. She had loose watery diarrhea this morning that has resolved. No back pain or hematuria. She has had similar symptoms in the past with no conclusive diagnosis found on her workup. Physical Examination: Vitals are within normal limits. She is not in distress. She does have mild right lower quadrant abdominal tenderness but no rebound or guarding Test Results: She does have a mild leukocytosis of 13,200. Other labs within normal limits. CT scan revealed inflammation in the bowel loops of the right lower quadrant consistent with enteritis however the appendix was also enlarged and there was surrounding stranding and inflammation and appendicitis could not be ruled out according to the radiologist. It is also possible that the surrounding inflammation was secondary to the adjacent bowel loops. Emergency Department Course and Treatment: I discussed the case with Dr. Bronson who requested transfer to a tertiary care center since there is no gastrointestinal coverage here and she believes that she will likely need a colonoscopy to examine her terminal ileum. The patient requested to be transferred to [facility] and she was accepted by Dr. Tariq. Treatment Plan: Was given 1 dose of IV Zosyn and transferred in stable condition Disposition: Transferred to [facility] Impression: Initial encounter right lower quadrant abdominal pain, enteritis versus early appendicitis This note was generated with ViaCyte dictation software. It may contain incorrect words, spelling, and punctuation that were not noted in review of the chart prior to signing ED Disposition - Plan for ED Patient: Chief Complaint: Abd Pain Referrals: Chavez Young, DO [Primary Care Provider] - What to do if you have Problems For any increased pain, shortness of breath, bleeding, nausea or vomiting, chest pain, or any unexpected problems, contact your Primary Care Provider. Call [facility] ([phone]) or report to the closest Emergency Room. Call 911 if necessary. 11/22/172057 <Electronically signed by Juventino Messer MD> Date Juventino Messer MD Cosigner Signature (If Indicated): Date CC: Chavez Young DO URINALYSIS, COMPLETE Collected: 11/22/2017 Status: F Source: [place] 6:17 PM [facility] REPOSITORY Order Comment: Order Date: 11/22/17 Has pt arrived? Y How was Urine Obtained? CLEAN CATCH TYPE CODE TESTS RESULT OUT OF RANGE REFERENCE UNITS LAB L400.3000 Yellow COLOR Normal Yellow LAB L400.3050 Clear Normal CLARITY Sl. Cloudy LAB L400.3200 Normal mg/dl Normal GLUCOSE, UR Normal LAB L400.3300 Negative mg/dL Normal BILIRUBIN URINE Negative LAB L400.3400 Negative mg/dl Normal KETONE UR Negative LAB L400.3465 1.002-1.030 Normal SP.GR. DIPSTX 1.010 LAB L400.3550 5.0 - 8.0 pH UR Normal 6.0 LAB L400.3600 Negative mg/dl PROT Normal DIPSTX Negative LAB L400.3700 Normal mg/dl Normal UROBILI Normal LAB L400.3750 Negative Normal NITRITE UR Negative LAB L400.3780 Negative /ul Normal OCCULT BLOOD-UR Negative LAB L400.3800 Negative /ul High LEUK ESTERASE 100 LAB L400.4050 0-5 /hpf WBC Normal 0-5 SEEN LAB L400.4100 0-5 /hpf 0 Normal RBC-UA SEEN LAB L400.4150 5-10 /hpf SQUAM Normal EPI 0-5 SEEN LAB L400.4300 None Seen /hpf 0 Normal BACTERIA SEEN LAB L400.4350 <or=2+ /hpf 0 Normal MUCUS, URINE SEEN Performed By: #### L400.0001 #### [facility] [address] [place], [place], [address] CBC W/DIFF, AUTOMATED Collected: 11/22/2017 Status: F Source: [place] 6:15 PM [facility] REPOSITORY TYPE CODE TESTS RESULT OUT OF RANGE REFERENCE UNITS LAB L100.1000 4.4-11.0 K/mm3 High WBC 13.3 LAB L100.1200 4.2-5.4 M/mm3 Normal RBC 4.39 LAB L100.1300 12.0-15.0 g/dl Normal HGB 13.7 LAB L100.1400 37-47 % Normal HCT 40.5 LAB L100.1500 81-99 fL Normal MCV 92.3 LAB L100.1600 27.0-32.0 pg Normal MCH 31.2 LAB L100.1700 32-36 g/gl Normal MCHC 33.8 LAB L100.1810 11.6-14.6 % Normal RDW CV 12.7 LAB L100.1820 35.1-43.9 fl Normal RDW SD 43.0 LAB L100.1900 150-450 K/mm3 Normal PLT 307 LAB L100.2000 6.2-12.0 fl Normal MPV 10.4 LAB L100.2100 47-70 % Normal NEUT% 53.1 LAB L100.2200 19-41 % Normal LY% 33.3 LAB L100.2300 0-10 % High MONO% 11.2 LAB L100.2400 0-5 % Normal EO% 2.0 LAB L100.2500 0-1 % Normal BASO% 0.2 LAB L100.2550 0.0-0.9 % Normal IM GRAN % 0.200 Result Comment: IG% - Immature Granulocytes (promyelocytes, myelocytes and metamyelocytes) > 1% indicates that a LEFT SHIFT is Present. LAB L100.2620 2.0-7.7 X10 3/uL Normal Absolute Neut 7.1 LAB L100.2720 0.83-4.51 X10 3/ul Normal Absolute Lymph 4.42 Performed By: #### L100.0100 #### [facility] [address] [place], [address] BASIC METABOLIC Collected: 11/22/2017 Status: F Source: [place] PROFILE (BMP) 6:15 PM [facility] REPOSITORY TYPE CODE TESTS RESULT OUT OF RANGE REFERENCE UNITS LAB L501.0100 74-106 mg/dL High GLU 109 Result Comment: Fasting Glucose result from 100 to 125 mg/dL suggests IMPAIRED HOMEOSTASIS per A.D.A. criteria. Please note revised GLUCOSE reference range effective 2017. LAB L501.1000 7-18 mg/dL Normal BUN 14 LAB L501.1100 0.55-1.02 mg/dL Normal CREAT,SERUM 0.86 Result Comment: The validity of the calculated GFR AND GFRAA in patients over 70 years has not been determined. Clinical correlation is essential. LAB L501.1110 >60 mL/min Normal EST GFR 77 Result Comment: Non- GFR Calc LAB L501.1115 >60 mL/min Normal EST GFR - AA 93 Result Comment: GFR Calc LAB L501.1255 ml/min Normal Estimated CRCL 85.96 LAB L501.1300 10-20 RATIO Normal BUN/CRE 16.4 LAB L501.2200 8.5-10 mg/dL Normal .1 CA 9.2 LAB L501.5300 136-14 mmol/L Normal 5 NA 140 LAB L501.5600 3.5-5. mmol/L Normal 1 K 3.7 LAB L501.5900 98-107 mmol/L Normal CL 107 LAB L501.6100 21.0-3 mmol/L Normal 2.0 CO2 24.0 LAB L501.6200 5-15 Normal GAP 9 Performed By: #### L500.2500, L500.3400, L501.2450 #### [facility] [address] [place], [place], [address] LIVER PROFILE Collected: 11/22/2017 Status: F Source: [place] 6:15 PM [facility] REPOSITORY TYPE CODE TESTS RESULT OUT OF RANGE REFERENCE UNITS LAB L501.1500 6.4-8.2 g/dL Normal T PROT 8.0 LAB L501.1800 3.2-5.0 g/dL Normal ALB 4.1 LAB L501.1950 2.2-4.2 g/dL Normal GLOB 3.9 LAB L501.4100 15-37 U/L Normal AST 28 LAB L501.4305 45-117 U/L Normal ALK P 101 LAB L501.4405 13-56 U/L Normal ALT 29 LAB L501.4600 0.20-1.00 mg/dL Normal T BILI 0.40 LAB L501.4700 0.00-0.30 mg/dL Normal D BILI 0.11 Performed By: #### L500.2500, L500.3400, L501.2450 #### [facility] [address] [place], [place], [address] LIPASE Collected: 11/22/2017 Status: F Source: [place] 6:15 PM [facility] REPOSITORY TYPE CODE TESTS RESULT OUT OF RANGE REFERENCE UNITS LAB L501.2450 73-393 U/L Normal LIPASE 147 Performed By: #### L500.2500, L500.3400, L501.2450 #### [facility] [address] [place], [place], [address] ABDOMEN/PELVIS WITHOUT Observed: 11/22/2017 Status: F Source: [place] CONT 6:13 PM [facility] REPOSITORY [facility] Imaging Services [address] [place] [address] Abdomen/Pelvis without Cont MR#: [id number] Acct: [id number] Name: LISS GUZMAN Rep #: [id number] : 1975 F 41 From: Sami Conley MD PCP: Chavez Young DO Status: REG ER Study: Abdomen/Pelvis without Cont Date of Exam: 11/22/17 Exam# [id number] Ordering Dr: Juventino Messer MD STUDY: CT ABDOMEN AND PELVIS WITHOUT CONTRAST REASON FOR EXAM: Female, 41 years old. Abdominal pain RADIATION DOSAGE (If Supplied By Facility): CTDIvol = ( 6.62 ) mGy, DLP = ( 342.61 ) mGycm TECHNIQUE: Transaxial images were obtained from the dome of the diaphragm to the symphysis pubis without oral contrast, and without intravenous contrast. Sagittal and coronal images were reconstructed. Individualized dose optimization techniques were used for this CT. COMPARISON: 10/29/2017. FINDINGS: Evaluation of the abdominal viscera is limited in the absence of intravenous contrast. The visualized lung bases are clear. The visualized portions of the heart and pericardium are within normal limits. There are no calcified gallstones present. The liver demonstrates an unremarkable unenhanced appearance. The spleen is normal in size. The pancreas demonstrates an unremarkable unenhanced appearance. The adrenal glands are within normal limits. There are no obstructing renal stones. There is no hydronephrosis. Normal visualized stomach. There is no bowel obstruction. There are thickened loops of small bowel in the right lower quadrant, consistent with enteritis. There is a small amount of adjacent free fluid. The appendix is mildly thickened, measuring 7 mm. There is a small amount of adjacent fluid and stranding. However, this is likely secondary to the adjacent small bowel inflammation. The aorta is normal in caliber. There is no abdominal or pelvic free air, fluid collection or lymphadenopathy. There are no destructive osseous lesions. CT/Abdomen/Pelvis without Cont IMPRESSION: Thickened small bowel loops in the right lower quadrant, consistent with enteritis. Small amount of free fluid. Mild thickening of the appendix with adjacent fluid and stranding. This is likely due to the adjacent small bowel inflammation. However, if there is concern for acute appendicitis, a repeat exam with oral and intravenous contrast can be performed. Electronically Signed: Sami Conley, at 19:22 EDT Tel , Service support , CC: Jaden Messer MD; Chavez Young DO Divisional Storekeeper: Signed EMERGENCY DEPARTMENT Observed: 10/29/2017 Status: F Source: [place] SUMMARY 12:38 PM [facility] REPOSITORY [facility] Medical Records Department [address] [place] [address] Emergency Department Summary 10/29/17 1043 MR#: [id number] Acct: [id number] Name: LISS GUZMAN Rep #: [id number] : 1975 41 From: Sabas Bray MD PCP: Chavez Young DO Status: REG ER - ER Visit Summary Date of Service: 10/29/17 Chief Complaint: Left lower quadrant abdominal pain, dysuria History of Present Illness: The patient is a 41 F with history of Sjogren's syndrome and polyarthritis presents to the emergency department with left lower quadrant abdominal pain to her back and dysuria. Patient works at a [employer]. She states she has had 2 urine dips which were positive for bilirubin. She states she went to the emergency department at [facility] yesterday. States they checked her urine and states that it did have bilirubin in it. She states that they did not tell her anything else. She is concerned because she still having some abdominal pain. She denies any fevers. She has had some chills. She states she was recently started on naltrexone, and in order to do this, she had to be taken off of her tramadol. She came off the tramadol week ago and had short- lived withdrawal symptoms that are now improved. She states she has never had pain like this before. She has had prior hysterectomy but denies any other abdominal surgery. Physical Examination: Vital signs reviewed General: Well-nourished, well-developed Head: Normocephalic, atraumatic Eyes: Pupils equal and reactive, extraocular muscles intact Neck, supple, no lymphadenopathy Heart: Regular rate and rhythm Respiratory: No distress, clear bilaterally Abdomen: Soft, mildly tender in the left lower quadrant without rebound or guarding, nondistended, no peritoneal signs Back: Nontender Extremities: Nontender, no edema, no cords Skin: Normal color no rash Neuro: Alert and oriented, no focal or lateralizing deficits Test Results: [] Emergency Department Course and Treatment: The patient has minimal tenderness in her left lower quadrant. She did state that she had bilirubin in her urine. I obtained a urine here. There is no blood. There is no bilirubin. Screening labs are obtained including LFTs. These are also normal. The patient underwent CT of abdomen pelvis with IV contrast. There is no definitive intra-abdominal pathology to explain her pain. I am unsure if she perhaps had some blood breakdown which cause the elevated bilirubin if she passed a small stone, or even if there was a trace infection which is now cleared. However, her exam is unremarkable, her testing is normal. She has had almost complete resolution of symptoms with Toradol and Bentyl. This may be also some withdrawal symptoms because she recently came off tramadol that she had been on for years. I do feel that this patient is safe for further outpatient workup. She will continue anti-inflammatories at home. She is discharged. Treatment Plan: [] Disposition: Discharge Impression: 1. Left-sided flank pain This note was generated with ViaCyte dictation software. It may contain incorrect words, spelling, and punctuation that were not noted in review of the chart prior to signing ED Disposition - Plan for ED Patient: Chief Complaint: Abd Pain Instructions: ED Abdominal Pain Unkn Cause Referrals: Chavez Young, DO [Primary Care Provider] - What to do if you have Problems For any increased pain, shortness of breath, bleeding, nausea or vomiting, chest pain, or any unexpected problems, contact your Primary Care Provider. Call [facility] ([phone]) or report to the closest Emergency Room. Call 911 if necessary. 10/29/17 4341 <Electronically signed by Sabas Bray MD> Date Sabas Valera Signature (If Indicated): Date CC: Chavez Young DO URINALYSIS, COMPLETE Collected: 10/29/2017 Status: F Source: [place] 10:39 AM [facility] REPOSITORY Order Comment: Order Date: 10/29/17 How was Urine Obtained? EPIC PRELUDE ANALYST TO SPECIFY TYPE CODE TESTS RESULT OUT OF RANGE REFERENCE UNITS LAB L400.3000 Yellow COLOR Normal Yellow LAB L400.3050 Clear Normal CLARITY Clear LAB L400.3200 Normal mg/dl Normal GLUCOSE, UR Normal LAB L400.3300 Negative mg/dL Normal BILIRUBIN URINE Negative LAB L400.3400 Negative mg/dl Normal KETONE UR Negative LAB L400.3465 1.002-1.030 Normal SP.GR. DIPSTX 1.005 LAB L400.3550 5.0 - 8.0 pH UR Normal 7.0 LAB L400.3600 Negative mg/dl PROT Normal DIPSTX Negative LAB L400.3700 Normal mg/dl Normal UROBILI Normal LAB L400.3750 Negative Normal NITRITE UR Negative LAB L400.3780 Negative /ul Normal OCCULT BLOOD-UR Negative LAB L400.3800 Negative /ul LEUK Normal ESTERASE Negative LAB L400.4050 0-5 /hpf WBC 0 Normal SEEN LAB L400.4100 0-5 /hpf 0 Normal RBC-UA SEEN LAB L400.4150 5-10 /hpf SQUAM Normal EPI 0-5 SEEN LAB L400.4300 None Seen /hpf 0 Normal BACTERIA SEEN LAB L400.4350 <or=2+ /hpf 0 Normal MUCUS, URINE SEEN Performed By: #### L400.0001 #### [facility] [address] [place], [address] CBC W/DIFF, AUTOMATED Collected: 10/29/2017 Status: F Source: [place] 10:36 AM [facility] REPOSITORY TYPE CODE TESTS RESULT OUT OF RANGE REFERENCE UNITS LAB L100.1000 4.4-11.0 K/mm3 Normal WBC 6.8 LAB L100.1200 4.2-5.4 M/mm3 Low RBC 3.75 LAB L100.1300 12.0-15.0 g/dl Low HGB 11.9 LAB L100.1400 37-47 % Low HCT 34.5 LAB L100.1500 81-99 fL Normal MCV 92.0 LAB L100.1600 27.0-32.0 pg Normal MCH 31.7 LAB L100.1700 32-36 g/gl Normal MCHC 34.5 LAB L100.1810 11.6-14.6 % Normal RDW CV 12.0 LAB L100.1820 35.1-43.9 fl Normal RDW SD 39.4 LAB L100.1900 150-450 K/mm3 Normal PLT 275 LAB L100.2000 6.2-12.0 fl Normal MPV 9.8 LAB L100.2100 47-70 % Normal NEUT% 48.1 LAB L100.2200 19-41 % Normal LY% 39.3 LAB L100.2300 0-10 % Normal MONO% 9.5 LAB L100.2400 0-5 % Normal EO% 2.5 LAB L100.2500 0-1 % Normal BASO% 0.3 LAB L100.2550 0.0-0.9 % Normal IM GRAN % 0.300 Result Comment: IG% - Immature Granulocytes (promyelocytes, myelocytes and metamyelocytes) > 1% indicates that a LEFT SHIFT is Present. LAB L100.2620 2.0-7.7 X10 3/uL Normal Absolute Neut 3.3 LAB L100.2720 0.83-4.51 X10 3/ul Normal Absolute Lymph 2.69 Performed By: #### L100.0100 #### [facility] [address] [place], [address] COMPREHENSIVE METABOLIC Collected: 10/29/2017 Status: F Source: [facility] 10:36 AM [facility] REPOSITORY TYPE CODE TESTS RESULT OUT OF RANGE REFERENCE UNITS LAB L501.0100 74-106 mg/dL Normal GLU 77 Result Comment: Please note revised GLUCOSE reference range effective 2017. LAB L501.1000 7-18 mg/dL Normal BUN 10 LAB L501.1100 0.55-1.02 mg/dL Normal CREAT,SERUM 0.74 Result Comment: The validity of the calculated GFR AND GFRAA in patients over 70 years has not been determined. Clinical correlation is essential. LAB L501.1110 >60 mL/min Normal EST GFR 91 Result Comment: Non- GFR Calc LAB L501.1115 >60 mL/min Normal EST GFR - AA 111 Result Comment: GFR Calc LAB L501.1255 ml/min Normal Estimated CRCL 99.90 LAB L501.1300 10-20 RATIO Normal BUN/CRE 13.6 LAB L501.1500 6.4-8. g/dL Normal 2 T PROT 6.8 LAB L501.1800 3.2-5. g/dL Normal 0 ALB 3.6 LAB L501.1950 2.2-4. g/dL Normal 2 GLOB 3.2 LAB L501.2000 0.9-2. RATIO Normal 4 A/G 1.1 LAB L501.2200 8.5-10 mg/dL Normal .1 CA 8.9 LAB L501.4100 15-37 U/L Normal AST 20 LAB L501.4305 45-117 U/L Normal ALK P 79 LAB L501.4405 13-56 U/L Normal ALT 17 LAB L501.4600 0.20-1 mg/dL Normal .00 T BILI 0.30 LAB L501.5300 136-14 mmol/L High 5 NA 146 LAB L501.5600 3.5-5. mmol/L Normal 1 K 4.1 LAB L501.5900 98-107 mmol/L High CL 114 LAB L501.6100 21.0-3 mmol/L Normal 2.0 CO2 28.0 LAB L501.6200 5-15 Low GAP 4 Performed By: #### L500.4050, L501.2450 #### [facility] [address] [place], [place], [address] LIPASE Collected: 10/29/2017 Status: F Source: [place] 10:36 AM [facility] REPOSITORY TYPE CODE TESTS RESULT OUT OF RANGE REFERENCE UNITS LAB L501.2450 73-393 U/L Normal LIPASE 342 Performed By: #### L500.4050, L501.2450 #### [facility] [address] [place], [address] ABDOMEN/PELVIS W IV CONT Observed: 10/29/2017 Status: F Source: [place] ONLY 10:27 AM [facility] REPOSITORY [facility] Imaging Services [address] [place] [address] Abdomen/Pelvis W IV Cont ONLY MR#: [id number] Acct: [id number] Name: LISS GUZMAN Rep #: [id number] : 1975 F 41 From: Almita Castanon MD PCP: Chavez Young DO Status: REG ER Study: Abdomen/Pelvis W IV Cont ONLY Date of Exam: 10/29/17 Exam# [id number] Ordering Dr: Sabas Bray MD STUDY: CT ABDOMEN AND PELVIS WITH CONTRAST REASON FOR EXAM: Female, 41 years old. LOW ABD PAIN RADIATING INTO BACK, N/V X 3 DAYS, FIBROMYALGIA, AUTOIMMUNE DZ, SURG-HYSTER RADIATION DOSAGE (If Supplied By Facility): CTDIvol = ( 15.02 ) mGy, DLP = ( 706.05 ) mGycm TECHNIQUE: Transaxial images were obtained from the dome of the diaphragm to the symphysis pubis without oral contrast. 100 ml of Isovue 300 contrast was administered. Sagittal and coronal images were reconstructed. Individualized dose optimization techniques were used for this CT. COMPARISON June 13, 2017 FINDINGS: The visualized lung bases are unremarkable. The visualized portions of the heart are within normal limits. Normal liver. Normal gallbladder and extrahepatic biliary system. Normal spleen. Normal pancreas. Normal bilateral adrenal glands. Normal right kidney. Normal left kidney. There is a small hiatal hernia. Normal small intestine. There are multiple colonic diverticula consistent with diverticulosis. The appendix is visualized and appears normal. Normal abdominal aorta. Normal inferior vena cava. Normal retroperitoneum. Normal urinary bladder. There has been a hysterectomy. There is a small umbilical hernia containing fat. There are mild degenerative changes of the visualized spine. CT/Abdomen/Pelvis W IV Cont ONLY IMPRESSION: There is a new small hiatal hernia. Other chronic findings. Electronically Signed: Almita Castanon MD at 12:19 EDT , Service support , CC: Chavez Young DO; Sabas Bray MD Divisional Storekeeper: Signed CBC Collected: 10/28/2017 Status: F Source: [facility] 7:39 PM [facility] REPOSITORY TYPE CODE TESTS RESULT OUT OF REFERENCE UNITS RANGE LAB WBC(LOINC) 4.60-10.80 10 3/mcL WBC 8.20 LAB RBCCT(LOINC 4.20-5.40 10 6/mcL ) Low RBC 3.57 LAB HGB(LOINC) 12.0-16.0 G/dL Low Hgb 11.4 LAB HCT(LOINC) 37.0-47.0 % Low Hct 31.7 LAB MCV(LOINC) 80.0-94.0 fL MCV 89.0 LAB MCH(LOINC) 27.0-31.2 pg High MCH 32.0 LAB MCHC(LOINC) 33.0-37.0 G/dL MCHC 36.0 LAB RDW(LOINC) 11.5-14.5 % RDW 12.3 LAB PLT(LOINC) 130-400 10 3/mcL Platelet 277 LAB MPV(LOINC) 7.4-10.4 fL MPV 8.7 Performed By: #### CBC, ADIFF, ANEU, GFR, CMP #### [place] [address] .AUTO DIFF Collected: 10/28/2017 Status: F Source: [facility] 7:39 [facility] REPOSITORY TYPE CODE TESTS RESULT OUT OF REFERENCE UNITS RANGE LAB SANDI(LOINC) 37.0-80.0 % Neutrophil % 47.8 LAB LYM(LOINC) 10.0-50.0 % Lymphocyte % 40.2 LAB MON(LOINC) 1.7-13.0 % Monocyte % 9.2 LAB EO(LOINC) 0.0-7.0 % Eosinophil % 2.4 LAB BAS(LOINC) 0.0-2.5 % Basophil % 0.4 LAB ABLYM(LOIN 0.77-3.85 10 3/mcL C) Lymphocyte, 3.30 Absolute LAB LINDA(LOINC 0.15-1.00 10 3/mcL ) Monocyte, 0.80 Absolute LAB AEOS(LOINC 0.00-0.40 10 3/mcL ) Eosinophil, 0.20 Absolute LAB ABAS(LOINC 0.00-0.19 10 3/mcL ) Basophil, 0.00 Absolute Performed By: #### CBC, ADIFF, ANEU, GFR, CMP #### [address] [address] .NEUABS Collected: 10/28/2017 Status: F Source: [facility] 7:39 PM [facility] REPOSITORY TYPE CODE TESTS RESULT OUT OF REFERENCE UNITS RANGE LAB ANEU(LOINC) 2.85-6.16 10 3/mcL Neutrophil, 3.90 Absolute Performed By: #### CBC, ADIFF, ANEU, GFR, CMP #### [place] [address] [place], [place] [address] .GFR Collected: 10/28/2017 Status: F Source: [facility] 7:39 [facility] REPOSITORY TYPE CODE TESTS RESULT OUT OF REFERENCE UNITS RANGE LAB GFRAA(LOINC ml/min/1.73 ) sqm GFR 103 Ugandan Result Comment: GFR Population mean for , Non- Americans Ages 20-29 = 116 mL/min/1.73 sq.m. Ages 30-39 = 107 mL/min/1.73 sq.m. Ages 40-49 = 99 mL/min/1.73 sq.m. Ages 50-59 = 93 mL/min/1.73 sq.m. Ages 60-69 = 85 mL/min/1.73 sq.m. Ages 70+ = 75 mL/min/1.73 sq.m. Chronic Kidney Disease: Less than 60 mL/min/1.73 square meters End Stage Renal Disease: Less than 15 mL/min/1.73 square meters LAB GFRNO(LOINC) ml/min/1.73sqm GFR Non- >60 Result Comment: GFR Population mean for , Non- Americans Ages 20-29 = 116 mL/min/1.73 sq.m. Ages 30-39 = 107 mL/min/1.73 sq.m. Ages 40-49 = 99 mL/min/1.73 sq.m. Ages 50-59 = 93 mL/min/1.73 sq.m. Ages 60-69 = 85 mL/min/1.73 sq.m. Ages 70+ = 75 mL/min/1.73 sq.m. Chronic Kidney Disease: Less than 60 mL/min/1.73 square meters End Stage Renal Disease: Less than 15 mL/min/1.73 square meters Performed By: #### CBC, ADIFF, ANEU, GFR, CMP #### [place] [address] [place], [place] [address] CMP Collected: 10/28/2017 Status: F Source: [facility] 7:39 PM [facility] REPOSITORY TYPE CODE TESTS RESULT OUT OF REFERENCE UNITS RANGE LAB 1547-9 70-105 mg/dL GLUCOSE High 123 LAB NA(LOINC) 136-146 mEq/L Sodium Level 142 LAB K(LOINC) 3.5-5.1 mEq/L Potassium Level 3.6 LAB CL(LOINC) 98-107 mEq/L Chloride High 109 LAB CO2(LOINC) 22-29 mEq/L CO2 26 LAB EBAL(LOINC mEq/L ) Electrolyte Balance 7.0 LAB BUN(LOINC) 7.0-18.0 mg/dL BUN 10.2 LAB CRE(LOINC) 0.6-1.2 mg/dL Creatinine Lvl (s) 0.7 LAB BC(LOINC) 7-27 ratio BUN/Creatinine 15 Ratio LAB CA(LOINC) 8.4-10.2 mg/dL Calcium Lvl 9.3 LAB PROT(LOINC 6.0-8.3 G/dL ) Total Protein 6.1 LAB ALB(LOINC) 3.5-5.0 G/dL Albumin Level 4.0 LAB GLB(LOINC) G/dL Globulin 2.1 LAB AG(LOINC) 1.1-2.5 ratio A/G Ratio 1.9 LAB BILT(LOINC 0.2-1.0 mg/dL ) Bili Total 0.2 LAB AP(LOINC) 40-135 IU/L Alk Phos 75 LAB AST(LOINC) 10-40 IU/L AST/SGOT 20 LAB ALT(LOINC) 10-35 IU/L ALT/SGPT 11 Performed By: #### CBC, ADIFF, ANEU, GFR, CMP #### [place] [address] [place], [place] [address] UA Collected: 10/28/2017 Status: F Source: [facility] 7:39 PM [facility] REPOSITORY TYPE CODE TESTS RESULT OUT OF REFERENCE UNITS RANGE LAB SPCUA(LOIN C) UA Specimen Type Void LAB CLRUA(LOIN C) UA Color YELLOW LAB APPUA(LOIN C) UA Appear CLEAR LAB SGUA(LOINC ) UA Spec Grav 1.020 LAB GLUA(LOINC mg/dL ) UA Glucose NEGATIVE LAB BILUA(LOIN C) UA Bili LARGE LAB KETUA(LOIN mg/dL C) UA Ketones NEGATIVE LAB BLDUA(LOIN C) UA Blood NEGATIVE LAB PHUA(LOINC ) UA pH 5.5 LAB PROUA(LOIN mg/dL C) UA Protein NEGATIVE LAB UROUA(LOIN E.U./dL C) UA Urobilinogen 0.2 LAB NITUA(LOIN C) UA Nitrite NEGATIVE LAB LEUUA(LOIN C) UA Leuk Est TRACE Performed By: #### UA, UAMICAO #### [address] [address] .URINALYSIS MICROSCOPIC Collected: 10/28/2017 Status: F Source: [place] () 7:39 PM [facility] REPOSITORY TYPE CODE TESTS RESULT OUT OF RANGE REFERENCE UNITS LAB WBCUA(LOIN None Seen /hpf C) Unknown UA WBC 0-5 LAB RBCUA(LOIN None Seen /hpf C) UA RBC None Seen LAB EPIUA(LOIN None Seen /hpf C) Unknown UA Squam Epithelial 5-10 Performed By: #### UA, UAMICAO #### [address] [address] URINALYSIS, ROUTINE Collected: 10/02/2017 Status: F Source: [place] (DIPSTICK) 10:30 AM [facility] REPOSITORY Order Comment: How was Urine Obtained? CLEAN CATCH TYPE CODE TESTS RESULT OUT OF RANGE REFERENCE UNITS LAB L400.3000 Yellow COLOR Normal Yellow LAB L400.3050 Clear Normal CLARITY Clear LAB L400.3200 Normal mg/dl Normal GLUCOSE, UR Normal LAB L400.3300 Negative mg/dL High BILIRUBIN URINE 1 Result Comment: COLOR OF URINE MAY AFFECT DIPSTICK RESULTS. LAB L400.3400 Negative mg/dl Normal KETONE UR Negative LAB L400.3465 1.002-1.030 Normal SP.GR. DIPSTX 1.025 LAB L400.3550 5.0 - 8.0 pH Normal UR 5.0 LAB L400.3600 Negative mg/dl High PROT DIPSTX 15 LAB L400.3700 Normal mg/dl High UROBILI 1 LAB L400.3750 Negative Normal NITRITE UR Negative LAB L400.3780 Negative /ul Normal OCCULT Negative BLOOD-UR LAB L400.3800 Negative /ul High LEUK ESTERASE 25 Performed By: #### L400.2010 #### [facility] [address] [place], [address] PROTEIN+CREATININE Collected: Status: F Source: [place] RATIO,URINE 10/02/2017 10:30 AM [facility] REPOSITORY TYPE CODE TESTS RESULT OUT OF RANGE REFERENCE UNITS LAB L501.1200 NO RANGE EST. mg/dL Normal UR CREAT 197.00 LAB L501.1930 <11.9 mg/dL High 28.6 PROTEIN,UR.R AN. LAB L501.1940 0-200 mg/g CRE Normal PROT:CRE 145 RATIO Performed By: #### L501.0900 #### [facility] [address] [place], [address] ERYTHROCYTE SED RATE Collected: 10/02/2017 Status: F Source: [place] 10:30 AM [facility] REPOSITORY TYPE CODE TESTS RESULT OUT OF RANGE REFERENCE UNITS LAB L102.0000 0-20 mm/hr Normal SED RATE < 1 Performed By: #### L101.9900, L100.0100 #### [facility] [address] [facility] [place], [address] CBC W/DIFF, AUTOMATED Collected: 10/02/2017 Status: F Source: [place] 10:30 AM [facility] REPOSITORY TYPE CODE TESTS RESULT OUT OF RANGE REFERENCE UNITS LAB L100.1000 4.4-11.0 K/mm3 Normal WBC 7.5 LAB L100.1200 4.2-5.4 M/mm3 Low RBC 3.97 LAB L100.1300 12.0-15.0 g/dl Normal HGB 12.4 LAB L100.1400 37-47 % Low HCT 35.7 LAB L100.1500 81-99 fL Normal MCV 89.9 LAB L100.1600 27.0-32.0 pg Normal MCH 31.2 LAB L100.1700 32-36 g/gl Normal MCHC 34.7 LAB L100.1810 11.6-14.6 % Normal RDW CV 11.6 LAB L100.1820 35.1-43.9 fl Normal RDW SD 36.7 LAB L100.1900 150-450 K/mm3 Normal PLT 263 LAB L100.2000 6.2-12.0 fl Normal MPV 11.8 LAB L100.2100 47-70 % Low NEUT% 41.1 LAB L100.2200 19-41 % High LY% 45.9 LAB L100.2300 0-10 % High MONO% 10.9 LAB L100.2400 0-5 % Normal EO% 1.7 LAB L100.2500 0-1 % Normal BASO% 0.3 LAB L100.2550 0.0-0.9 % Normal IM GRAN % 0.100 Result Comment: IG% - Immature Granulocytes (promyelocytes, myelocytes and metamyelocytes) > 1% indicates that a LEFT SHIFT is Present. LAB L100.2620 2.0-7.7 X10 3/uL Normal Absolute Neut 3.1 LAB L100.2720 0.83-4.51 X10 3/ul Normal Absolute Lymph 3.42 Performed By: #### L101.9900, L100.0100 #### [facility] [address] [place] [address]. [place], [place], [address] COMPREHENSIVE METABOLIC Collected: 10/02/2017 Status: F Source: [facility] 10:30 AM [facility] REPOSITORY TYPE CODE TESTS RESULT OUT OF RANGE REFERENCE UNITS LAB L501.0100 74-106 mg/dL Low GLU 72 Result Comment: Please note revised GLUCOSE reference range effective 2017. LAB L501.1000 7-18 mg/dL Normal BUN 13 LAB L501.1100 0.55-1.02 mg/dL Normal CREAT,SERUM 0.98 Result Comment: The validity of the calculated GFR AND GFRAA in patients over 70 years has not been determined. Clinical correlation is essential. LAB L501.1110 >60 mL/min Normal EST GFR 66 Result Comment: Non- GFR Calc LAB L501.1115 >60 mL/min Normal EST GFR - AA 80 Result Comment: GFR Calc LAB L501.1300 10-20 RATIO Normal BUN/CRE 13.3 LAB L501.1500 6.4-8.2 g/dL T Normal PROT 7.8 LAB L501.1800 3.2-5.0 g/dL Normal ALB 4.4 LAB L501.1950 2.2-4.2 g/dL Normal GLOB 3.4 LAB L501.2000 0.9-2.4 RATIO Normal A/G 1.3 LAB L501.2200 8.5-10.1 mg/dL CA Normal 8.7 LAB L501.4100 15-37 U/L Normal AST 20 LAB L501.4305 45-117 U/L Normal ALK P 82 LAB L501.4405 13-56 U/L Normal ALT 18 Result Comment: Please note revised ALT reference range effective 2017. LAB L501.4600 0.20-1.00 mg/dL Normal T BILI 0.40 LAB L501.5300 136-145 mmol/L Normal NA 141 LAB L501.5600 3.5-5.1 mmol/L Normal K 3.7 LAB L501.5900 98-107 mmol/L High CL 108 LAB L501.6100 21.0-32.0 mmol/L Normal CO2 27.0 LAB L501.6200 5-15 Normal GAP 6 Performed By: #### L500.4050, L501.6710, L505.7010 #### [facility] [address] [place], [address] CRP Collected: 10/02/2017 Status: F Source: [place] 10:30 AM [facility] REPOSITORY TYPE CODE TESTS RESULT OUT OF RANGE REFERENCE UNITS LAB L501.6710 0.0-3.0 mg/L Normal < 2.90 C-REACTIVE PROT Result Comment: C-Reactive Protein (CRP) provides useful information for the diagnosis, therapy and monitoring of inflammatory processes and associated diseases. For the evaluation of Relative Risk for Cardiovascular Disease, a High Sensitivity CRP (HSCRP) should be ordered. Performed By: #### L500.4050, L501.6710, L505.7010 #### [facility] [address] [place], [place], [address] RHEUMATOID FACTOR Collected: 10/02/2017 Status: F Source: [place] 10:30 AM [facility] REPOSITORY TYPE CODE TESTS RESULT OUT OF RANGE REFERENCE UNITS LAB L505.7010 <15 IU/mL Normal RHEUMATOID FAC < 10.0 Performed By: #### L500.4050, L501.6710, L505.7010 #### [facility] [address] [place], [place], [address] HEPATITIS B SURFACE Collected: 10/02/2017 Status: F Source: [place] AG 10:30 AM [facility] REPOSITORY TYPE CODE TESTS RESULT OUT OF RANGE REFERENCE UNITS LAB L3100.0400 Negative Normal HB Negative SURF AG Result Comment: Performed at: [facility] [address] [id number] Paper Bag Machine Operator: Lucas Marcus PhD, Phone: [phone] Performed at: [address] [place] [id number] Paper Bag Machine Operator: Jude Andre PhD, Phone: [phone] Performed at: [address] [id number] Paper Bag Machine Operator: Manas Shankar MD, Phone: [phone] Performed By: #### L3100.0390, L3100.0528, L3100.0625, L3100.5700, L3100.5800, L3410.1400, L4600.0100 #### [facility] (refer to report for specific site) refer to report for address and phone number HEP B SURFACE Collected: 10/02/2017 Status: F Source: [place] ANTIBODIES 10:30 AM [facility] REPOSITORY TYPE CODE TESTS RESULT OUT OF RANGE REFERENCE UNITS LAB L3100.0528 . Normal Hep B Reactive Julia AB Result Comment: Non Reactive: Inconsistent with immunity, less than 10 mIU/mL Reactive: Consistent with immunity, greater than 9.9 mIU/mL Performed By: #### L3100.0390, L3100.0528, L3100.0625, L3100.5700, L3100.5800, L3410.1400, L4600.0100 #### [facility] (refer to report for specific site) refer to report for address and phone number HEPATITIS C ANTIBODIES Collected: 10/02/2017 Status: F Source: [place] 10:30 AM [facility] REPOSITORY TYPE CODE TESTS RESULT OUT OF RANGE REFERENCE UNITS LAB L3100.0650 0.0-0.9 s/co ratio Normal HEP C AB 0.1 Result Comment: Negative: < 0.8 Indeterminate: 0.8 - 0.9 Positive: > 0.9 The CDC recommends that a positive HCV antibody result be followed up with a HCV Nucleic Acid Amplification test (475840). Performed By: #### L3100.0390, L3100.0528, L3100.0625, L3100.5700, L3100.5800, L3410.1400, L4600.0100 #### [facility] (refer to report for specific site) refer to report for address and phone number COMPLEMENT C3 Collected: 10/02/2017 Status: F Source: [place] 10:30 AM [facility] REPOSITORY TYPE CODE TESTS RESULT OUT OF RANGE REFERENCE UNITS LAB L3100.5700 82-167 mg/dL Normal COMP C3 104 Performed By: #### L3100.0390, L3100.0528, L3100.0625, L3100.5700, L3100.5800, L3410.1400, L4600.0100 #### [facility] (refer to report for specific site) refer to report for address and phone number COMPLEMENT C4 Collected: 10/02/2017 Status: F Source: [place] 10:30 AM [facility] REPOSITORY TYPE CODE TESTS RESULT OUT OF RANGE REFERENCE UNITS LAB L3100.5800 14-44 mg/dL Low COMP C4 12 Performed By: #### L3100.0390, L3100.0528, L3100.0625, L3100.5700, L3100.5800, L3410.1400, L4600.0100 #### [facility] (refer to report for specific site) refer to report for address and phone number HLA B27 Collected: 10/02/2017 Status: F Source: [place] 10:30 AM [facility] REPOSITORY TYPE CODE TESTS RESULT OUT OF RANGE REFERENCE UNITS LAB L3410.1500 . Normal HLA Negative B27 Result Comment: HLA-B*27 Negative B27 allele interpretation for all loci based on IMGT/HLA database version 3.27 This test was developed and its performance characteristics determined by [facility]. It has not been cleared or approved by the Food and Drug Administration. [facility] CLIA ID Number [id number] This test was performed using PCR (Polymerase Chain Reaction)/SSOP (Sequence Specific Oligonucleotide Probes) technique. SBT (Sequence Based Typing) and/or SSP (Sequence Specific Primers) may be used as supplemental methods when necessary. Please contact [facility] Customer Service at if you have any questions. Director of [facility] Laboratory Dr Jude Andre, PhD Performed By: #### L3100.0390, L3100.0528, L3100.0625, L3100.5700, L3100.5800, L3410.1400, L4600.0100 #### [facility] (refer to report for specific site) refer to report for address and phone number CCP IGG ANTIBODIES Collected: 10/02/2017 Status: F Source: [place] 10:30 AM [facility] REPOSITORY TYPE CODE TESTS RESULT OUT OF RANGE REFERENCE UNITS LAB L4600.0100 0-19 units Normal ANTI-CCP 1 [id number] Result Comment: Negative <20 Weak positive 20 - 39 Moderate positive 40 - 59 Strong positive >59 Performed By: #### L3100.0390, L3100.0528, L3100.0625, L3100.5700, L3100.5800, L3410.1400, L4600.0100 #### [facility] (refer to report for specific site) refer to report for address and phone number PELVIS 1 OR 2 VIEWS Observed: 10/02/2017 Status: F Source: [place] 10:26 AM [facility] REPOSITORY [facility] [address] [place] [address] Pelvis 1 or 2 Views MR#: [id number] Acct: [id number] Name: LISS GUZMAN Rep #: [id number] : 1975 F 41 From: Andrade Forrest MD PCP: Chavez Young DO Status: REG CLI Study: Pelvis 1 or 2 Views Date of Exam: 10/02/17 Exam# [id number] Ordering Dr: Nel Harvey MD STUDY: X-RAY - PELVIS REASON FOR EXAM: Female, 41 years old. Acute pain TECHNIQUE: One view of the pelvis was obtained. COMPARISON: None. FINDINGS: There is a non-specific bowel gas pattern. Normal visualized soft tissue structures. Normal bilateral iliac wings, sacroiliac joints and visualized sacrum. Normal visualized bilateral superior and inferior pubic rami. Normal pubic symphysis. Normal ischial tuberosities. Normal visualized right femoral head. Normal right acetabulum. Normal right hip joint. Normal visualized left femoral head. Normal left acetabulum. Normal left hip joint. RAD/Pelvis 1 or 2 Views IMPRESSION: Normal x-ray examination of the pelvis. Electronically Signed: Holger Forrest MD at 10:37 EDT , Service support , CC: Chavez Young DO; Nel Harvey MD Divisional Storekeeper: Signed ALLERGIES ALLERGIES DATE TYPE / CODE NAME / CODE REACTION SEVERITY SOURCE 06/07/2018 Drug diphenhydram Unknown Unknown [facility] Allergy/4160 ine/L6846000 [facility] 30995(SNOMED 87(RXNORM) Repository CT) ENCOUNTERS ENCOUNTERS ADMIT/DISCHARGE ACCOUNT NUMBER ADMITTING ENCOUNTER LOCATION SOURCE CLASS 06/15/2018 [id number] Ambulatory [facility] Repository ng:HLiliBERNARDINO 06/07/2018/06/07/20 [id number] Emergency [address] ding:ED Repository 06/05/2018/06/05/20 [id number] Emergency [address] ding:ED Repository 04/22/2018 [id number] Emergency [address] [place] [address] EDRoom: System 444Bed: Repository [id number] 04/18/2018/04/20/20 [id number] White, Inpatient Isabelle Isabelle [address] [facility] ding:ZY4Lbeh Repository : [id number]: 1 04/18/2018 [id number] White, Ambulatory BMSBuilding: Isabelle Barbara BMS.[facility] Repository 04/18/2018 [id number] White, Ambulatory BMSBuilding: [place] Barbara BMS.[facility] Repository 04/18/2018 [id number] [place], Ambulatory BMSBuilding: [place] Barbara BMS.[facility] Repository 04/15/2018/04/15/20 [id number] Emergency BBuilding:ER [address] Repository 03/23/2018/03/23/20 [id number] Emergency BBuilding:ER [address] Repository 02/25/2018/02/26/20 [id number] Emergency BBuilding:ER [address] Repository 11/23/2017/11/25/19 [id number] Linda Ramos Inpatient [address] Repository ng:H.7MRoom: [id number]: 11/22/2017/11/23/19 [id number] Emergency [address] ding:ED Repository 10/29/2017/10/30/19 [id number] Emergency [address] ding:ED Repository 10/28/2017/10/29/19 [id number] Emergency BBuilding:ER [address] Repository 10/02/2017 [id number] Ambulatory [facility] ding:MTLAB Repository PAYERS PAYERS ENCOUNTER GUARANTOR PAYER SUBSCRIBER SOURCE 06/15/2018 LISS o[place] [address] Insurance:MEDICAID OF [facility] Number: Repository [place], [place] [id number]: 330) Date:6425-47-63ZV [phone] () [place] [address]BR: 06/07/2018 LISS DAUGHERTY M Isabelle [id number] Insurance:MEDICAIDPol [facility]SD[facility] Number: [id number] [place], [place] [id number] Repository [address]Igc: ([phone]) Date:2018-06-07 [phone] (HP) 06/07/2018 Secondary NOT GIVENUNK [place] Insurance:SELF PAY [facility] Number: Effective Repository Date:2018-06-07 06/05/2018 LISS Bowen Primary LISS Bryanoster [id number] Insurance:MEDICAIDPol COLLINSDOB[facility] Number: [id number] [id number] Repository [address]Vkx: ([phone]) Date:2018-06-05 [phone] (HP) 06/05/2018 Secondary NOT GIVENUNK [place] Insurance:SELF PAY [facility] Number: Effective Repository Date:2018-06-05 04/22/2018 Liss Bowen Primary Liss Bowen [facility] CollinsDOB: Insurance:MedicaidPol CollinsDOB: System icy Number: Effective [id number] Repository [address]ate[address] Date: [place], [place] [address]Yop: (HP) 04/18/2018 LISS Bowen Primary LISS Walton [id number] Insurance:MEDICAIDPol COLLINSDOB: [facility] icy Number: [id number], [place] [id number] Repository [address]Gqt: (330) Date:2018-04-18 [phone] (HP) 04/18/2018 Secondary NOT GIVENUNK [place] Insurance:SELF PAY [facility] Number: Effective Repository Date:2018-04-18 04/18/2018 LISS Bowen Primary LISS [place] [id number] Insurance:MEDICAIDPol COLLINSDOB: [facility] icy Number: [id number] [place], [place] [id number] Repository [address]Hzg: (330) Date:2018-04-18 [phone] (HP) 04/18/2018 Secondary NOT GIVENUNK [place] Insurance:SELF PAY [facility] INSURANCEPolicy Hospital Number: Effective Repository Date:2018-04-18 04/18/2018 LISS Bryanoster [id number] Insurance:MEDICAIDPol COLLINSDOB: [facility] KAROLINEEAU ic Number: [id number] [place], [place] [id number] Repository [address]Qms: (330) Date:2018-04-18 [phone] () 04/18/2018 Secondary NOT GIVENUNK [place] Insurance:SELF PAY [facility] Number: Effective Repository Date:2018-04-18 04/18/2018 LISS Bowen Primary LISS [place] [id number] Insurance:MEDICAIDPol COLLINSDOB: [facility] Number: [id number] [place], [place] [id number] Repository [address]Rjz: (330) Date:2018-04-18 [phone] (HP) 04/18/2018 Secondary NOT GIVENUNK [place] Insurance:SELF PAY [facility] Number: Effective Repository Date:2018-04-18 04/15/2018 [facility]SELF COLLINSDOB: [facility] PAYPolicy Number: [id number] Repository [place], [place] Date:2018-04-15 - [place], [place] [address]Jzg: [phone] [id number] Name:[id number] [id number]: [phone] ()Tel: [phone]) (HP) (WP) [phone] (WP) 03/23/2018 [facility]ISS [facility]:SELF COLLINSDOB: [facility] PAYPolicy Number: [id number] Repository [place], [place] Date:2018-03-23 - [place], [place] [address]Nfl: [phone] Name:[id number]: [phone] (HP)Tel: [phone]) (HP) (WP) [phone] (WP) 02/25/2018 LISS Bowen Primary LISS Bowen [facility] COLLINSDOB: [facility] Number: [id number] [facility] [id number] [place], [place] Date:2018-02-25 - [place], [place] [address]Mls: [phone] [phone]: Name:SENIOR COST ACCOUNTANT [phone] (HP)Tel: [phone] [address] [place] [address] () (WP) [place] [phone]: [phone] (WP) 11/23/2017 LISS Bowen Primary LISS Bowen [facility] [id number] Insurance:[place], [place] RESOURCESPolic [address]Zjh: (077) Number: [phone] (HP) [id number] Date:4176-46-23OY [address] [place] [address]: 11/22/2017 LISS Rey Primary Insurance:UMR LISS GUZMAN219 VARUN [address]Ktcira COLLINSDOB: [facility] Number: [id number] [place], [place] [id number] Repository [address]Egh: 330) Date:0231-48-70TH [phone] () [address] [place] [address]DX: 11/22/2017 Secondary NOT GIVENUNK [place] Insurance:SELF PAY [facility] Number: Effective Repository Date:2017-11-22 10/29/2017 LISS Bowen Primary Insurance:UM[employer] LISS Walton [id number] N VARUN [id number] COLLINSDOB: Critical [facility] hospital [facility], Number: [id number] [address]Wuc: [id number] Repository Date:[id number] [address] () [place] [address]QE: 10/29/2017 Secondary NOT GIVENUNK Isabelle Insurance:SELF PAY [facility] Number: Effective Repository Date:2017-10-29 10/28/2017 LISS Bowen Primary LISS Jessi [facility] COLLINSDOB: Insurance:UMRPolicy COLLINSDOB: [facility] Number: [id number] [facility] [id number] [place] Date:2017-01-21 - [place], [place] [address]Jrm: [phone]: Name:[facility] [phone] ()Tel: [phone] [place] [address] () () [place] [address]MV: [phone] (WP) 10/02/2017 LISS Bowen Primary Insurance:UMR LISS Walton [id number] N [address] [id number] Medical CenterB: [facility], Number: [id number] [id number]: [id number] Repository Date:[id number] [address] () [address] [place] [id number]: 10/02/2017 Secondary NOT GIVENUNK Isabelle Insurance:SELF PAY [facility] Number: Effective Repository Date:2017-10-02
== END 2018-06-05 11:33 | disposition home or self-care (01) ==
LOC: ED 11:18
PROVIDERS: Emergency Provider Emergency Medicine; Family Provider Family Medicine; PCP Family Medicine
DX: J40 Bronchitis, not specified as acute or chronic (principal); Z72.0 Tobacco use
CPT/HCPCS: 99283

== ENCOUNTER 2018-06-07 07:34 | Emergency (ER) | payer MEDICAID, SELFPAY ==
[2018-06-07 07:35] VITALS: BP 119/86; PULSE 96; RESP 18; TEMP 36.6; O2SAT 98; BMI 24.3
--- NOTE | 2018-06-07 08:06 | RAD_ITS ---
STUDY: X-RAY CHEST REASON FOR EXAM: Female, 42 years old. Cough. TECHNIQUE: Single AP portable view of the chest. COMPARISON: None. FINDINGS: The lungs are clear and expanded. There is no demonstrated pleural abnormality. Normal size heart. Normal mediastinum and promise. Normal visualized pulmonary arteries. Normal visualized aortic arch and descending thoracic aorta. Normal visualized thoracic spine. Normal visualized ribs, clavicles, and shoulders. There is no demonstrated abnormality of the visualized soft tissue structures of the upper abdomen. RAD/Chest 1 View (Portable) IMPRESSION: Normal x-ray examination of the chest. Electronically Signed: Jose Campo MD at 8:49 EST Tel [phone], Service support ,
--- NOTE | 2018-06-07 08:08 | EKG12_ITS ---
Test Reason : DYSRHYTHMIA Blood Pressure : / mmHG Vent. Rate : 077 BPM Atrial Rate : 077 BPM P-R Int : 146 ms QRS Dur : 080 ms QT Int : 368 ms P-R-T Axes : 061 043 047 degrees QTc Int : 416 ms Normal sinus rhythm Normal ECG Confirmed by BAY ANEN, SHANNON ([id number]), scientific editor ASHA MOCTEZUMA ([id number] on 06/12/2018 2:17:02 PM Referred By: CINDI Confirmed By:SHANNON HERMOSILLO MD
--- NOTE | 2018-06-07 08:15 | ED.VISSUMM ---
- ER Visit Summary Date of Service: 06/07/18 Chief Complaint: Detox from opioids History of Present Illness: The patient is a 42 F who is requesting opioid detox. She has a history of opioid abuse and has been using Vicodin daily for the past month. She stopped about 3 days ago, and she is having withdrawal symptoms. She says that she was using 3 tablets at a time, multiple times per day. She was taking Percocet occasionally. She denies any IV opioid use. She uses benzodiazepines occasionally, but not daily or regularly. She denies alcohol use. She was admitted to [facility] for 2 days in April of this year. She was subsequently admitted at [facility] for what she describes as anxiety. She said she was not treated for detox or withdrawal at that time. She has had increasing cough and congestion since she stopped Vicodin this week, and was seen in this emergency department earlier this week for bronchitis symptoms. She reports nausea, vomiting, decreased sleep, decreased PO intake, cough, aches. Patient has a history of a complete hysterectomy. Physical Examination: Heart rate 96, otherwise vitals unremarkable. Lungs clear throughout. Abdomen soft. Skin appears slightly pale but otherwise normal. She is alert and oriented. Depressed mood and flat affect. Test Results: EKG, chest x-ray, labs, drug screen pending Emergency Department Course and Treatment: Patient has a COWS score of 19. [facility] was contacted and they will evaluate the patient. Medical clearance is underway. Patient's workup was unremarkable. Her tox screen did test positive for opioids, MDMA, and benzodiazepines. Her chest x-ray was unremarkable. Blood counts normal. Everything else unremarkable. I did speak with the [facility] contact manager. The patient does not have active Medicaid and cannot be admitted. There is no indication for a medical admission. Patient will be referred to [facility] for outpatient follow-up. Treatment Plan: As above Disposition: Discharge Impression: 1. Opioid withdrawal 2. Acute bronchitis This note was generated with [employer] dictation software. It may contain incorrect words, spelling, and punctuation that were not noted in review of the chart prior to signing ED Disposition - Plan for ED Patient: Chief Complaint: Substance Abuse Referrals: Miguel A Young DO [Primary Care Provider] -
--- NOTE | 2018-06-07 08:24 | ED.DCSUM_ITS ---
- ER Visit Summary Date of Service: 06/07/18 Chief Complaint: Detox from opioids History of Present Illness: The patient is a 42 F who is requesting opioid detox. She has a history of opioid abuse and has been using Vicodin daily for the past month. She stopped about 3 days ago, and she is having withdrawal symptoms. She says that she was using 3 tablets at a time, multiple times per day. She was taking Percocet occasionally. She denies any IV opioid use. She uses benzodiazepines occasionally, but not daily or regularly. She denies alcohol use. She was admitted to [facility] for 2 days in April of this year. She was subsequently admitted at [facility] for what she describes as anxiety. She said she was not treated for detox or withdrawal at that time. She has had increasing cough and congestion since she stopped Vicodin this week, and was seen in this emergency department earlier this week for bronchitis symptoms. She reports nausea, vomiting, decreased sleep, decreased PO intake, cough, aches. Patient has a history of a complete hysterectomy. Physical Examination: Heart rate 96, otherwise vitals unremarkable. Lungs clear throughout. Abdomen soft. Skin appears slightly pale but otherwise normal. She is alert and oriented. Depressed mood and flat affect. Test Results: EKG, chest x-ray, labs, drug screen pending Emergency Department Course and Treatment: Patient has a COWS score of 19. [facility] was contacted and they will evaluate the patient. Medical clearance is underway. Patient's workup was unremarkable. Her tox screen did test positive for opioids, MDMA, and benzodiazepines. Her chest x-ray was unremarkable. Blood counts normal. Everything else unremarkable. I did speak with the [facility] continuity person. The patient does not have active Medicaid and cannot be admitted. There is no indication for a medical admission. Patient will be referred to [facility] for outpatient follow-up. Treatment Plan: As above Disposition: Discharge Impression: 1. Opioid withdrawal 2. Acute bronchitis This note was generated with [employer] dictation software. It may contain incorrect words, spelling, and punctuation that were not noted in review of the chart prior to signing ED Disposition - Plan for ED Patient: Chief Complaint: Substance Abuse Referrals: Miguel A Young DO [Primary Care Provider] -
[2018-06-07 08:29] LABS: Absolute Lymphocyte Count 2.06 X10^3/ul (0.83-4.51); Absolute Neutrophil Count 5.7 X10^3/uL (2.0-7.7); Basophil# 0.01 X10^3/uL; Basophil% 0.1 % (0-1); Eosinophil# 0.08 X10^3/uL; Eosinophils% 0.9 % (0-5); Hematocrit 38.4 % (37-47); Hemoglobin 13.4 g/dl (12.0-15.0); Lymphocyte # 2.06 X10^3/ul (4.0); Lymphocyte % 24.1 % (19-41); Mean Corp Hgb Conc 34.9 g/gl (32-36); Mean Corpuscular Hgb 32.2 pg (27.0-32.0); Mean Corpuscular Volume 92.3 fL (81-99); Monocyte# 0.68 X10^3/uL; Neutrophil # 5.65 X10^3/uL (2.7-7.7); Neutrophil % 66.1 % (47-70); Platelet Count 278 K/mm3 (150-450); RBC Distribution Width CV 11.6 % (11.6-14.6); RBC Distribution Width SD 38.7 fl (35.1-43.9); Red Blood Count 4.16 M/mm3 (4.2-5.4); White Blood Count 8.6 K/mm3 (4.4-11.0)
[2018-06-07 08:31] LABS: POSITIVE COUNT NO; POSITIVE DIFFERENTIAL NO; POSITIVE MORPHOLOGY NO
[2018-06-07] MEDS: Ondansetron ODT 4 MG Tablet PO (08:38)
[2018-06-07 08:41] LABS: Amphetamine Urine VISTA NEGATIVE (<1000 ng/mL); Barbiturate Urine VISTA NEGATIVE (< 200 ng/mL); Benzodiazepine Urine VISTA POSITIVE (< 200 ng/mL); Cocaine Urine VISTA NEGATIVE (< 300 ng/mL); Ecstacy Urine VISTA POSITIVE (< 500 ng/mL); Methadone Urine VISTA NEGATIVE (< 300 ng/mL); PCP Urine VISTA NEGATIVE (< 25 ng/mL); THC Urine VISTA NEGATIVE (< 50 ng/mL); Vista UDS pH Range 5
[2018-06-07 08:45] LABS: ALB/GLOB Ratio 1.1 RATIO (0.9-2.4); AST(SGOT) 17 U/L (15-37); Alanine Aminotransfer ALT/SGPT 20 U/L (13-56); Albumin, Serum 3.9 g/dL (3.2-5.0); Alkaline Phosphatase 96 U/L (45-117); Anion Gap 7 (5-15); BUN 13 mg/dL (7-18); BUN/Creat Ratio 16.8 RATIO (10-20); Calcium,Total 8.9 mg/dL (8.5-10.1); Chloride 107 mmol/L (98-107); Creatinine, Serum 0.77 mg/dL (0.55-1.02); EST Glomerular Filtration Rate 87 mL/min (>60); Est Glom Filt Rate - Afr Amer 105 mL/min (>60); Estimated Creatinine Clearance 95.03 ml/min; Globulin 3.7 g/dL (2.2-4.2); Glucose 117 mg/dL (74-106); Potassium 3.7 mmol/L (3.5-5.1); Protein, Total 7.6 g/dL (6.4-8.2); Sodium Level 139 mmol/L (136-145)
[2018-06-07 09:08] LABS: Alcohol, Blood (Medical)-Serum < 3.0 mg/dL
[2018-06-07 09:13] LABS: Acetaminophen (Tylenol) Level < 2.0 ug/mL (10.0-30.0); Salicylate 4.1 mg/dL (2.8-20.0)
--- NOTE | 2018-06-07 09:47 | ED.DEP ---
ED Disposition - Plan for ED Patient: Chief Complaint: Substance Abuse Instructions: ED Withdrawal Narcotic Prescriptions: Ondansetron [Zofran Odt] 4 mg PO Q8H PRN PRN #10 tab PRN Reason: Nausea Doxycycline Monohydrate 100 mg PO BID #14 cap Referrals: EIGHTY,ONE [STAFF PHYSICIAN] -
[2018-06-07 10:11] VITALS: BP 134/77; PULSE 61; RESP 15; O2SAT 98
--- OUTSIDE RECORDS SUMMARY | 2018-08-02 07:58 | XMS RPT_ITS ---
:1975 Author Organization [place] Support Name Relationship Address Phone [facility] Unavailable [address] + [place] [address] MARIA L MARKHAM Unavailable Unavailable + [place] [address] [facility] Unavailable [address] + [place] [address] ELEUTERIO MILLER Unavailable [address] + [place] [address] Eleuterio Dong Unavailable Unavailable + ELEUTERIO MILLER Unavailable Unavailable + NARESH Unavailable [address] [facility] + [place] [address] ELEUTERIO MILLER Unavailable Unavailable + NARESH Unavailable [address] [facility] + [place] [address] ELEUTERIO MILLER Unavailable Unavailable + NARESH Unavailable [address] [facility] + [place] [address] ELEUTERIO MILLER Unavailable Unavailable + NARESH Unavailable [address] [facility] + [place] [address] MARIA L MARKHAM Unavailable Unavailable + MARIA L MARKHAM Unavailable Unavailable + MARIA L MARKHAM Unavailable Unavailable + MARIA L MARKHAM Unavailable Unavailable + RASHI, MARIA L Unavailable Unavailable + RASHI, MARIA L Unavailable Unavailable + RASHI, MARIA L Unavailable Unavailable + RASHI, MARIA L Unavailable Unavailable + RASHI, MARIA L Unavailable Unavailable + ELEUTERIO MILLER Unavailable [address] + [place] [address] NARESH Unavailable [address] [facility] + [place] [address] RASHI, MARIA L Unavailable [address] + [place] [address] NARESH Unavailable [address] [facility] + [place] [address] RASHI, MARIA L Unavailable Unavailable + RASHI, MARIA L Unavailable Unavailable + RASHIMARIA L Unavailable Unavailable + MARIA L MARKHAM Unavailable [address] + [place] [address] NARESH Unavailable [address] [facility] + [place] [address] Care Team Providers Name Role Phone BASSAM QUEZADA Attending Unavailable KENNEDY GARDNER, DR. SEAN Patterson Primary Care Unavailable HETAL STEVEN DO Attending Unavailable KENNEDY GARDNER, DR. SEAN Patterson Primary Care Unavailable JOE MOCTEZUMA DO Attending Unavailable KENNEDY GARDNER, DR. SEAN Patterson Primary Care Unavailable Jacqueline Cotter MD Attending Unavailable KENNEDY GARDNER, DR. SEAN Patterson Primary Care Unavailable Vance Cisneros Attending Unavailable PROVIDER, UNKNOWN Referring Unavailable Chavez Young Primary Care Unavailable Nel Harvey Attending Unavailable Nel Harvey Referring Unavailable Chavez Young Primary Care Unavailable Chavez Young Primary Care Unavailable Sabas Bray Attending Unavailable Chavez Young Primary Care Unavailable Jaden Messer Attending Unavailable White, Barbara Admitting Unavailable White, Barbara Referring Unavailable Kennedy, Chavez Primary Care Unavailable Paintsil, Imperial Attending Unavailable White, Barbara Admitting Unavailable White, Barbara Attending Unavailable White, Barbara Referring Unavailable Kennedy, Chavez Primary Care Unavailable White, Barbara Consulting Unavailable White, Barbara Admitting Unavailable Paintsil, Imperial Attending Unavailable White, Barbara Referring Unavailable Kennedy, Chavez Primary Care Unavailable Paintsil, Imperial Consulting Unavailable White, Barbara Admitting Unavailable Paintsil, Imperial Attending Unavailable White, Barbara Referring Unavailable Kennedy, Chavez Primary Care Unavailable Paintsil, Imperial Consulting Unavailable Kennedy, Chavez Primary Care Unavailable Cady Vera Attending Unavailable Kennedy, Chavez Primary Care Unavailable Moe Ross Attending Unavailable Richard, Linda Admitting Unavailable Richard, Linda Attending Unavailable Genny Marshall CNP Attending Unavailable PROBLEMS PROBLEMS DATE TYPE CONDITION / CODE ATTENDING STATUS SOURCE 11/23/2017 Admitting Unknown / Richard, Linda Active [facility] diagnosis UNK(Unknown) [facility] Repository 10/02/2017 Unknown M06.4 - Inflammatory Vellanki, Active Isabelle polyarthropathy / [facility] M06.4(ICD-10) Hospital Repository 10/02/2017 Unknown 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 9:20 AM [facility] REPOSITORY TYPE CODE TESTS RESULT OUT OF RANGE REFERENCE UNITS LAB L200.92222 4.5-11.0 K/CU MM Normal WBC 8.7 LAB L200.56123 3.9-5.30 M/CU MM Normal RBC 4.40 LAB L200.53894 11.5-15.5 GM/DL Normal HGB 14.2 LAB L200.28931 35.0-47.0 % Normal HCT 40.3 LAB L200.45189 80.0-99.0 fl Normal MCV 91.6 LAB L200.74820 32.0-36.0 GM/DL Normal MCHC 35.2 LAB L200.41826 11-14.5 Normal RDW 11.9 LAB L200.45231 9.4-12.4 Normal MPV 12.0 LAB L200.47590 150-450 K/CU MM Normal PLT 278 LAB L200.86212 Less than 1 % Normal NRBC 0.0 Performed By: #### L200.30685, L550.38136 #### [facility] [address] [place] [address] HGB A1C GLYCOHB Collected: 06/15/2018 Status: F Source: [facility] 9:20 AM [facility] REPOSITORY TYPE CODE TESTS RESULT OUT OF RANGE REFERENCE UNITS LAB L550.68916 4.3-6.0 Normal HGB A1C 5.3 GLYCOHB Performed By: #### L200.92539, L550.09837 #### [facility] [address] [place] [address] CMP Collected: 06/15/2018 Status: F Source: [facility] 9:20 AM [facility] REPOSITORY TYPE CODE TESTS RESULT OUT OF RANGE REFERENCE UNITS LAB L500.93339 136-145 MMOL/L Normal NA 142 LAB L500.89278 3.5-5.1 MMOL/L Normal K 4.8 LAB L500.05573 98-107 MMOL/L Normal CL 107 LAB L500.70853 21-32 MMOL/L Normal CO2 28 LAB L500.75324 5-16 MMOL/L Normal AGAP 7 LAB L500.50457 70-100 MG/DL Normal GLU 77 Result Comment: 70-100- Normal Fasting; 100-125 Impaired Fasting; greater than 126 on more than one result- Diabetes. ADA guidelines. Results may be falsely elevated after the administration of Sulfapyridine. Results may be falsely depressed after the administration of Sulfasalazine. LAB L500.06295 7-26 MG/DL Normal BUN 16 LAB L500.03098 0.510-0.950 MG/DL Normal CREAT 0.746 Result Comment: Patients receiving either N-Acetylcysteine (NAC) or Metamizole prior to venipuncture, may have falsely depressed results. LAB L500.73797 15-24 Normal BUN/CREA 22 LAB L500.25925 6.0-8.5 GM/DL Normal TP 7.7 LAB L500.44625 3.2-5.0 GM/DL Normal ALBUMIN 4.2 LAB L500.01445 2.2-4.2 GM/DL Normal GLOBULIN 3.5 LAB L500.77599 0.8-2.0 Normal A/G RATIO 1.2 LAB L500.63723 8.5-10.1 MG/DL Normal CALCIUM TOTAL 9.4 LAB L500.44894 0.2-1.0 MG/DL Normal BILI TOTAL 0.3 LAB L500.91462 8-34 U/L Normal SGOT (AST) 17 Result Comment: RESULTS MAY BE FALSELY DEPRESSED AFTER THE ADMINISTRATION OF SULFASALAZINE AND/OR SULFAPYRIDINE. LAB L500.41227 13-61 IU/L Normal SGPT (ALT) 20 Result Comment: RESULTS MAY BE FALSELY DEPRESSED AFTER THE ADMINISTRATION OF SULFASALAZINE AND/OR SULFAPYRIDINE. LAB L500.92738 45-117 U/L Normal ALK PHOS 116 Performed By: #### L500.82485, L500.14611, L500.67513, L500.12320, L500.17931, L500.30732, L550.67608 #### [facility] [address] [place] [address] GFR EST Collected: 06/15/2018 Status: F Source: [facility] 9:20 AM [facility] REPOSITORY TYPE CODE TESTS RESULT OUT OF RANGE REFERENCE UNITS LAB L500.79871 ML/MIN Normal IF non-AFR Greater than AMER 60 LAB L500.72724 ML/MIN Normal IF Greater than AMER 60 Performed By: #### L500.24473, L500.96476, L500.22120, L500.94396, L500.73429, L500.36324, L550.65064 #### [facility] [address] [place] [address] LIPID Collected: 06/15/2018 Status: F Source: [facility] 9:20 AM [facility] REPOSITORY TYPE CODE TESTS RESULT OUT OF RANGE REFERENCE UNITS LAB L500.82732 30-149 MG/DL High TRIG 287 Result Comment: Patients receiving either N-Acetylcysteine (NAC) or Metamizole prior to venipuncture, may have falsely depressed results. LAB L500.93614 0-199 MG/DL Normal CHOL 198 LAB L500.08457 GREATER TN 40 MG/DL Normal HDL DIRECT 41 Result Comment: Patients receiving Metamizole prior to venipuncture, may have falsely depressed results. LAB L500.40403 0-129 MG/DL Normal LDL 99 Result Comment: ___CHOLESTEROL/HDL RATIO RISK___ CHD RISK = Total CHOL LDL HDL (CHOL/HDL) Recommended <200 <130 >35 <3.4 Borderline 200-239 130-159 3.4-4.99 High >240 >160 >5.0 Performed By: #### L500.02836, L500.04572, L500.66028, L500.09914, L500.81361, L500.10036, L550.40241 #### [facility] [address] [place] [address] B12 Collected: 06/15/2018 Status: F Source: [facility] 9:20 AM [facility] REPOSITORY TYPE CODE TESTS RESULT OUT OF RANGE REFERENCE UNITS LAB L500.32863 193-986 PG/ML Normal B12 624.4 Performed By: #### L500.43715, L500.29988, L500.32792, L500.82450, L500.53077, L500.86419, L550.12556 #### [facility] [address] [place] [address] T4 FREE Collected: 06/15/2018 Status: F Source: [facility] 9:20 AM [facility] REPOSITORY TYPE CODE TESTS RESULT OUT OF RANGE REFERENCE UNITS LAB L500.50644 0.76-1.46 NG/DL Low T4 FREE 0.73 Performed By: #### L500.16210, L500.29702, L500.92075, L500.99406, L500.23240, L500.17204, L550.89507 #### [facility] [address] [place] [address] TSH Collected: 06/15/2018 Status: F Source: [facility] 9:20 AM [facility] REPOSITORY TYPE CODE TESTS RESULT OUT OF RANGE REFERENCE UNITS LAB L500.76347 0.358-3.740 UIU/ML Normal TSH 0.928 Result Comment: 3rd generation ultra sensitive TSH Performed By: #### L500.04171, L500.23473, L500.87462, L500.06601, L500.06387, L500.87312, L550.21822 #### [facility] [address] [place] [address] [id number] Collected: 06/15/2018 Status: F Source: [facility] 9:20 AM [facility] REPOSITORY TYPE CODE TESTS RESULT OUT OF RANGE REFERENCE UNITS LAB L550.19432 30.0-100.0 NG/ML Low 19.8 [id number] XY Result Comment: Deficiency Less than 20 ng/mL Insufficiency 20 - Less than 30 ng/mL Sufficiency 30 - 100 ng/mL Performed By: #### L500.81886, L500.65885, L500.32949, L500.40216, L500.19599, L500.96041, L550.87279 #### [facility] [address] [place] [address]# [phone] 12 LEAD ELECTROCARDIOGRAM Observed: 06/12/2018 Status: F Source: [place] 2:17 PM [facility] Cardiovascular Services [address] [place] [address] 12 Lead EKG 06/07/18 0828 MR#: [id number] Acct: [id number] Name: GUZMANLISS M Rep #: [id number] : 1975 42 From: Leonidas Parsons MD [...] ECG Confirmed by BAY ANNE, LEONIDAS ([id number]), videotape editor ASHA MOCTEZUMA ([id number]) on 06/12/2018 2:17:02 PM Referred By: CINDI Confirmed By:LEONIDAS PARSONS MD 06/12/18 1417 Date Leonidas Parsons MD CC: Moe Ross MD; Chavez Young DO Signed DISCHARGE INSTRUCTION Observed: 06/07/2018 Status: F Source: [place] 3:56 PM [facility] Medical Records Department [address] [place] [address] Discharge Instruction 06/07/18 0947 MR#: [id number] Acct: [id number] Name: LISS GUZMAN Rep #: [id number] : 1975 42 From: Moe Ross MD [...] your Primary Care Provider. Call [facility] ([phone]) or report to the closest Emergency Room. Call 911 if necessary. 06/07/18 1556 <Electronically signed by Moe Ross MD> Date Moe Ross MD Cosigner Signature (If Indicated): Date CC: Chavez Young DO EMERGENCY DEPARTMENT Observed: 06/07/2018 Status: F Source: [place] SUMMARY 3:56 PM [facility] REPOSITORY [facility] Medical Records Department [address] [facility] [place] [address] Emergency Department Summary 06/07/18 0815 MR#: [id number] Acct: [id number] Name: LISS GUZMAN Rep #: [id number] : 1975 42 From: Moe Ross MD [...] denies alcohol use. She was [facility] to [facility] in April of this year. She was subsequently admitted at [facility] for what she describes as anxiety. She [...] Patient has a COWS score of 19. [facility] was contacted and they will evaluate the patient. Medical clearance is underway. Patient's workup was unremarkable. Her tox screen did test positive for opioids, MDMA, and benzodiazepines. Her chest x-ray was unremarkable. Blood counts normal. Everything else unremarkable. I did speak with the [facility] personal finance instructor. The patient does not have active Medicaid and cannot be admitted. There is no indication for a medical admission. Patient will be referred to 180 for outpatient follow-up. Treatment Plan: As above Disposition: Discharge Impression: 1. Opioid withdrawal 2. Acute bronchitis This note was generated with Gendel dictation software. It may contain incorrect words, [...] problems, contact your Primary Care Provider. Call [facility] ([phone]) or report to the closest Emergency Room. Call 911 if necessary. 06/07/18 4315 <Electronically signed by Moe Ross MD> Date Moe Ross MD Cosigner Signature (If Indicated): Date CC: Chavez Young DO CBC W/DIFF, AUTOMATED Collected: 06/07/2018 Status: F Source: [place] 8:20 AM [facility] REPOSITORY TYPE CODE TESTS RESULT OUT [...] Lymph 2.06 Performed By: #### L100.0100 #### [facility] [address] [place], [address] COMPREHENSIVE METABOLIC Collected: 06/07/2018 Status: F Source: [place] 8:20 AM [facility] REPOSITORY TYPE CODE TESTS RESULT OUT [...] GAP 7 Performed By: #### L500.4050 #### [facility] [address] [place], [address] ALCOHOL, BLOOD Collected: 06/07/2018 Status: F Source: [place] (MEDICAL)-SERUM 8:20 AM [facility] REPOSITORY TYPE CODE TESTS RESULT OUT [...] fatal coma Performed By: #### L501.9100 #### [facility] [address] [facility] [place], [address] SALICYLATE Collected: 06/07/2018 Status: F Source: [place] 8:20 AM [facility] REPOSITORY TYPE CODE TESTS RESULT OUT OF RANGE REFERENCE UNITS LAB L501.8300 2.8-20.0 mg/dL Normal SALICYLATE 4.1 Performed By: #### L501.8300, L501.8400 #### [facility] [address] [place], [address] ACETAMINOPHEN (TYLENOL) Collected: 06/07/2018 Status: F Source: [place] LEVEL 8:20 AM [facility] REPOSITORY TYPE CODE TESTS RESULT OUT OF REFERENCE UNITS RANGE LAB L501.8400 10.0-30.0 ug/mL ACETAMINOPHEN Low < 2.0 Performed By: #### L501.8300, L501.8400 #### [facility] [address] [place], [address] URINE DRUG SCREEN Collected: 06/07/2018 Status: F Source: [place] (VISTA) 8:10 AM [facility] REPOSITORY TYPE CODE TESTS RESULT OUT [...] Normal NEGATIVE Performed By: #### L505.5000 #### [facility] [address] [facility] [place], [address] CHEST 1 VIEW Observed: 06/07/2018 Status: F Source: [place] (PORTABLE) 8:09 AM [facility] REPOSITORY [facility] Imaging Services [address] [place] [address] Chest 1 View (Portable) MR#: [id number] Acct: [id number] Name: LISS GUZMAN Rep #: [id number] : 1975 F 42 From: Jose Campo MD PCP: Chavez Young DO Status: REG ER Study: Chest 1 View (Portable) Date of Exam: 06/07/18 Exam# [id number] Ordering Dr: Moe Ross MD STUDY: X-RAY [...] Jose Campo MD at 8:49 EST Tel [phone], Service support , CC: Moe Ross MD; Chavez Young DO Excavating Machine Operator: Signed DISCHARGE INSTRUCTION Observed: 06/05/2018 Status: F Source: [place] 11:09 AM [facility] Medical Records Department [address] [place] [address] Discharge Instruction 06/05/181105 MR#: [id number] Acct: [id number] Name: LISS GUZMAN Rep #: [id number] : 1975 42 From: Cady Vera DO [...] your Primary Care Provider. Call [facility] ([phone]) or report to the closest Emergency Room. Call 911 if necessary. 06/05/18 1109 <Electronically signed by Cady Vera DO> Date Cady Vera DO Cosigner Signature (If Indicated): Date CC: Chavez Young DO EMERGENCY DEPARTMENT Observed: 06/05/2018 Status: F Source: [place] SUMMARY 11:06 AM [facility] REPOSITORY [facility] Medical Records Department [address] [place] [address] Emergency Department Summary 06/05/18 1104 MR#: [id number] Acct: [id number] Name: LISS GUZMAN Rep #: [id number] : 1975 42 From: Cady Vera DO [...] or sore throat. She has been using lpno-dhu-hikldcs cough suppressants unsuccessfully.] Physical Examination: [HEENT-PERRLA, EOMI. [...] Impression: [Bronchitis] This note was generated with Visionarityation software. It may contain incorrect words, spelling, [...] your Primary Care Provider. Call [facility] ([phone]) or report to the closest Emergency Room. Call 911 if necessary. 06/05/18 1106 <Electronically signed by Cady Vera DO> Date Cady [employer] Cosigner Signature (If Indicated): Date CC: Chavez Young DO LIPID PANEL Collected: 04/24/2018 Status: F Source: [facility] 6:20 AM SYSTEM REPOSITORY TYPE CODE TESTS [...] CHD Performed By: #### LIPD2, HA1C2 #### [facility] [address] [place] [id number] HEMOGLOBIN A1C Collected: 04/24/2018 Status: F Source: [facility] 6:20 AM [facility] REPOSITORY TYPE CODE TESTS RESULT OUT OF RANGE REFERENCE UNITS LAB A1C2 4.0-5.7 % Normal Hemoglobin A1C 5.0 Result Comment: --HgbA1C levels may not be accurate in patients who have renal disease, received recent blood transfusions, are anemic, or who have dyshemoglobinemia. LAB EAG2 mg/dL Estimated Avg Glucose 97 Performed By: #### LIPD2, HA1C2 #### [facility] [address] [place] [address] HEMOGRAM W/ AUTODIFF Collected: 04/22/2018 Status: F Source: [facility] 2:12 PM SYSTEM REPOSITORY TYPE CODE TESTS [...] #### HEMDF, SAL33, CMP3, ACET4, ETOH4 #### [facility] [address] [place] [address] SALICYLATES Collected: 04/22/2018 Status: F Source: [facility] 2:12 PM SYSTEM REPOSITORY TYPE CODE TESTS RESULT OUT OF RANGE REFERENCE UNITS LAB SAL3 0.0-20.0 mg/dL Salicylates Normal < 1.0 Performed By: #### HEMDF, SAL33, CMP3, ACET4, ETOH4 #### [facility] [address] [place] [address] COMP METABOLIC PANEL Collected: 04/22/2018 Status: F Source: [facility] 2:12 PM SYSTEM REPOSITORY TYPE CODE TESTS [...] #### HEMDF, SAL33, CMP3, ACET4, ETOH4 #### [facility] [address] [place] [address] ACETAMINOPHEN Collected: 04/22/2018 Status: F Source: [facility] 2:12 PM SYSTEM REPOSITORY TYPE CODE TESTS RESULT OUT OF REFERENCE UNITS RANGE LAB ACET3 10.0-30.0 ug/mL Acetaminophen Normal < 10.0 Performed By: #### HEMDF, SAL33, CMP3, ACET4, ETOH4 #### [facility] [address] [place] [address] ETHANOL SERUM/PLASMA Collected: 04/22/2018 Status: F Source: [facility] 2:12 PM SYSTEM REPOSITORY TYPE CODE TESTS RESULT OUT OF RANGE REFERENCE UNITS LAB ETOH3 0.000-0.010 g/dL Normal < 0.010 Ethanol-Seru m/Plasma Result Comment: NOTE: This result is for medical treatment only. Analysis performed using non-forensic procedures. Performed By: #### HEMDF, SAL33, CMP3, ACET4, ETOH4 #### [facility] [address] [place] [address] HCG,URINE QUAL Collected: 04/22/2018 Status: F Source: [facility] 2:12 PM SYSTEM REPOSITORY TYPE CODE TESTS RESULT OUT OF REFERENCE UNITS RANGE LAB HCGUR Negative NA Negative HCG,Urine Qual Result Comment: is the most common reason for HCG in urine, although choriocarcinoma, hydatidiform mole, and certain nontropho- blastic malignancies also result in detectable urinary HCG levels. Sensitivity = 20mIU/mL. Performed By: #### PAULA, UAMAC, DRGA4 #### [facility] [address] [place] [address] URINALYSIS,MACRO Collected: 04/22/2018 Status: F Source: [facility] 2:12 PM SYSTEM REPOSITORY TYPE CODE TESTS RESULT OUT OF REFERENCE UNITS RANGE LAB APPUR Clear NA Appearance CLEAR LAB COLUR Lt. Yellow NA Color YELLOW LAB USG 1.005-1.030 NA Specific Normal [place],Urine 1.016 LAB UPH 5.0-8.0 NA pH,Urine Normal [...] Performed By: #### HCGUR, UAMAC, DRGA4 #### [facility] [address] [place] [address] DRUGS OF ABUSE Collected: 04/22/2018 Status: F Source: [facility] 2:12 PM SYSTEM REPOSITORY TYPE CODE TESTS [...] Performed By: #### HCGUR, UAMAC, DRGA4 #### [facility] [address] [place] [address] ED PROVIDER NOTE Observed: 04/22/2018 Status: F Source: [facility] 12:59 PM SYSTEM REPOSITORY Triage Chief Complaint: Withdrawal (possible withdrawal from klonopin and percocet. hasn't had klonopin for last week. last percocet was last monday. unable to sleep, sweats, nausea . vomiting. ) and Addiction Problem TUL[place]: Liss Guzman is a 42 y.o. female [...] # 2.0 1.0 - 4.3 10*3/uL Absolute [place] # 0.7 0.0 - 0.8 10*3/uL Absolute [...] eGFR >60.0 >60 mL/min EGFR IF NonAfrican Guinean >60.0 >60 mL/min Calcium 10.2 8.4 - [...] Color, UA YELLOW Lt. Yellow NA Specific [place], Urine 1.016 1.005 - 1.030 NA pH, [...] losing rational thinking, and can I contacted [facility]. They agreed to admit the patient to their service. I did fill out a pink slip expressing my concerns on the patient. The patient is agreeable with this plan and is happy to go to [facility]. Clinical Impression: 1. Anxiety state 2. Withdrawal [...] DISCHARGE SUMMARY Observed: 04/20/2018 Status: F Source: [place] 1:59 PM [facility] REPOSITORY 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 Discussed with [facility] staff, that we do not think [...] applicable Code Visit Inpatient E AND M: [id number] Disch Hosp 04/20/18 1359 <Electronically signed by Olimpia Borjas MD> Date Olimpia Borjas MD Cosigner Signature (if applicable): Date CC: Olimpia Borjas MD; Chavez Young DO Signed DISCHARGE INSTRUCTION Observed: 04/20/2018 Status: F Source: [place] 8:54 [facility] REPOSITORY [facility] Medical Records Department [address] [place] [address] Instructions for Home/Discharge Instructions 04/20/18 0852 MR#: [id number] Acct: [id number] Name: LISS GUZMAN Rep #: [id number] : 1975 42 From: Olimpia Borjas MD [...] F Source: [place] PROFILE (BMP) 9:48 AM [facility] REPOSITORY TYPE CODE TESTS RESULT OUT [...] GAP 5 Performed By: #### L500.2500 #### [facility] [address] [place], [address] HISTORY AND PHYSICAL Observed: 04/18/2018 Status: F Source: [place] EXAM 4:39 PM [facility] REPOSITORY [facility] Medical Records Department [address] [place] [address] History and Physical 04/18/18 1345 MR#: [id number] Acct: [id number] Name: LISS GUZMAN Rep #: [id number] : 1975 42 From: Barbara Silver PCP: Chavez Young DO Status: ADM IN Y Location: [facility] [id number] ADDENDUM by Barbara Silver on 04/18/18 at 1639 Code Visit UDS w/ barbituates only. No BZD or opiates. Given reported timeline of intake and no findings on UDS concern for malingering versus possibly misuse of her prescribed Klonopin at least possibly selling. We will need to discuss in a.m. with [employer] given these concerns. 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 Code Visit Inpatient E AND M: [id number] Init Hosp L3 04/18/18 1409 <Electronically signed by Barbara Silver > Date Barbara Silver Cosigner Signature: Date (if applicable) CC: Barbara Silver; Chavez Young DO Signed URINE DRUG SCREEN Collected: 04/18/2018 Status: F Source: [place] ([facility] 3:15 PM [facility] REPOSITORY TYPE CODE TESTS RESULT OUT [...] Normal NEGATIVE Performed By: #### L505.5000 #### [facility] [address] [place], [address] CBC W/DIFF, AUTOMATED Collected: 04/18/2018 Status: F Source: [place] 2:15 PM [facility] REPOSITORY TYPE CODE TESTS RESULT OUT [...] Lymph 3.18 Performed By: #### L100.0100 #### [facility] [address] [place], [address] COMPREHENSIVE METABOLIC Collected: 04/18/2018 Status: F Source: [facility] 2:15 PM [facility] REPOSITORY TYPE CODE TESTS RESULT OUT [...] 9 Performed By: #### L500.4050, L501.2450 #### [facility] [address] [place], [place], [id number] LIPASE Collected: 04/18/2018 Status: F Source: [place] 2:15 PM [facility] REPOSITORY TYPE CODE TESTS RESULT OUT OF RANGE REFERENCE UNITS LAB L501.2450 73-393 U/L Normal LIPASE 135 Performed By: #### L500.4050, L501.2450 #### [facility] [address] [place], [place], [id number] ALCOHOL, BLOOD Collected: 04/18/2018 Status: F Source: [place] ([facility] 2:15 PM [facility] REPOSITORY TYPE CODE TESTS RESULT OUT [...] fatal coma Performed By: #### L501.9100 #### [facility] [address] [place], [address] CBC W/DIFF, AUTOMATED Collected: 04/18/2018 Status: F Source: [place] 2:05 PM [facility] REPOSITORY TYPE CODE TESTS RESULT OUT [...] Lymph 3.18 Performed By: #### L100.0100 #### [facility] [address] [place], [address] DISCH.SUM Observed: 11/24/2017 Status: UNK Source: [facility] 2:56 PM [facility] REPOSITORY [facility] Patient Name: LISS GUZMAN [address] Date of : [address] [place] [address] Unit Number: [id number] Discharge Summary Patient Status: ADM IN Attending [...] vomiting Operations/Procedures Colonoscopy done on 11/24/2017 by [facility] Course Mrs. Guzman is a 41-year-old pleasant female with past medical history significant for migraines, autoimmune disorder of polyarthritis, Sjogren's, scleroderma, follows up with a research computing specialist at [facility], came into the hospital with complaints of [...] Nondistended. 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 Phonetic and/or minor grammatical errors may exist. eSign Date and Time Linda Ramos MD Verified/Reviewed by 11/24/17 1557 SURG Observed: 11/24/2017 Status: F Source: [facility] 2:15 PM [facility] REPOSITORY Patient: LISS GUZMAN SPECIMEN: [id number] Collection [...] Phonetic and/or minor grammatical errors may exist. [facility] NAME: LISS GUZMAN Pathology and Laboratory Medicine UNIT#: [id number] LOC: [facility] Software Reliability Engineer: Louise Grier M.D. [facility] [id number] ROOM/BED: [place] [address] [facility] : 73 AGE/SEX: 41/F ORD.Segundo Antonio MD END OF REPORT CBC W/DIFF Collected: 11/24/2017 Status: F Source: [facility] 5:17 AM [facility] REPOSITORY Order Comment: [place]: TYPE CODE TESTS RESULT OUT OF RANGE REFERENCE UNITS LAB L200.59915 4.5-11.0 K/CU MM WBC Normal 8.6 LAB L200.57626 3.90-5.30 M/CU MM Low RBC 3.02 LAB L200.03537 11.5-15.5 G/DL Low HGB 9.5 LAB L200.80539 35.0-47.0 % Low HCT 28.0 LAB L200.48159 80.0-99.0 fl MCV Normal 92.7 LAB L200.77293 32.0-36.0 GM/DL MCHC Normal 33.9 LAB L200.40584 11-14.5 RDW Normal 12.2 LAB L200.33044 9.4-12.4 MPV Normal 10.5 LAB L200.55730 150-450 K/CU MM PLT Normal 167 LAB L200.72374 45-75 % NEUTROPHILS Normal % 50.3 LAB L200.85100 Less than 2 % IMMATURE Normal GRAN % 0.4 LAB L200.78677 20-40 % High LYMPH % 40.2 LAB L200.76416 2-10 % MONOCYTE % Normal 7.8 LAB L200.81985 0-5 % EOSINOPHIL Normal % 1.1 LAB L200.06961 0-2 % BASOPHIL % Normal 0.2 LAB L200.58424 2.0-8.3 K/CU MM NEUTROPHIL Normal ABS 4.30 LAB L200.99986 Less than 2 K/CU MM IMMATR GRAN Normal ABS 0.00 LAB L200.02430 0.9-4.4 K/CU MM LYMPH ABS Normal 3.40 LAB L200.52945 0.1-1.1 K/CU MM MONO ABS Normal 0.70 LAB L200.55037 0-0.5 K/CU MM EOS ABS Normal 0.10 LAB L200.30042 0-0.2 K/CU MM BASO ABS Normal 0.00 LAB L200.27070 Less than 1 % NRBC Normal 0.0 Performed By: #### L200.86506 #### [facility] [address] [place] [address] BMP Collected: 11/24/2017 Status: F Source: [facility] 5:17 AM [facility] REPOSITORY Order Comment: [place]: TYPE CODE TESTS RESULT OUT OF RANGE REFERENCE UNITS LAB L500.11253 136-145 MMOL/L High NA 147 LAB L500.46277 3.5-5.1 MMOL/L Normal K 3.5 LAB L500.38949 98-107 MMOL/L High CL 112 LAB L500.84093 21-32 MMOL/L Normal CO2 26 LAB L500.17476 5-16 MMOL/L Normal AGAP 8 LAB L500.16542 70-100 MG/DL Normal GLU 91 Result Comment: 70-100- Normal Fasting; 100-125 Impaired Fasting; greater than 126 on more than one result- Diabetes. ADA guidelines. Results may be falsely elevated after the administration of Sulfapyridine. Results may be falsely depressed after the administration of Sulfasalazine. LAB L500.37842 7-26 MG/DL Normal BUN 10 LAB L500.68328 0.510-0.950 MG/DL Normal CREAT 0.682 Result Comment: Patients receiving either N-Acetylcysteine (NAC) or Metamizole prior to venipuncture, may have falsely depressed results. LAB L500.32554 15-24 Normal BUN/CREA 15 LAB L500.01390 8.5-10.1 MG/DL Low CALCIUM TOTAL 8.0 Performed By: #### L500.80863, L500.30817 #### [facility] [address] [place] [address] GFR EST Collected: 11/24/2017 Status: F Source: [facility] 5:17 AM [facility] REPOSITORY Order Comment: [place]: M TYPE CODE TESTS RESULT OUT OF RANGE REFERENCE UNITS LAB L500.07534 ML/MIN Normal IF non-AFR Greater than AMER 60 LAB L500.49339 ML/MIN Normal IF Greater than AMER 60 Performed By: #### L500.13874, L500.64046 #### [facility] [address] [place] [address] WSR/MOD Collected: 11/23/2017 Status: F Source: [facility] 6:21 AM [facility] REPOSITORY Order Comment: [place]: M TYPE CODE TESTS RESULT OUT OF RANGE REFERENCE UNITS LAB L200.89214 0-20 MM/HR Normal WSR/MOD 16 Performed By: #### L200.79816 #### [facility] [address] [place] [address] PHOS Collected: 11/23/2017 Status: F Source: [facility] 6:21 AM [facility] REPOSITORY Order Comment: [place]: M TYPE CODE TESTS RESULT OUT OF RANGE REFERENCE UNITS LAB L500.93638 2.5-4.9 MG/DL Normal PHOS 3.0 Performed By: #### L500.80446, L500.85042, L500.84202, L500.24758, L550.31869 #### [facility] [address] [place] [address] IRON Collected: 11/23/2017 Status: F Source: [facility] 6:21 AM [facility] REPOSITORY Order Comment: [place]: M TYPE CODE TESTS RESULT OUT OF RANGE REFERENCE UNITS LAB L500.62364 50-170 UG/DL Normal IRON 59 Result Comment: Patients treated with metal-binding drugs (e.g.deferoxamine) may have depressed iron values, as chelated iron may not properly react in the Siemens iron assay. Performed By: #### L500.47966, L500.14628, L500.19549, L500.35367, L550.83619 #### [facility] [address] [place] [address] B12 Collected: 11/23/2017 Status: F Source: [facility] 6:21 AM [facility] REPOSITORY Order Comment: [place]: M TYPE CODE TESTS RESULT OUT OF RANGE REFERENCE UNITS LAB L500.47924 193-986 PG/ML Normal B12 533.6 Performed By: #### L500.36715, L500.12520, L500.09370, L500.88555, L550.02838 #### [facility] [address] [place] [address] FOLIC ACID Collected: 11/23/2017 Status: F Source: [facility] 6:21 AM [facility] REPOSITORY Order Comment: [place]: M TYPE CODE TESTS RESULT OUT OF RANGE REFERENCE UNITS LAB L500.76124 >3.0 NG/ML Normal FOLIC 21.1 ACID Performed By: #### L500.67290, L500.89753, L500.51346, L500.08565, L550.18618 #### [facility] [address] [place] [address] CRP Collected: 11/23/2017 Status: F Source: [facility] 6:21 AM [facility] REPOSITORY Order Comment: [place]: M TYPE CODE TESTS RESULT OUT OF RANGE REFERENCE UNITS LAB L550.87785 0.00-0.32 MG/DL High CRP 1.06 Performed By: #### L500.98221, L500.32947, L500.30563, L500.95535, L550.43939 #### [facility] [address] [place] [address] HP.IMS.ADM Observed: 11/23/2017 Status: UNK Source: [facility] 3:43 AM [facility] REPOSITORY [facility] Patient Name: LISS GUZMAN [address] [facility] Date of : [address] [place] [address] Unit Number: [id number] Admission-HandP Patient Status: ADM IN Attending Doctor: [...] followed by Dr. Young. Patient comes to [facility] ED tonight as a transfer from [facility]. She presented there for severe abdominal distention and abdominal pain with associated nausea, and had a noncontrast abdominal CT that showed possible appendicitis. She was transferred to [facility] for GI services and additional testing. She [...] she noticed yesterday. She is followed by research computing specialist for her autoimmune conditions, and recently was [...] in bed, no apparent distress. Well-developed. Skin: [place], dry, warm to touch. No rash, lesions, [...] her various autoimmune disorders; follow-up with her research computing specialist outpatient. -Resume lorazepam and Cymbalta at current [...] Statement of Attestation I have personally conducted [id number] evaluation of this patient. She was admitted [...] ED DOC Observed: 11/23/2017 Status: UNK Source: [facility] 2:52 AM [facility] REPOSITORY This is a preliminary report only, as the practitioner review and authentication has not occurred. ED DOC Observed: 11/23/2017 Status: UNK Source: [place] 2:52 AM [facility] REPOSITORY PHYSICIAN ASSESSMENT RECORDS : FlexChartData Event Time: 11/23/2017 03:10 Status: Signed [facility] Liss Guzman [[id number]] Attending Physician 41 / F / 1975 Chart (V2b) Chart created at 11/23/2017 02:24 by Mehrdad Hatfield Chart closed at 11/23/2017 02:35 Entry in Emergency Department at 11/22/2017 22:48, departure at 11/23/2017 02:52 Patient Name: Liss Guzman Record Number: [id number] Date: 11/23/2017 02:24 Entered Department at: 11/22/2017 22:48 Patient Seen at: 11/22/2017 23:44 Decision to Admit at: 11/23/2017 02:35 Historian: EMS and Patient ([facility] emergency notes) Chief Complaint:ABDOMINAL PAIN- possible appendicitis Triage Note reviewed and Initial Vital Signs reviewed. Temperature: 98.1 F (36.7 C). Pulse: 83. Respiratory Rate: 16. Blood-pressure: 119/70. Oxygen Saturation: 97%. History of Present Illness: Patient was transferred from [facility] emergency department. This is a lady that has been having abdominal pain over the last several months but worsened today. Her pain seemed to localize to the right lower abdomen. They did add noncontrast CT abdomen and pelvis which showed enteritis but possible concern for appendicitis. They talked with her surgeon there who felt [facility] PATIENT NAME: LISS GUZMAN [address] [facility] [address] MEDICAL REC #: [id number] [place] [address] EMERGENCY DEPARTMENT CHART EMERGENCY DEPARTMENT PHYSICIAN the [...] clear. Neck: No Lymphadenopathy, No Meningismus and [facility] PATIENT NAME: LISS GUZMAN [facility] [address] MEDICAL REC #: [id number] [place] [address] EMERGENCY DEPARTMENT CHART EMERGENCY DEPARTMENT PHYSICIAN Supple; [...] Study Obtained: CT (ABD/PELV) W ORALIV CON [facility] PATIENT NAME: LISS GUZMAN [facility] [address] Perez MEDICAL REC #: [id number] [place] [address] EMERGENCY DEPARTMENT CHART EMERGENCY DEPARTMENT PHYSICIAN Radiology: [...] did speak with Dr. Green on for [facility] physician services. She was agreeable to having [...] department. CT scan was interpreted by radiology [facility] PATIENT NAME: LISS GUZMAN [address] [facility] [address] MEDICAL REC #: [id number] [place] [address] EMERGENCY DEPARTMENT CHART EMERGENCY DEPARTMENT PHYSICIAN Additional [...] : 1975 Age: 41 yr Account No: [id number] Registration Date: 22:48 11/22/2017 Address: [address] Address: [place] [address] [facility] PATIENT NAME: LISS GUZMAN [address] [facility] [address] MEDICAL REC #: [id number] [place] [address] EMERGENCY DEPARTMENT CHART EMERGENCY DEPARTMENT PHYSICIAN REGISTRATION ED Number: [id number] Marital Status: S Financial Class: COMM TRIAGE Priority: 3 - Urgent Complaint: Abdominal Pain Stated Complaint: ABDOMINAL PAIN- possible appendicitis Arrival Date: 11/22/2017 22:48 Triage Date: 11/22/2017 22:49 Mode of Arrival: Ambulance Transfer From: [facility] WC: N Language: [place]ese Transport: Other$$$ccccccccccccccccccccccccccccc$$$ BED C28 In: 11/22/2017 23:00:14 11/22/2017 23:00:14 RAY C28 (Removed From) Out: 11/23/2017 02:52:53 11/23/2017 02:52:53 DRBA PROVIDERS Emergency Medical Service Provider Contact: 11/22/2017 22:49:30 EMS End: SHANAE NEWMAN Provider Contact: 11/22/2017 23:00:52 RAY End: MD Mehrdad Hatfield Provider Contact: 11/22/2017 23:44:03 MR End: [facility] PATIENT NAME: LISS GUZMAN [address] MEDICAL REC #: [id number] [place] [address] EMERGENCY DEPARTMENT CHART EMERGENCY DEPARTMENT PHYSICIAN TRIAGE [...] History: Alcohol - None 11/22/2017 23:00 DRBA [facility] PATIENT NAME: LISS GUZMAN [address] MEDICAL REC #: [id number] [place] [address] EMERGENCY DEPARTMENT CHART EMERGENCY DEPARTMENT PHYSICIAN Social History: Recreational Drugs - None 11/22/2017 23:00 DRARTEMIO Social History: Smoker- 1/3 PPD 11/22/2017 23:00 DRARTEMIO 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 pt is here for possible appendicitis and [...] Physician Call - Paged DR. JONES at [phone] 11/22/2017 23:53 KMS 11/22/2017 23:51 Physician Call - answered at [phone] 11/22/2017 23:53 KMS 11/22/2017 23:53 Hourly Rounding - Rounding 11/22/2017 23:54 DRBA Elimination/Toileting N Pain 10 Position Comfortable Y Safe Environment Y 11/22/2017 23:53 Patient Interaction - Name Band on Pt [facility] PATIENT NAME: LISS GUZMAN [facility] [address] Perez MEDICAL REC #: [id number] [place] [address] EMERGENCY DEPARTMENT CHART EMERGENCY DEPARTMENT PHYSICIAN 11/22/2017 [...] Primary DOC Guide - E. Family Violence [facility] PATIENT NAME: LISS GUZMAN [address] [facility] [address] MEDICAL REC #: [id number] [place] [address] EMERGENCY DEPARTMENT CHART EMERGENCY DEPARTMENT PHYSICIAN Assessment [...] AND O VITALS VS-ROUTINE Time: 11/22/2017 22:49 [facility] PATIENT NAME: LISS GUZMAN [address] [facility] [address] MEDICAL REC #: [id number] [place] [address] EMERGENCY DEPARTMENT CHART EMERGENCY DEPARTMENT PHYSICIAN B/P: [...] 11/23/2017 02:02 map 75 11/23/2017 02:02 DRBA [facility] PATIENT NAME: LISS GUZMAN [address] MEDICAL REC #: [id number] [place] [address] EMERGENCY DEPARTMENT CHART EMERGENCY DEPARTMENT PHYSICIAN ORDERS [...] Mehrdad Hatfield Noted Time: 11/23/2017 02:27 DRBA WORKFORCE DEVELOPMENT PROGRAM DIRECTOR ORDER: GFRP 11/23/2017 00:33 None Ordered: 11/23/2017 [...] 11/23/2017 00:25 DRBA Results Time: 11/23/2017 00:33 [facility] PATIENT NAME: LISS GUZMAN [address] [facility] [address] MEDICAL REC #: [id number] [place] [address] EMERGENCY DEPARTMENT CHART EMERGENCY DEPARTMENT PHYSICIAN CT [...] By Mehrdad Hatfield Noted Time: 11/22/2017 23:55 RYA Browning (IV)*(2mg/ml) DOSE: 4 mg IV 11/23/2017 00:04 N/A Ordered: 11/22/2017 23:51 By Mehrdad Hatfield Completed Time: 11/23/2017 00:03 By Mehrdad Hatfield [facility] PATIENT NAME: LISS GUZMAN [address] [facility] [address] MEDICAL REC #: [id number] [place] [address] EMERGENCY DEPARTMENT CHART EMERGENCY DEPARTMENT PHYSICIAN Noted [...] MR JOSE L CONNELLY KMS TREY [facility] PATIENT NAME: LISS GUZMAN [address] [facility] [address] MEDICAL REC #: [id number] [place] [address] EMERGENCY DEPARTMENT CHART EMERGENCY DEPARTMENT PHYSICIAN CT ABD/PELV W Observed: 11/23/2017 Status: F Source: [facility] ORALANDIV CONTRAST 2:36 AM [facility] CT ABD/PELV W ORAL&IV CONTRAST Ordering [...] at the time of dictation. Dictated by Roll Forming Machine Set Up Mechanic: Gosia Agustin MD Reviewed and Signed by: Chavez Mauro MD PhD ---- Electronic Signature on File ---- Signed By: Chavez Mauro MD PhD [email or web address] Dictated: 11/23/2017 1:37 AM Signed: 11/23/2017 9:33 AM Reported By: CHAVEZ MAURO M.D. Signed By: CHAVEZ MAURO M.D. Observed: 11/23/2017 Status: UNK Source: [facility] 2:36 AM [facility] REPOSITORY DATE OF CONSULTATION: 11/23/2017 This is [...] Several years ago she moved down to [place] to be with her son who was [...] drink, does not use drugs. She enjoys craRunTitleing and [employer] and working on [employer]. She has a dog and a cat. Her son is 22 years old and is in the in [place]. FAMILY HISTORY: She says everyone in her family is on antidepressants for depression. She also has a family history of fibromyalgia, cancer, heart disease, and brain tumors. PAST MEDICAL HISTORY: She has a history of anxiety and depression, fibromyalgia, polyarthritis, Sjogren syndrome, scleroderma, migraines, and rheumatoid arthritis. PAST SURGICAL HISTORY: She has had hysterectomy, dilatation and curettage, EGDs, [facility] PATIENT NAME: LISS GUZMAN [address] [facility] [address] MEDICAL REC #: [id number] [place] [address] ADMIT DATE: 11/23/17 DISCHARGE DATE: 11/24/17 CONSULTATION [...] her difficulties. I also recommended to her [facility] PAT[facility] MEDICAL REC #: [id number] [place] [address] ADMIT DATE: 11/23/17 DISCHARGE DATE: 11/24/17 CONSULTATION [...] me to see Ms. Guzman. MD SHER [id number] [facility] File#: [id number] CC: Segundo Green MD Verified/Reviewed by 11/28/17 0814 JESSE [facility] PATIENT NAME: LISS GUZMAN Dr. Perez MEDICAL REC #: [id number] [place] [address] ADMIT DATE: 11/23/17 DISCHARGE DATE: 11/24/17 CONSULTATION REPORT ATTENDING PHY: Segundo Green MD CR Observed: 11/23/2017 Status: UNK Source: [facility] 2:36 AM [facility] REPOSITORY DATE OF CONSULTATION: 11/23/2017 REASON FOR THE CONSULT: Abdominal pain, abnormal CT findings. HISTORY OF PRESENT ILLNESS: Patient is a 41-year-old lady who complains of chronic abdominal pain for the past 3 months associated with diarrhea, presented to the [facility] ER. CT scan showed questionable appendicitis with transfer to [facility] for further evaluation. Repeated CT scan [...] schedule colonoscopy. Further recommendations pending procedure findings. [facility] PATIENT NAME: LISS GUZMAN [facility] [address] MEDICAL REC #: [id number] [place] [address] ADMIT DATE: 11/23/17 DISCHARGE DATE: CONSULTATION REPORT ATTENDING PHY: Segudno Green MD, MD [id number] [facility] File#: [id number] Verified/Reviewed by 11/24/17 1102 LUZ ELENA [facility] PATIENT NAME: LISS GUZMAN [facility] [address] MEDICAL REC #: [id number] [place] [address] ADMIT DATE: 11/23/17 DISCHARGE DATE: CONSULTATION REPORT ATTENDING PHY: Segundo Green MD GE Observed: 11/23/2017 Status: UNK Source: [facility] 2:36 AM [facility] DATE OF SERVICE: 11/24/2017 PROCEDURE: Colonoscopy [...] up on pathology report. Humphrey Davidson MD [id number] [facility] File#: [id number] Verified/Reviewed by 12/11/17 0827 LUZ ELENA [facility] PATIENT NAME: LISS GUZMAN [address] [facility] [address] MEDICAL REC #: [id number] [place] [address] ADMIT DATE: 11/23/17 DISCHARGE DATE: 11/24/17 GASTROENTEROLOGY REPORT ATTENDING PHY: Linda Ramos MD DOSETRACK Observed: 11/23/2017 Status: UNK Source: [facility] 1:07 AM [facility] REPOSITORY Test Dose report. Name: MARIANO Bowen Accession Number: [id number] Dose Type: CT Exam: ABPOI-C Max CTDIVol: 15 mGy DLP: 857.59 mGy*cm CT 3 CT ABD/PELV W ORAL IV CONTRAST [id number] 15.4141072775 06487.6787353330 6100.1021947564 61.4941818318 437073 6.1 Abdomen Pelvis Abdomen 5.0000 618.5500 1 [id number] 6100.5608591508 61.7577107845 269459 6.1 Abdomen Pelvis Abdomen 5.0000 618.5500 1 [id number] [id number] 2770.0996040141 P5-32600 6.1 Abdomen Pelvis Abdomen 15.3535696871 857.1410300999 40.0000 0.9800 571.6800 800.0000 295771 1 38.50 [facility] PATIENT NAME: LISS GUZMAN Dr. Perez MEDICAL REC #: [id number] [place] [address] ADMIT DATE: [facility] ATTENDING PHY: Krys Serrano,Emergency Physicia [facility] PATIENT NAME: [facility] MEDICAL REC #: [id number] [place] [address] ADMIT DATE: [facility]GE [facility] ATTENDING PHY: Krys Garcíay,Emergency Physicia CBC W/DIFF Collected: 11/23/2017 Status: F Source: [facility] 12:05 AM [facility] REPOSITORY Order Comment: [place]: TYPE CODE TESTS RESULT OUT OF RANGE REFERENCE UNITS LAB L200.13978 4.5-11.0 K/CU MM WBC Normal 9.6 LAB L200.61497 3.90-5.30 M/CU MM Low RBC 3.69 LAB L200.18660 11.5-15.5 G/DL Low HGB 11.4 LAB L200.92427 35.0-47.0 % Low HCT 34.5 LAB L200.34794 80.0-99.0 fl MCV Normal 93.5 LAB L200.43015 32.0-36.0 GM/DL MCHC Normal 33.0 LAB L200.12304 11-14.5 RDW Normal 12.6 LAB L200.31529 9.4-12.4 MPV Normal 10.7 LAB L200.09616 150-450 K/CU MM PLT Normal 209 LAB L200.41041 45-75 % NEUTROPHILS Normal % 46.1 LAB L200.69058 Less than 2 % IMMATURE Normal GRAN % 0.4 LAB L200.49404 20-40 % High LYMPH % 40.9 LAB L200.22719 2-10 % MONOCYTE % Normal 9.2 LAB L200.11897 0-5 % EOSINOPHIL Normal % 3.0 LAB L200.23547 0-2 % BASOPHIL % Normal 0.4 LAB L200.16498 2.0-8.3 K/CU MM NEUTROPHIL Normal ABS 4.40 LAB L200.56151 Less than 2 K/CU MM IMMATR GRAN Normal ABS 0.00 LAB L200.84142 0.9-4.4 K/CU MM LYMPH ABS Normal 3.90 LAB L200.32464 0.1-1.1 K/CU MM MONO ABS Normal 0.90 LAB L200.84705 0-0.5 K/CU MM EOS ABS Normal 0.30 LAB L200.43849 0-0.2 K/CU MM BASO ABS Normal 0.00 LAB L200.18753 Less than 1 % NRBC Normal 0.0 Performed By: #### L200.43167 #### [facility] [address] [id number] BMP Collected: 11/23/2017 Status: F Source: [facility] 12:05 AM [facility] REPOSITORY Order Comment: [place]: TYPE CODE TESTS RESULT OUT OF RANGE REFERENCE UNITS LAB L500.58203 136-145 MMOL/L Normal NA 145 LAB L500.11063 3.5-5.1 MMOL/L Normal K 3.8 LAB L500.97424 98-107 MMOL/L High CL 112 LAB L500.63942 21-32 MMOL/L Normal CO2 26 LAB L500.32312 5-16 MMOL/L Normal AGAP 7 LAB L500.77884 70-100 MG/DL Normal GLU 91 Result Comment: 70-100- Normal Fasting; 100-125 Impaired Fasting; greater than 126 on more than one result- Diabetes. ADA guidelines. Results may be falsely elevated after the administration of Sulfapyridine. Results may be falsely depressed after the administration of Sulfasalazine. LAB L500.08649 7-26 MG/DL Normal BUN 16 LAB L500.16591 0.510-0.950 MG/DL Normal CREAT 0.776 Result Comment: Patients receiving either N-Acetylcysteine (NAC) or Metamizole prior to venipuncture, may have falsely depressed results. LAB L500.48251 15-24 Normal BUN/CREA 21 LAB L500.74065 8.5-10.1 MG/DL Low CALCIUM TOTAL 8.3 Performed By: #### L500.53473, L500.37749, L500.14169, L500.84612 #### [facility] [address] [place] [address] GFR EST Collected: 11/23/2017 Status: F Source: [facility] 12:05 AM [facility] REPOSITORY Order Comment: [place]: M TYPE CODE TESTS RESULT OUT OF RANGE REFERENCE UNITS LAB L500.56826 ML/MIN Normal IF non-AFR Greater than AMER 60 LAB L500.23356 ML/MIN Normal IF Greater than AMER 60 Performed By: #### L500.27401, L500.23075, L500.61484, L500.29850 #### [facility] [address] [place] [address] LIVER Collected: 11/23/2017 Status: F Source: [facility] 12:05 AM [facility] REPOSITORY Order Comment: [place]: M TYPE CODE TESTS RESULT OUT OF RANGE REFERENCE UNITS LAB L500.77597 6.0-8.5 GM/DL TP Normal 6.2 LAB L500.65452 3.2-5.0 GM/DL Normal ALBUMIN 3.4 LAB L500.01724 2.2-4.2 GM/DL Normal GLOBULIN 2.8 LAB L500.74346 0.8-2.0 Normal A/G RATIO 1.2 LAB L500.47370 0.2-1.0 MG/DL Normal BILI TOTAL 0.3 LAB L500.69286 0.00-0.20 MG/DL Normal BILI DIRECT LESS THAN 0.05 LAB L500.10398 8-34 U/L Normal SGOT (AST) 22 Result Comment: RESULTS MAY BE FALSELY DEPRESSED AFTER THE ADMINISTRATION OF SULFASALAZINE AND/OR SULFAPYRIDINE. LAB L500.38014 13-61 IU/L Normal SGPT (ALT) 25 Result Comment: RESULTS MAY BE FALSELY DEPRESSED AFTER THE ADMINISTRATION OF SULFASALAZINE AND/OR SULFAPYRIDINE. LAB L500.96008 45-117 U/L Normal ALK PHOS 76 Performed By: #### L500.81248, L500.44462, L500.96378, L500.73870 #### [facility] [address] [place] [address] LIPASE Collected: 11/23/2017 Status: F Source: [facility] 12:05 AM [facility] REPOSITORY Order Comment: [place]: M TYPE CODE TESTS RESULT OUT OF RANGE REFERENCE UNITS LAB L500.85609 73-393 U/L Normal LIPASE 178 Performed By: #### L500.03102, L500.00545, L500.35818, L500.95873 #### [facility] [address] [place] [address] EMERGENCY DEPARTMENT Observed: 11/22/2017 Status: F Source: [place] SUMMARY 8:58 PM [facility] REPOSITORY [facility] Medical Records Department [address] [place] [address] Emergency Department Summary 11/22/17 1813 MR#: [id number] Acct: [id number] Name: LISS GUZMAN Rep #: [id number] : 1975 41 From: Juventino Messer MD [...] The patient requested to be transferred to [facility] and she was accepted by Dr. Tariq. Treatment Plan: Was given 1 dose of IV Zosyn and transferred in stable condition Disposition: Transferred to [facility] [place] Impression: Initial encounter right lower quadrant abdominal pain, enteritis versus early appendicitis This note was generated with Gendel dictation software. It may contain incorrect words, [...] your Primary Care Provider. Call [facility] ([phone]) or report to the closest Emergency Room. Call 911 if necessary. 11/22/172057 <Electronically signed by Juventino Messer MD> Date Juventino Messer MD Cosigner Signature (If Indicated): Date CC: Chavez Young DO URINALYSIS, COMPLETE Collected: 11/22/2017 Status: F Source: [place] 6:17 PM [facility] REPOSITORY Order Comment: Order Date: 11/22/17 [...] URINE SEEN Performed By: #### L400.0001 #### [facility] [address] [place], [place], [address] CBC W/DIFF, AUTOMATED Collected: 11/22/2017 Status: F Source: [place] 6:15 PM [facility] REPOSITORY TYPE CODE TESTS RESULT OUT [...] Lymph 4.42 Performed By: #### L100.0100 #### [facility] [address] [place], [address] BASIC METABOLIC Collected: 11/22/2017 Status: F Source: [place] PROFILE (BMP) 6:15 PM [facility] REPOSITORY TYPE CODE TESTS RESULT OUT [...] Performed By: #### L500.2500, L500.3400, L501.2450 #### [facility] [address] [place], [place], [address] LIVER PROFILE Collected: 11/22/2017 Status: F Source: [place] 6:15 PM [facility] REPOSITORY TYPE CODE TESTS RESULT OUT [...] Performed By: #### L500.2500, L500.3400, L501.2450 #### [facility] [address] [place], [place], [address] LIPASE Collected: 11/22/2017 Status: F Source: [place] 6:15 PM [facility] REPOSITORY TYPE CODE TESTS RESULT OUT OF RANGE REFERENCE UNITS LAB L501.2450 73-393 U/L Normal LIPASE 147 Performed By: #### L500.2500, L500.3400, L501.2450 #### [facility] [address] [place], [place], [address] ABDOMEN/PELVIS WITHOUT Observed: 11/22/2017 Status: F Source: [place] CONT 6:13 PM [facility] REPOSITORY 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 Medical Records Department [address] [place] [address] Emergency Department Summary 10/29/17 1043 MR#: [id number] Acct: [id number] Name: LISS GUZMAN Rep #: [id number] : 1975 41 From: Sabas Bray MD [...] she went to the emergency department at [facility] yesterday. States they checked her urine and [...] flank pain This note was generated with Gendel dictation software. It may contain incorrect words, [...] problems, contact your Primary Care Provider. Call [facility] ([phone]) or report to the closest Emergency Room. Call 911 if necessary. 10/29/17 5969 <Electronically signed by Sabas Bray MD> Date Sabas Valera Signature (If Indicated): Date CC: Chavez Young DO URINALYSIS, COMPLETE Collected: 10/29/2017 Status: F Source: [place] 10:39 AM [facility] REPOSITORY Order Comment: Order Date: 10/29/17 How was Urine Obtained? 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, [address] CBC W/DIFF, AUTOMATED Collected: 10/29/2017 Status: F Source: [place] 10:36 AM [facility] REPOSITORY TYPE CODE TESTS RESULT OUT [...] Lymph 2.69 Performed By: #### L100.0100 #### [facility] [address] [place], [address] COMPREHENSIVE METABOLIC Collected: 10/29/2017 Status: F Source: [facility] 10:36 AM [facility] REPOSITORY TYPE CODE TESTS RESULT OUT [...] 4 Performed By: #### L500.4050, L501.2450 #### [facility] [address] [place], [place], [address] LIPASE Collected: 10/29/2017 Status: F Source: [place] 10:36 AM [facility] REPOSITORY TYPE CODE TESTS RESULT OUT OF RANGE REFERENCE UNITS LAB L501.2450 73-393 U/L Normal LIPASE 342 Performed By: #### L500.4050, L501.2450 #### [facility] [address] [place], [address] ABDOMEN/PELVIS W IV CONT Observed: 10/29/2017 Status: F Source: [place] ONLY 10:27 AM [facility] REPOSITORY [facility] Imaging Services [address] [place] [address] Abdomen/Pelvis W IV Cont ONLY MR#: [id number] Acct: [id number] Name: LISS GUZMAN Rep #: [id number] : 1975 F 41 From: Almita Castanon MD PCP: Chavez Young DO Status: REG ER Study: Abdomen/Pelvis W IV Cont ONLY Date of Exam: 10/29/17 Exam# [id number] Ordering Dr: Sabas Bray MD STUDY: CT [...] CC: Chavez Young DO; Sabas Bray MD Excavating Machine Operator: Signed CBC Collected: 10/28/2017 Status: F Source: [facility] 7:39 PM [facility] REPOSITORY TYPE CODE TESTS RESULT OUT [...] 7.4-10.4 fL MPV 8.7 Performed By: #### CMP, CBC, ANEU, GFR, ADIFF #### [place] [address] .AUTO DIFF Collected: 10/28/2017 Status: F Source: [facility] 7:39 [facility] REPOSITORY TYPE CODE TESTS RESULT OUT OF [...] ) Basophil, 0.00 Absolute Performed By: #### CMP, CBC, ANEU, GFR, ADIFF #### [address] [place], [place] [address] .NEUABS Collected: 10/28/2017 Status: F Source: [facility] 7:39 PM [facility] REPOSITORY TYPE CODE TESTS RESULT OUT OF REFERENCE UNITS RANGE LAB ANEU(LOINC) 2.85-6.16 10 3/mcL Neutrophil, 3.90 Absolute Performed By: #### CMP, CBC, ANEU, GFR, ADIFF #### [address] [place], [place] [address] .GFR Collected: 10/28/2017 Status: F Source: [facility] 7:39 [facility] REPOSITORY TYPE CODE TESTS RESULT OUT OF REFERENCE UNITS RANGE LAB GFRAA(LOINC ml/min/1.73 ) sqm GFR 103 [place] Result Comment: GFR Population mean for , [...] 15 mL/min/1.73 square meters Performed By: #### CMP, CBC, ANEU, GFR, ADIFF #### [address] [place], [place] [address] CMP Collected: 10/28/2017 Status: F Source: [facility] 7:39 [facility] REPOSITORY TYPE CODE TESTS [...] 10-35 IU/L ALT/SGPT 11 Performed By: #### CMP, CBC, ANEU, GFR, ADIFF #### [address] [place], [place] [address] UA Collected: 10/28/2017 Status: F Source: [facility] 7:39 PM [facility] REPOSITORY TYPE CODE TESTS RESULT OUT [...] UA Leuk Est TRACE Performed By: #### UAMICAO, UA #### [address] [place], [place] [address] .URINALYSIS MICROSCOPIC Collected: 10/28/2017 Status: F Source: [place] ([place]) 7:39 PM [facility] REPOSITORY TYPE CODE TESTS RESULT OUT OF RANGE REFERENCE UNITS LAB WBCUA(LOIN None Seen /hpf C) Unknown UA WBC 0-5 LAB RBCUA(LOIN None Seen /hpf C) UA RBC None Seen LAB EPIUA(LOIN None Seen /hpf C) Unknown UA Squam Epithelial 5-10 Performed By: #### UAMICAO, UA #### [address] [place], [place] [address] URINALYSIS, ROUTINE Collected: 10/02/2017 Status: F Source: [place] (DIPSTICK) 10:30 AM [facility] REPOSITORY Order Comment: How was Urine [...] ESTERASE 25 Performed By: #### L400.2010 #### [facility] [address] [place], [address] PROTEIN+CREATININE Collected: Status: F Source: [place] RATIO,URINE 10/02/2017 10:30 AM [facility] REPOSITORY TYPE CODE TESTS RESULT OUT OF RANGE REFERENCE UNITS LAB L501.1200 NO RANGE EST. mg/dL Normal UR CREAT 197.00 LAB L501.1930 <11.9 mg/dL High 28.6 PROTEIN,UR.R AN. LAB L501.1940 0-200 mg/g CRE Normal PROT:CRE 145 RATIO Performed By: #### L501.0900 #### [facility] [address] [place], [address] ERYTHROCYTE SED RATE Collected: 10/02/2017 Status: F Source: [place] 10:30 AM [facility] REPOSITORY TYPE CODE TESTS RESULT OUT OF RANGE REFERENCE UNITS LAB L102.0000 0-20 mm/hr Normal SED RATE < 1 Performed By: #### L101.9900, L100.0100 #### [facility] [address] [facility] [place], [address] CBC W/DIFF, AUTOMATED Collected: 10/02/2017 Status: F Source: [place] 10:30 AM [facility] REPOSITORY TYPE CODE TESTS RESULT OUT [...] 3.42 Performed By: #### L101.9900, L100.0100 #### [facility] [address] [place] [address]. [place], [place], [address] COMPREHENSIVE METABOLIC Collected: 10/02/2017 Status: F Source: [facility] 10:30 AM [facility] REPOSITORY TYPE CODE TESTS RESULT OUT [...] Performed By: #### L500.4050, L501.6710, L505.7010 #### [facility] [address] [place], [address] CRP Collected: 10/02/2017 Status: F Source: [place] 10:30 AM [facility] REPOSITORY TYPE CODE TESTS RESULT OUT [...] Performed By: #### L500.4050, L501.6710, L505.7010 #### [facility] [address] [place], [place], [address] RHEUMATOID FACTOR Collected: 10/02/2017 Status: F Source: [place] 10:30 AM [facility] REPOSITORY TYPE CODE TESTS RESULT OUT OF RANGE REFERENCE UNITS LAB L505.7010 <15 IU/mL Normal RHEUMATOID FAC < 10.0 Performed By: #### L500.4050, L501.6710, L505.7010 #### [facility] [address] [place], [place], [address] HEPATITIS B SURFACE Collected: 10/02/2017 Status: F Source: [place] AG 10:30 AM [facility] REPOSITORY TYPE CODE TESTS RESULT OUT OF RANGE REFERENCE UNITS LAB L3100.0400 Negative Normal HB Negative SURF AG Result Comment: Performed at: [facility] [id number] Sales Marketing Manager: Lucas Marcus PhD, Phone: [phone] Performed at: [address] [place] [id number] Sales Marketing Manager: Jude Andre PhD, Phone: [phone] Performed at: [address] [id number] Sales Marketing Manager: Manas Shankar MD, Phone: [phone] Performed By: #### L3100.0390, L3100.0528, L3100.0625, L3100.5700, L3100.5800, L3410.1400, L4600.0100 #### [facility] (refer to report for specific site) refer to report for address and phone number HEP B SURFACE Collected: 10/02/2017 Status: F Source: [place] ANTIBODIES 10:30 AM [facility] REPOSITORY TYPE CODE TESTS RESULT OUT [...] 10/02/2017 Status: F Source: [place] 10:30 AM [facility] REPOSITORY TYPE CODE TESTS RESULT OUT OF RANGE REFERENCE UNITS LAB L3100.0650 0.0-0.9 s/co ratio Normal HEP C AB 0.1 Result Comment: Negative: < 0.8 Indeterminate: 0.8 - 0.9 Positive: > 0.9 The CDC recommends that a positive HCV antibody result be followed up with a HCV Nucleic Acid Amplification test (091235). Performed By: #### L3100.0390, L3100.0528, L3100.0625, L3100.5700, L3100.5800, L3410.1400, L4600.0100 #### [facility] (refer to report for specific site) refer to report for address and phone number COMPLEMENT C3 Collected: 10/02/2017 Status: F Source: [place] 10:30 AM [facility] REPOSITORY TYPE CODE TESTS RESULT OUT OF RANGE REFERENCE UNITS LAB L3100.5700 82-167 mg/dL Normal COMP C3 104 Performed By: #### L3100.0390, L3100.0528, L3100.0625, L3100.5700, L3100.5800, L3410.1400, L4600.0100 #### [facility] (refer to report for specific site) refer to report for address and phone number COMPLEMENT C4 Collected: 10/02/2017 Status: F Source: [place] 10:30 AM [facility] REPOSITORY TYPE CODE TESTS RESULT OUT OF RANGE REFERENCE UNITS LAB L3100.5800 14-44 mg/dL Low COMP C4 12 Performed By: #### L3100.0390, L3100.0528, L3100.0625, L3100.5700, L3100.5800, L3410.1400, L4600.0100 #### [facility] (refer to report for specific site) refer to report for address and phone number HLA B27 Collected: 10/02/2017 Status: F Source: [place] 10:30 AM [facility] REPOSITORY TYPE CODE TESTS RESULT OUT OF RANGE REFERENCE UNITS LAB L3410.1500 . Normal HLA Negative B27 Result Comment: HLA-B*27 Negative B27 allele interpretation for all loci based on IMGT/HLA database version 3.27 This test was developed and its performance characteristics determined by [facility]. It has not been cleared or approved by the Food and Drug Administration. [facility] CLIA ID Number [id number] This test was performed using PCR (Polymerase [...] IGG ANTIBODIES Collected: 10/02/2017 Status: F Source: [place] 10:30 AM [facility] REPOSITORY TYPE CODE TESTS RESULT OUT OF RANGE REFERENCE UNITS LAB L4600.0100 0-19 units Normal ANTI-CCP 1 447396 Result Comment: Negative <20 Weak positive 20 - 39 Moderate positive 40 - 59 Strong positive >59 Performed By: #### L3100.0390, L3100.0528, L3100.0625, L3100.5700, L3100.5800, L3410.1400, L4600.0100 #### [facility] (refer to report for specific site) refer to report for address and phone number PELVIS 1 OR 2 VIEWS Observed: 10/02/2017 Status: F Source: [place] 10:26 AM [facility] REPOSITORY 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 Machine Operator: Signed ALLERGIES ALLERGIES DATE TYPE / CODE NAME / CODE REACTION SEVERITY SOURCE 06/07/2018 Drug diphenhydram Unknown Unknown [facility] Allergy/4160 ine/[id number] [facility] [address](SNOMED 87(RXNORM) Repository CT) ENCOUNTERS ENCOUNTERS ADMIT/DISCHARGE ACCOUNT NUMBER ADMITTING ENCOUNTER LOCATION SOURCE CLASS 06/15/2018 [id number] Ambulatory [facility] Repository ng:HLiliBERNARDINO 06/07/2018/06/07/20 [id number] Emergency [address] ding:ED Repository 06/05/2018/06/05/20 [id number] Emergency [address] ding:ED Repository 04/22/2018 [id number] Emergency [address] [place] [place] [address] EDRoom: System 444Bed: Repository [id number] 04/18/2018/04/20/20 [id number] White, Inpatient [place] [address] Barbara Encounter [facility] ding:GV4Ntcz Repository : IK155Bvg: 1 04/18/2018 [id number] White, Ambulatory BMSBuilding: [place] Barbara BMS.[facility] Repository 04/18/2018 [id number] White, Ambulatory BMSBuilding: [place] Barbara BMS.[facility] Repository 04/18/2018 [id number] White, Ambulatory BMSBuilding: [place] Barbara BMS.[facility] Repository 04/15/2018/04/15/20 [id number] Emergency BBuilding:ER [address] Repository 03/23/2018/03/23/20 [id number] Emergency BBuilding:ER [address] Repository 02/25/2018/02/26/20 [id number] Emergency BBuilding:ER [address] Repository 11/23/2017/11/25/19 [id number] Linda Ramos Inpatient [address] Repository ng:H.7MRoom: 4P310Snt: 11/22/2017/11/23/19 [id number] Emergency [address] ding:ED Repository 10/29/2017/10/30/19 [id number] Emergency [address] ding:ED Repository 10/28/2017/10/29/19 [id number] Emergency BBuilding:ER [address] Repository 10/02/2017 [id number] Ambulatory [facility] ding:MTLAB Repository PAYERS PAYERS ENCOUNTER GUARANTOR PAYER SUBSCRIBER SOURCE 06/15/2018 LISS Bowen [place] [address] Insurance:MEDICAID OF [facility] Number: Repository [place], [place] [id number] [id number]: 330) Date:7768-40-26LQ [phone] () [place] [address]SG: 06/07/2018 LISS DAUGHERTY M [place] [id number] Insurance:MEDICAIDPol [facility] Number: [id number] [place], [place] [id number] Repository [address]Szr: (330) Date:2018-06-07 [phone] (HP) 06/07/2018 Secondary NOT GIVENUNK [place] Insurance:SELF PAY [facility] Number: Effective Repository Date:2018-06-07 06/05/2018 LISS Bowen Primary LISS Bryanoster [id number] Insurance:MEDICAIDPol [facility]SDOB[facility] Number: [id number], [place] [id number] Repository [address]Ueu: (330) Date:2018-06-05 [phone] (HP) 06/05/2018 Secondary NOT GIVENUNK [place] Insurance:SELF PAY [facility] Number: Effective Repository Date:2018-06-05 04/22/2018 Liss Bowen Primary Liss Bowen [facility] CollinsDOB: Insurance:MedicaidPol CollinsDOB: System icy Number: Effective [id number] Repository [place]ateau Date: [place], [place] [address]Avz: (HP) 04/18/2018 LISS Bowen Primary LISS [place] [id number] Insurance:MEDICAIDPol COLLINSDOB: [facility] icy Number: [id number], [place] [id number] Repository [address]Xvi: (330) Date:2018-04-18 [phone] (HP) 04/18/2018 Secondary NOT GIVENUNK [place] Insurance:SELF PAY [facility] Number: Effective Repository Date:2018-04-18 04/18/2018 LISS Bowen Primary LISS [place] [id number] Insurance:MEDICAIDPol COLLINSDOB: [facility] icy Number: [id number], [place] [id number] Repository [address]Mly: (330) Date:2018-04-18 [phone] (HP) 04/18/2018 Secondary NOT GIVENUNK [place] Insurance:SELF PAY [facility] Number: Effective Repository Date:2018-04-18 04/18/2018 LISS Bryanoster [id number] Insurance:MEDICAIDPol COLLINSDOB: [facility] KAROLINEEAU ic Number: [id number], [place] [id number] Repository [address]Hlc: (330) Date:2018-04-18 [phone] () 04/18/2018 Secondary NOT GIVENUNK [place] Insurance:SELF PAY [facility] Number: Effective Repository Date:2018-04-18 04/18/2018 LISS Bowen Primary LISS [place] [id number] Insurance:MEDICAIDPol COLLINSDOB: [facility] Number: [id number], [place] [id number] Repository [address]Ahy: (330) Date:2018-04-18 [phone] (HP) 04/18/2018 Secondary NOT GIVENUNK [place] Insurance:SELF PAY [facility] Number: Effective Repository Date:2018-04-18 04/15/2018 [facility]ISS [facility]:SELF COLLINSDOB: [facility] PAYPolicy Number: [id number] Repository [place], [place] Date:2018-04-15 - [place], [place] [address]Eob: [phone] Name:[id number]: [phone] ()Tel: [phone] (HP) (WP) [phone] (WP) 03/23/2018 LISS Bowen [facility]: Insurance:SELF COLLINSDOB: [facility] PAYPolicy Number: [id number] Repository [place], [place] Date:2018-03-23 - [place], [place] [address]Axq: [phone] Name:[id number]: [phone] (HP)Tel: [phone]) (HP) (WP) [phone] (WP) 02/25/2018 LISS Bowen Primary LISS Bowen [facility] COLLINSDOB: [facility] Number: [id number] [facility] [id number] [place], [place] Date:2018-02-25 - [place], [place] [address]Aej: [id number]: 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 [phone] (HP)Tel: [phone]) [address] [place] [address] () (WP) [place] [address]KY: [phone] (WP) 11/23/2017 LISS Bowen Primary LISS Bowen [facility] [id number] Insurance:[place] RESOURCESPolic [address]Oye: (842) Number: [phone] (HP) [id number] Date:1385-28-69KK [address] [place] [address]QF: 11/22/2017 LISS Rey Primary Insurance:UMR LISS GUZMAN219 [address] [id number] COLLINSDOB: [facility] Number: [id number] [place], [place] [id number] Repository [address]Jax: 330) Date:7222-32-60XF [phone] () [address] [place] [address]YP: 11/22/2017 Secondary NOT GIVENUNK [place] Insurance:SELF PAY [facility] Number: Effective Repository Date:2017-11-22 10/29/2017 LISS Bowen Primary Insurance:UMR LISS W[place] [id number] [id number] COLLINSDOB: [facility], Number: [id number] [address]Dpi: [id number] Repository Date:5332-73-75TV [address] () [address]FJRSHOBONIER, [place] [address]DE: 10/29/2017 Secondary NOT GIVENUNK [place] Insurance:SELF PAY [facility] Number: Effective Repository Date:2017-10-29 10/28/2017 LISS Bowen Primary LISS Jess[facility] COLLINSDOB: Insurance:UMRPolicy COLLINSDOB: [facility] Emergency Department Number: [id number] Repository [facility] [id number] [place], [place] Date:2017-01-21 - [place], [place] [address]Fym: [phone] [id number]: Name:[facility] [phone] ()Tel: [phone] [place] [address] () () [place] [phone]: [phone] (WP) 10/02/2017 LISS Bowen Primary Insurance:UMR LISS Walton [id number] [id number] [facility] Special[facility] Hospital[facility]: [facility], Number: [id number] [facility] [address]Jae: [id number] Repository Date:[id number] BOX () [address] [place] [id number]: 10/02/2017 Secondary NOT GIVENUNK Isabelle Insurance:SELF PAY [facility] Number: Effective Repository Date:2017-10-02
== END 2018-06-07 10:14 | disposition home or self-care (01) ==
LOC: ED 08:07
PROVIDERS: Emergency Provider Emergency Medicine; Family Provider Family Medicine; PCP Family Medicine
DX: F11.23 Opioid dependence with withdrawal (principal); J20.9 Acute bronchitis, unspecified; Z90.710 Acquired absence of both cervix and uterus; F32.9 Major depressive disorder, single episode, unspecified; F41.9 Anxiety disorder, unspecified; Z72.0 Tobacco use
CPT/HCPCS: 71045; 80053; 80307; 80320; 80329; 85025; 93005; 99282; G0480

== ENCOUNTER 2018-08-28 17:32 | Emergency (ER) | payer MEDICAID, SELFPAY ==
[2018-08-28 17:33] VITALS: BP 132/77; PULSE 89; RESP 18; TEMP 36.4; O2SAT 99; BMI 24.3
--- NOTE | 2018-08-28 18:19 | RAD_ITS ---
STUDY: X-RAY - LEFT KNEE REASON FOR EXAM: Female, 42 years old. Fall, anterior knee pain. TECHNIQUE: 3 view(s) of the knee. COMPARISON: None. FINDINGS: Normal visualized distal femur. There is early spurring of the medial tibial spine. Normal visualized proximal fibula. Normal patella. There is no demonstrated fracture. Normal medial femorotibial compartment. Normal lateral femorotibial compartment. Normal patellofemoral articulation. Normal proximal tibiofibular articulation. There is no demonstrated joint effusion. The soft tissue structures are unremarkable. RAD/Knee 3 Views IMPRESSION: No acute fracture of the left knee. Electronically Signed: Holger Montague MD at 18:56 EST , Service support ,
--- NOTE | 2018-08-28 18:22 | ED.DCSUM_ITS ---
- ER Visit Summary Date of Service: 08/28/18 Chief Complaint: Fall complaining of left knee pain History of Present Illness: The patient is a 42 F no dyspnea past medical history. Patient states that she was trying to put on her pants on Monday morning she went to move tripped over her pants and injured her left knee. She does not remember specifically striking her knee which she said since that time has had discomfort in her knees primarily the left. She is able to walk. The pain is actually worse with bending her knee. Denies any prior knee history of prior knee surgery. Denies any hip pain. Physical Examination: Well-appearing middle-age female. Vital signs are good s he is afebrile. HEENT exam atraumatic. Pupils round reactive light. Neck nontender. Normal range of motion. Lungs clear to auscultation bilaterally. Heart regular rhythm no murmur. Chest wall nontender. Abdomen soft nontender. Pelvic girdle intact. Patient is moving all 4 extremities. Neurovascular intact. She is a very minor bruise to her left knee. She has full flexion- extension of both hips, knees and ankles. She has minimal tenderness to the left lateral knee. The ACL and PCL, MCL and LCL are all intact. There is no effusion. There is no significant swelling. No bony deformity. She is able to flex and extend her left knee and has more discomfort with flexion. The left lower leg is nontender. Nerve intact. Normal touch sensation. Dorsi and plantar flexion intact. Right lower extremity is unremarkable. Upper extremities are normal. Back is nontender. Neurologically she is awake alert with no focal motor deficits. Test Results: Left knee x-ray with 3 views shows no acute abnormality. No bony deformity. No fracture. No dislocation. Read by myself. Emergency Department Course and Treatment: I went back to the room to reevaluate patient go over x-ray results with her around 1838 PM and she left without being discharged. She had told the nurse that she had a sick relative at home that she had to attend to. I had the nurse attempt to call her and was unable to reach her via cell phone. She left a message to call and if she had any questions. Treatment Plan: Ice to the left knee. Motrin for pain. Follow-up if not improving. Disposition: Discharge Impression: Recent fall Left knee contusion Left Prior to discharge This note was generated with Dragon dictation software. It may contain incorrect words, spelling, and punctuation that were not noted in review of the chart prior to signing ED Disposition - Plan for ED Patient: Disposition: Home or Assisted Living Instructions: ED Contusion Lower Ext Referrals: Miguel A Young DO [Primary Care Provider] - 1 Week if not improving Additional Instructions: Ice to left knee. Tylenol and Motrin for pain. Follow-up with not improving in 1-2 weeks.
--- NOTE | 2018-08-28 18:39 | ED.DEP ---
ED Disposition - Plan for ED Patient: Disposition: Home or Assisted Living Instructions: ED Contusion Lower Ext Referrals: Miguel A Young DO [Primary Care Provider] - 1 Week if not improving Additional Instructions: Ice to left knee. Tylenol and Motrin for pain. Follow-up with not improving in 1-2 weeks.
--- NOTE | 2018-08-28 18:44 | ED.RN ---
per dr. escalante attempted to call pt to give results. left vm stating that she could call in and speak with dr. escalante if she wanted her results.
== END 2018-08-28 18:45 | disposition left against medical advice (07) ==
PROVIDERS: Emergency Provider Emergency Medicine; Family Provider Family Medicine; PCP Family Medicine
DX: S80.02XA Contusion of left knee, initial encounter (principal); W22.8XXA Striking against or struck by other objects, initial encounter; Y93.9 Activity, unspecified; Y92.89 Other specified places as the place of occurrence of the external cause; Y99.8 Other external cause status; Z72.0 Tobacco use
CPT/HCPCS: 73562; 99282

== ENCOUNTER 2018-09-17 12:52 | Inpatient (IN) | payer MEDICAID, SELFPAY ==
[2018-09-17 13:07] VITALS: BMI 26.7; BMI 26.8
--- NOTE | 2018-09-17 13:20 | HP.PCM_ITS ---
Problem List (1) Benzodiazepine abuse, continuous Status: Chronic (2) Opiate abuse, continuous Status: Chronic (3) Anxiety and depression Status: Chronic (4) Tobacco use Status: Chronic (5) Acute opioid withdrawal Status: Acute History of Present Illness Date of Admission: 09/17/18 Chief Complaint: Stuffy nose and restless legs The patient is a 42 year old F with past medical history is again for depression with anxiety, history of polysubstance abuse including benzos and opioid present with stuffy nose and restless legs. Patient reports daily use of Percocet. She presented wanting to undergo medical stabilization. Patient reports 1 previous detoxification at the facility in [facility]. In addition to patient restless legs and stuffy nose patient reports some cramping in her abdomen as well as nausea. An assessment of acute opiate withdrawal was made on admission admitted to regular nursing floor for further management Past Medical History Past Medical History (Chronic Problems): Chronic Problems Opiate abuse, continuous (Chronic) Benzodiazepine abuse, continuous (Chronic) Tobacco use (Chronic) Anxiety and depression (Chronic) Allergies diphenhydramine [From Benadryl] Adverse Reaction (Verified 04/18/18 14:03) Other anxiety Home Medications: Ambulatory Orders Medication Instructions Recorded Duloxetine Hcl [Cymbalta] 30 mg PO BID 04/18/18 Nicotine [Nicoderm Cq] 21 mg TRANSDERM. 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 Smoking Status: Current every day smoker - *Family History Maternal History Items: Diabetes Paternal History Items: Diabetes Review of Systems Constitutional: Reports: Malaise, Weakness, Fatigue HEENT: Denies: Head Aches, Sinus Congestion, Sinus Drainage Cardiovascular: Denies: Chest Pain, Orthopnea, Palpitations, Paroxysmal Noc. Dyspnea Respiratory: Denies: Cough, Shortness of breath at rest, Shortness of breath upon exertion, Sputum production Gastrointestinal: Reports: Abdominal Pain, Nausea Genitourinary: Denies: Dysuria, Frequency, Hematuria, Urgency Musculoskeletal: Reports: Muscle pain Skin: Denies: Rash Neurological: Denies: Focal weakness, Numbness, Tingling Psychiatric: Reports: Anxiety Hematologic/ Lymphatic: Denies: Easy Bruising, Easy Bleeding VTE Information - Inpt Only VTE Present on Admission: No VTE Mechan Device Prophylaxis: None VTE Pharm Prophylaxis ordered?: No Reason prophylaxis not ordered:: Treatment Not Indicated Patient Problems: Active and Suspected Problems Acute opioid withdrawal (Acute) Objective: GENERAL: cooperative HEENT: Atraumatic; moist oral mucosa EYES; Anicteric, Normal Conjunctiva NECK; supple, normal thyroid, no distended JVD. RESPIRATORY: Diminished to auscultation bilaterally, CARDIOVASCULAR: Regular S1 S2, no audible murmurs GI: soft, non-tender, normoactive bowel sounds, : No Renal angle tenderness; EXTREMITIES: No edema, no clubbing, no cyanosis. MUSCULOSKELETAL: No Joint Tenderness; no muscle waisting NEURO: Awake; no lateralizing signs. SKIN: No Rash PSYCH; Normal affect - Physical Exam Weight: 77.564 kg Body Mass Index (BMI) 26.7 Assessment/Plan All Active Problems Acute opioid withdrawal (Acute) Patient is a 42 old lady with history of opioid dependence (Percocet) presented with acute opiate withdrawal 1. Acute opiate withdrawal patient has been admitted to the regular nursing floor for medical stabilization using Subutex of the [facility] protocol 2. Opiate dependence patient counseled on cessation 3. Depression with anxiety 4. Tobacco dependence counseled on cessation, offered nicotine patch for tobacco cravings 5. DVT prophylaxis low risk did encourage early ambulation Code Visit Inpatient E&M: 85412 Init Hosp L3
[2018-09-17 13:21] VITALS: BP 137/88; PULSE 91; RESP 18; TEMP 36.8
[2018-09-17] MEDS: chlordiazePOXIDE 25 MG Capsule PO ×3 (13:46→21:03)
[2018-09-17] MEDS: Ondansetron ODT 4 MG Tablet PO (13:46)
[2018-09-17] MEDS: Buprenorphine HCl 2 MG TAB.SUBL SL ×2 (13:46→21:07)
[2018-09-17] MEDS: Lactated Ringers 1,000 ML 125 ML IV (13:46)
[2018-09-17 14:02] LABS: Absolute Lymphocyte Count 3.02 X10^3/ul (0.83-4.51); Absolute Neutrophil Count 4.3 X10^3/uL (2.0-7.7); Basophil# 0.02 X10^3/uL; Basophil% 0.2 % (0-1); Eosinophil# 0.17 X10^3/uL; Eosinophils% 2.1 % (0-5); Hematocrit 39.7 % (37-47); Hemoglobin 13.3 g/dl (12.0-15.0); Lymphocyte # 3.02 X10^3/ul (4.0); Mean Corp Hgb Conc 33.5 g/gl (32-36); Mean Corpuscular Hgb 29.8 pg (27.0-32.0); Mean Corpuscular Volume 88.8 fL (81-99); Mean Platelet Vol. 10.7 fl (6.2-12.0); Monocyte# 0.64 X10^3/uL; Monocyte% 7.8 % (0-10); Neutrophil # 4.28 X10^3/uL (2.7-7.7); Neutrophil % 52.5 % (47-70); Platelet Count 266 K/mm3 (150-450); RBC Distribution Width CV 12.3 % (11.6-14.6); RBC Distribution Width SD 39.5 fl (35.1-43.9); Red Blood Count 4.47 M/mm3 (4.2-5.4); White Blood Count 8.2 K/mm3 (4.4-11.0)
[2018-09-17 14:03] LABS: POSITIVE COUNT NO; POSITIVE DIFFERENTIAL NO; POSITIVE MORPHOLOGY NO
[2018-09-17 14:10] LABS: International Normalized Ratio 1.1
[2018-09-17 14:18] LABS: ALB/GLOB Ratio 1.1 RATIO (0.9-2.4); AST(SGOT) 19 U/L (15-37); Alanine Aminotransfer ALT/SGPT 21 U/L (13-56); Albumin, Serum 4.2 g/dL (3.2-5.0); Alkaline Phosphatase 106 U/L (45-117); Amylase 74 U/L (25-115); Anion Gap 9 (5-15); BUN 9 mg/dL (7-18); BUN/Creat Ratio 11.5 RATIO (10-20); Chloride 109 mmol/L (98-107); Creatinine, Serum 0.78 mg/dL (0.55-1.02); EST Glomerular Filtration Rate 85 mL/min (>60); Est Glom Filt Rate - Afr Amer 103 mL/min (>60); Estimated Creatinine Clearance 90.44 ml/min; Globulin 3.7 g/dL (2.2-4.2); Glucose 83 mg/dL (74-106); Lipase 185 U/L (73-393); Potassium 3.8 mmol/L (3.5-5.1); Protein, Total 7.9 g/dL (6.4-8.2); Sodium Level 143 mmol/L (136-145)
[2018-09-17 14:20] LABS: Pregnancy, Serum, hCG Quali. NEGATIVE Negative (0-9 Nonpreg)
[2018-09-17 14:39] LABS: Amphetamine Urine VISTA NEGATIVE (<1000 ng/mL); Barbiturate Urine VISTA NEGATIVE (< 200 ng/mL); Benzodiazepine Urine VISTA POSITIVE (< 200 ng/mL); Cocaine Urine VISTA NEGATIVE (< 300 ng/mL); Ecstacy Urine VISTA POSITIVE (< 500 ng/mL); Methadone Urine VISTA NEGATIVE (< 300 ng/mL); PCP Urine VISTA NEGATIVE (< 25 ng/mL); THC Urine VISTA NEGATIVE (< 50 ng/mL); Vista UDS pH Range 5
[2018-09-17 14:46] LABS: Bacteria 0 SEEN /hpf (None Seen); Mucous, Urine 0 SEEN /hpf (<or=2+); White Blood Cells 0 SEEN /hpf (0-5)
[2018-09-17 14:51] LABS: Color, Urine Yellow (Yellow); Glucose, Dipstick Normal (Normal); Ketone-Dipstick Negative (Negative); Leukocyte Esterase-Dipstick Negative /ul (Negative); Nitrite-Dipstick Negative (Negative); Occult Blood-Urine 10 /ul (Negative); Protein-Dipstick Negative (Negative); Urine Bilirubin Dipstick Negative (Negative); Urine Clarity Clear (Clear); Urine Urobilinogen Normal (Normal)
[2018-09-17 14:54] LABS: Red Blood Cells-Urine 0-5 SEEN /hpf (0-5); Squamous Epithelial Cells - UA 0-5 SEEN /hpf (5-10)
[2018-09-17 17:00] VITALS: BP 127/75; PULSE 80; RESP 16; TEMP 37
[2018-09-17] MEDS: Pramipexole Di-HCl 0.25 MG Tablet PO (17:06)
[2018-09-17] MEDS: cloNIDine HCl 0.1 MG Tablet PO (18:28)
[2018-09-17 19:18] VITALS: O2SAT 97
[2018-09-17 21:01] VITALS: BP 119/70; PULSE 89; RESP 16; TEMP 36.6; O2SAT 96
[2018-09-17 21:02] VITALS: BP 119/70; PULSE 89; RESP 16; TEMP 36.6
[2018-09-17] MEDS: Ibuprofen 600 MG Tablet PO (21:34)
[2018-09-17] MEDS: traZODone 50 MG Tablet PO (22:22)
[2018-09-17] MEDS: 0.9% NaCl Peripheral Flush Adult/Peds IV (22:29)
[2018-09-18] VITALS (7 sets, daily range): BP systolic 94–111; BP diastolic 52–65; PULSE 70–75; RESP 16–18; TEMP 36.6–36.8; O2SAT 96–99
[2018-09-18] MEDS: chlordiazePOXIDE 25 MG Capsule PO ×4 (01:29→16:56)
[2018-09-18] MEDS: Methocarbamol 750 MG Tablet PO ×2 (01:35→13:51)
[2018-09-18] MEDS: cloNIDine HCl 0.1 MG Tablet PO (01:35)
[2018-09-18] MEDS: Ondansetron ODT 4 MG Tablet PO ×2 (01:35→16:56)
[2018-09-18] MEDS: Buprenorphine HCl 2 MG TAB.SUBL SL ×3 (05:36→21:22)
--- NOTE | 2018-09-18 05:40 | NURSING ---
pt states she is nervous about the taper. Reports that she takes 25 Percocet every 2 days.
--- NOTE | 2018-09-18 08:10 | PCM.PN.HOSP ---
Patient Problems: Active and Suspected Problems Acute opioid withdrawal (Acute) Subjective: Patient is a 42-year-old lady with history of opioid dependence (was using 50 mg of Percocet a day) who presented with acute opioid withdrawal Patient seen complains of anxiety. Also complains of leg twitching as well as excessive perspiration. Objective: GENERAL: cooperative HEENT: Atraumatic; moist oral mucosa EYES; Anicteric, Normal Conjunctiva NECK; supple, normal thyroid, no distended JVD. RESPIRATORY: Diminished to auscultation bilaterally, CARDIOVASCULAR: Regular S1 S2, no audible murmurs GI: soft, non-tender, normoactive bowel sounds, : No Renal angle tenderness; EXTREMITIES: No edema, no clubbing, no cyanosis. MUSCULOSKELETAL: No Joint Tenderness; no muscle waisting NEURO: Awake; no lateralizing signs. SKIN: No Rash PSYCH; Normal affect Vitals/I&O's: Vital Signs Temp Pulse Resp BP Pulse Ox 97.8 F 71 16 105/60 96 09/18/18 05:34 09/18/18 05:34 09/18/18 05:34 09/18/18 05:34 09/18/18 01:37 Oxygen Delivery Method Room Air Weight: 77.564 kg Body Mass Index (BMI) 26.7 Intake and Output for Last 24 Hours 09/16/18 09/17/18 09/18/18 23:59 23:59 23:59 Intake Total 873 / 873 1388 / 1388 Balance 873 / 873 1388 / 1388 Laboratory Results 09/17/18 13:45: WBC 8.2, RBC 4.47, Hgb 13.3, Hct 39.7, MCV 88.8, MCH 29.8, MCHC 33.5, RDW 12.3, RDW Differential 39.5, Plt Count 266, MPV 10.7, Immature Gran % (Auto) 0.400, Neut % (Auto) 52.5, Lymph % (Auto) 37.0, [place] % (Auto) 7.8, Eos % (Auto) 2.1, Baso % (Auto) 0.2, Absolute Neuts (auto) 4.3, Absolute Lymphs (auto) 3.02, Total Counted Not Reportable 09/17/18 13:45: PT 14.0, INR 1.1 09/17/18 13:45: Sodium 143, Potassium 3.8, Chloride 109 H, Carbon Dioxide 25.0, Anion Gap 9, BUN 9, Creatinine 0.78, Estim Creat Clear Calc 90.44, Est GFR (MDRD) Af Amer 103, Est GFR (MDRD) Non-Af 85, BUN/Creatinine Ratio 11.5, Glucose 83, Calcium 9.0, Total Bilirubin 0.30, AST 19, ALT 21, Alkaline Phosphatase 106, Total Protein 7.9, Albumin 4.2, Globulin 3.7, Albumin/Globulin Ratio 1.1, Amylase 74, Lipase 185 09/17/18 13:45: Ethyl Alcohol 7.0 09/17/18 13:45: Serum , Qual NEGATIVE 09/17/18 14:15: Urine Opiates Screen POSITIVE H, Urine Methadone Screen NEGATIVE, Ur Barbiturates Screen NEGATIVE, Ur Phencyclidine Scrn NEGATIVE, Ur Amphetamines Screen NEGATIVE, U Methamphetamin-MDMA POSITIVE H, U Benzodiazepines Scrn POSITIVE H, Urine Cocaine Screen NEGATIVE, U Cannabinoids Screen NEGATIVE, Ur Drug Screen Comment 09/17/18 14:15: Urine Color Yellow, Urine Clarity Clear, Urine pH 5.0, Ur Specific [place] 1.020, Urine Protein Negative, Urine Glucose (UA) Normal, Urine Ketones Negative, Urine Occult Blood 10 H, Urine Nitrite Negative, Urine Bilirubin Negative, Urine Urobilinogen Normal, Ur Leukocyte Esterase Negative, Urine RBC 0-5 SEEN, Urine WBC 0 SEEN, Ur Squamous Epith Cells 0-5 SEEN, Urine Bacteria 0 SEEN, Urine Mucus 0 SEEN Current Medications Acetaminophen (Tylenol) 500 mg PO Q4H PRN PRN PRN Reason: Temp > 100.4 F Al Hydroxide/Mg Hydroxide (Mylanta Ii) 30 ml PO Q6H PRN PRN PRN Reason: dyspesia Bisacodyl (Dulcolax) 10 mg RECTAL DAILY PRN PRN Reason: Constipation Buprenorphine HCl (Buprenorphine Hcl) 4 mg SL Q8H ANGEL; Taper Stop: 09/20/18 17:14 Last Admin: 09/18/18 05:36 Dose: 4 mg Chlordiazepoxide (Librium) 25 mg PO Q4H ANGEL Stop: 09/18/18 09:16 Last Admin: 09/18/18 05:36 Dose: 25 mg Chlordiazepoxide (Librium) 25 mg PO Q6H PRN PRN PRN Reason: Moderate-Severe Anxiety Clonidine (Catapres) 0.1 mg PO Q2H PRN PRN PRN Reason: Hot/Cold Sweats or Anxiety Last Admin: 09/18/18 01:35 Dose: 0.1 mg Dicyclomine HCl (Bentyl) 20 mg PO Q6H PRN PRN PRN Reason: Abdomnial Discomfort Hydroxyzine HCl (Vistaril Vial) 50 mg IM Q6H PRN PRN PRN Reason: Breakthrough Anxiety Hydroxyzine Pamoate (Vistaril Pamoate Capsule) 50 mg PO Q6H PRN PRN PRN Reason: Mild Anxiety Ibuprofen (Motrin) 600 mg PO Q8H PRN PRN PRN Reason: Mild-Moderate Pain (1-5/10) Last Admin: 09/17/18 21:34 Dose: 600 mg Loperamide HCl (Imodium) 2 - 4 mg PO UD PRN PRN Reason: LOOSE STOOLS Magnesium Hydroxide (Milk Of Magnesia) 30 ml PO DAILY PRN PRN PRN Reason: Constipation Methocarbamol (Methocarbamol) 750 mg PO Q6H PRN PRN PRN Reason: Muscle Aches Last Admin: 09/18/18 01:35 Dose: 750 mg Nicotine (Nicoderm Cq (Pbkc)) 21 mg TRANSDERM. DAILY [facility] Nutritional Formula (Lactose Free) (Ensure Enlive) 120 ml PO 4X/DAY [facility] Last Admin: 09/17/18 22:22 Dose: 120 ml Ondansetron HCl (Zofran Odt) 4 mg PO Q6H PRN PRN PRN Reason: NAUSEA Last Admin: 09/18/18 01:35 Dose: 4 mg Pramipexole Dihydrochloride (Mirapex) 0.25 mg PO Q12H PRN PRN PRN Reason: Restless Legs Last Admin: 09/17/18 17:06 Dose: 0.25 mg Senna (Senokot) 1 tablet PO QHS PRN PRN Reason: Constipation Sodium Chloride () 5 - 15 ml IV UD PRN PRN Reason: SALINE FLUSH Last Admin: 09/17/18 22:29 Dose: 10 ml Trazodone HCl (Desyrel) 50 mg PO QHS [facility] Last Admin: 09/17/18 22:22 Dose: 50 mg Medical Necessity - Tobacco Use Smoking Status: Current every day smoker Assessment/Plan All Active Problems Acute opioid withdrawal (Acute) Patient is a 42 old lady with history of opioid dependence (Percocet?50 mg of Percocet a day) presented with acute opiate withdrawal 1. Acute opiate withdrawal patient has been admitted to the regular nursing floor for medical stabilization using Subutex of the [facility] protocol patient seen on 09/18/2018 still remains significantly symptomatic 2. Opiate dependence patient counseled on cessation 3. Depression with anxiety 4. Tobacco dependence counseled on cessation, offered nicotine patch for tobacco cravings 5. DVT prophylaxis low risk did encourage early ambulation Code Visit Inpatient E&M: 16777 Subs Hosp L3
[2018-09-18] MEDS: Ibuprofen 600 MG Tablet PO ×2 (09:40→21:25)
[2018-09-18] MEDS: Pramipexole Di-HCl 0.25 MG Tablet PO ×2 (09:41→22:51)
--- NOTE | 2018-09-18 11:53 | NEWVISION ---
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
--- NOTE | 2018-09-18 15:59 | CHAPLAIN ---
Type of Pastoral Visit _x__ Initial Visit ___ Follow-up Visit ___ On-call Visit ___ General Patient Visit ___ Spiritual Assessment ___ Family Conference ___ Bereavement ___ Rapid Response ___ Code Blue ___ Other (describe below) Pastoral Care Referral From _x__ Patient ___ Family ___ Nurse ___ Physician ___ Fish Liver Sorter ___ Creative Art Director ___ Other (describe below) Sacrament/Intervention _x__ Active listening ___ Anointing ___ Taoism ___ Bereavement ___ Communion _x__ Cintia exploration ___ _x__ Life review _x__ Prayer ___ Reconciliation ___ Sacrament of Sick _x__ Supportive presence ___ Wedding ___ Other (describe below) Pastoral Comments patient has been seen before in previous admission; pt reviews her life situation and 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
[2018-09-18] MEDS: traZODone 50 MG Tablet PO (22:46)
[2018-09-19 05:02] VITALS: BP 102/59; PULSE 76; RESP 16; TEMP 36.6
[2018-09-19] MEDS: Buprenorphine HCl 2 MG TAB.SUBL SL ×2 (05:10→17:25)
[2018-09-19] MEDS: hydrOXYzine PAM 25 MG Capsule 50 MG PO (05:10)
--- NOTE | 2018-09-19 08:25 | PCM.PN.HOSP ---
Patient Problems: Active and Suspected Problems Acute opioid withdrawal (Acute) Subjective: Patient seen complains of feeling tired. Her plans following discharge is to go to residential facility to continue with her long-term rehab. Objective: GENERAL: cooperative HEENT: Atraumatic; moist oral mucosa EYES; Anicteric, Normal Conjunctiva NECK; supple, normal thyroid, no distended JVD. RESPIRATORY: Diminished to auscultation bilaterally, CARDIOVASCULAR: Regular S1 S2, no audible murmurs GI: soft, non-tender, normoactive bowel sounds, : No Renal angle tenderness; EXTREMITIES: No edema, no clubbing, no cyanosis. MUSCULOSKELETAL: No Joint Tenderness; no muscle waisting NEURO: Awake; no lateralizing signs. SKIN: No Rash PSYCH; Normal affect Vitals/I&O's: Vital Signs Temp Pulse Resp BP Pulse Ox 97.9 F 76 16 102/59 L 99 09/19/18 05:02 09/19/18 05:02 09/19/18 05:02 09/19/18 05:02 09/18/18 21:21 Oxygen Delivery Method Room Air Weight: 77.564 kg Body Mass Index (BMI) 26.7 Intake and Output for Last 24 Hours 09/17/18 09/18/18 09/19/18 23:59 23:59 23:59 Intake Total 873 / 873 2988 / 2988 200 / 200 Balance 873 / 873 2988 / 2988 200 / 200 Current Medications Acetaminophen (Tylenol) 500 mg PO Q4H PRN PRN PRN Reason: Temp > 100.4 F Al Hydroxide/Mg Hydroxide (Mylanta Ii) 30 ml PO Q6H PRN PRN PRN Reason: dyspesia Bisacodyl (Dulcolax) 10 mg RECTAL DAILY PRN PRN Reason: Constipation Buprenorphine HCl (Buprenorphine Hcl) 2 mg SL Q12H ANGEL; Taper Stop: 09/20/18 17:14 Last Admin: 09/19/18 05:10 Dose: 2 mg Chlordiazepoxide (Librium) 25 mg PO Q6H PRN PRN PRN Reason: Moderate-Severe Anxiety Last Admin: 09/18/18 16:56 Dose: 25 mg Clonidine (Catapres) 0.1 mg PO Q2H PRN PRN PRN Reason: Hot/Cold Sweats or Anxiety Last Admin: 09/18/18 01:35 Dose: 0.1 mg Dicyclomine HCl (Bentyl) 20 mg PO Q6H PRN PRN PRN Reason: Abdomnial Discomfort Hydroxyzine HCl (Vistaril Vial) 50 mg IM Q6H PRN PRN PRN Reason: Breakthrough Anxiety Hydroxyzine Pamoate (Vistaril Pamoate Capsule) 50 mg PO Q6H PRN PRN PRN Reason: Mild Anxiety Last Admin: 09/19/18 05:10 Dose: 50 mg Ibuprofen (Motrin) 600 mg PO Q8H PRN PRN PRN Reason: Mild-Moderate Pain (1-5/10) Last Admin: 09/18/18 21:25 Dose: 600 mg Loperamide HCl (Imodium) 2 - 4 mg PO UD PRN PRN Reason: LOOSE STOOLS Magnesium Hydroxide (Milk Of Magnesia) 30 ml PO DAILY PRN PRN PRN Reason: Constipation Methocarbamol (Methocarbamol) 750 mg PO Q6H PRN PRN PRN Reason: Muscle Aches Last Admin: 09/18/18 13:51 Dose: 750 mg Nicotine (Nicoderm Cq (Pbkc)) 21 mg TRANSDERM. DAILY ANGEL Last Admin: 09/19/18 07:34 Dose: Not Given Ondansetron HCl (Zofran Odt) 4 mg PO Q6H PRN PRN PRN Reason: NAUSEA Last Admin: 09/18/18 16:56 Dose: 4 mg Pramipexole Dihydrochloride (Mirapex) 0.25 mg PO Q12H PRN PRN PRN Reason: Restless Legs Last Admin: 09/18/18 22:51 Dose: 0.25 mg Senna (Senokot) 1 tablet PO QHS PRN PRN Reason: Constipation Sodium Chloride () 5 - 15 ml IV UD PRN PRN Reason: SALINE FLUSH Last Admin: 09/17/18 22:29 Dose: 10 ml Trazodone HCl (Desyrel) 50 mg PO QHS ANGEL Last Admin: 09/18/18 22:46 Dose: 50 mg Medical Necessity - Tobacco Use Smoking Status: Current every day smoker Assessment/Plan All Active Problems Acute opioid withdrawal (Acute) Patient is a 42 old lady with history of opioid dependence (Percocet?50 mg of Percocet a day) presented with acute opiate withdrawal 1. Acute opiate withdrawal patient has been admitted to the regular nursing floor for medical stabilization using Subutex of the [facility] protocol patient seen on 09/18/2018 still remains significantly symptomatic. Patient improving as of today 1219. Plan is for patient to be discharged on 09/20/2018 if she continues to improve. 2. Opiate dependence patient counseled on cessation 3. Depression with anxiety 4. Tobacco dependence counseled on cessation, offered nicotine patch for tobacco cravings 5. DVT prophylaxis low risk did encourage early ambulation Code Visit Inpatient E&M: 32668 Subs Hosp L2
[2018-09-19 09:36] VITALS: BP 107/62; PULSE 78; RESP 18; TEMP 36.8; O2SAT 96
[2018-09-19 09:39] VITALS: RESP 16
[2018-09-19] MEDS: Ondansetron ODT 4 MG Tablet PO (09:44)
[2018-09-19] MEDS: Ibuprofen 600 MG Tablet PO ×2 (09:44→20:20)
[2018-09-19] MEDS: chlordiazePOXIDE 25 MG Capsule PO ×2 (09:44→20:20)
[2018-09-19 17:16] VITALS: BP 100/56; PULSE 75; RESP 18; TEMP 36.7; O2SAT 96
[2018-09-19 17:19] VITALS: RESP 16
[2018-09-19] MEDS: Methocarbamol 750 MG Tablet PO ×2 (17:25→23:29)
[2018-09-19] MEDS: Pramipexole Di-HCl 0.25 MG Tablet PO (17:25)
[2018-09-19 22:00] VITALS: BP 110/66; PULSE 78; RESP 18; TEMP 36.7
[2018-09-19] MEDS: Acetaminophen 500 MG Tablet PO (23:29)
[2018-09-20 05:06] VITALS: BP 108/60; PULSE 70; RESP 18; TEMP 36.6
[2018-09-20] MEDS: Buprenorphine HCl 2 MG TAB.SUBL SL (05:08)
[2018-09-20] MEDS: Pramipexole Di-HCl 0.25 MG Tablet PO (09:05)
[2018-09-20] MEDS: chlordiazePOXIDE 25 MG Capsule PO (09:05)
[2018-09-20] MEDS: Methocarbamol 750 MG Tablet PO (09:05)
--- NOTE | 2018-09-20 09:23 | DCINST_ITS ---
- Discharge Diagnoses Current Active Problems: Current Active and Chronic Problems Acute opioid withdrawal (Acute) You will use the following diet at home:: No restrictions Discharge Activity: May not drive while taking narcotic pain medications. Allergies/Adverse Reactions: Allergies diphenhydramine [From Benadryl] Adverse Reaction (Verified 04/18/18 14:03) Other anxiety Medications to take at Discharge Duloxetine Hcl [Cymbalta] 30 mg PO BID 04/18/18 Nicotine [Nicoderm Cq] 21 mg TRANSDERM. DAILY #30 patch 04/20/18 Primary Care Physician: Care Physician,No Primary [Primary Care Provider] - Please follow up with your Primary Care Physician in: in 1-2 weeks Test Results: Test results from this visit will be discussed in further detail at your follow- up appointment, if applicable. Proposed Discharge Date: 09/20/18
--- NOTE | 2018-09-20 09:23 | PCM.DC.SUM ---
Discharge Date and Diagnosis - Problem List Patient Problems: Active and Suspected Problems Acute opioid withdrawal (Acute) Date of Admission: 09/17/18 Date of Discharge: 09/20/18 - Primary Discharge Diagnosis Active and Suspected Problems Acute opioid withdrawal (Acute) - Secondary Discharge Diagnosis Chronic Problems Opiate abuse, continuous (Chronic) Benzodiazepine abuse, continuous (Chronic) Tobacco use (Chronic) Anxiety and depression (Chronic) Hospital Course and Treatment Operations: None Summary of Care Provided: Patient is a 42 old lady with history of opioid dependence (Percocet?50 mg of Percocet a day) presented with acute opiate withdrawal 1. Acute opiate withdrawal patient has been admitted to the regular nursing floor for medical stabilization using Subutex of the [place] [employer] protocol 2. Opiate dependence patient counseled on cessation 3. Depression with anxiety 4. Tobacco dependence counseled on cessation, offered nicotine patch for tobacco cravings 5. DVT prophylaxis low risk did encourage early ambulation Patient Problems: Active and Suspected Problems Acute opioid withdrawal (Acute) - Physical Exam General: Alert Oral: Moist Mucosa Neck: Supple Lungs: Clear to auscultation Cardiovascular: Regular rate, Regular Rhythm Neurological: Neuro grossly intact Psych/Mental Status: Normal Affect Vital Signs Temp Pulse Resp BP Pulse Ox 97.9 F 70 18 108/60 96 09/20/18 05:06 09/20/18 05:06 09/20/18 05:06 09/20/18 05:06 09/19/18 17:16 Oxygen Delivery Method Room Air Weight: 77.564 kg Body Mass Index (BMI) 26.7 Intake and Output for Last 24 Hours 09/18/18 09/19/18 09/20/18 23:59 23:59 23:59 Intake Total 2988 / 2988 2440 / 2440 Balance 2988 / 2988 2440 / 2440 Discharge Diet: No Restrictions Discharge Activity: May not drive while taking narcotic pain medications. Home Medications: Medications to take at Discharge Duloxetine Hcl [Cymbalta] 30 mg PO BID 04/18/18 Nicotine [Nicoderm Cq] 21 mg TRANSDERM. DAILY #30 patch 04/20/18 Primary Care Physician: Care Physician,No Primary [Primary Care Provider] - Please follow up with your Primary Care Physician in: in 1-2 weeks Disposition: Home Minutes spent on discharge:: 35 Patient Condition:: Stable Medical Necessity - Tobacco Use Smoking Status: Current every day smoker Tobacco Use: Cigarettes Meaningful Use Info Meaningful Use Diagnoses (Choose all that apply): None applicable Code Visit Inpatient E&M: 77730 Disch Hosp
[2018-09-20] MEDS: Ondansetron ODT 4 MG Tablet PO (09:58)
[2018-09-20] MEDS: Ibuprofen 600 MG Tablet PO (09:58)
[2018-09-20 10:00] VITALS: BP 106/70; PULSE 68; RESP 18; TEMP 36.8
[2018-09-20 11:31] VITALS: BP 108/64; PULSE 65; RESP 18; TEMP 37; O2SAT 98
== END 2018-09-20 11:42 | disposition home or self-care (01) | DRG 773 ==
PROVIDERS: Admitting Provider Internal Medicine; Referring Provider Internal Medicine; Visit Provider Internal Medicine
DX: F11.23 Opioid dependence with withdrawal (principal); F41.8 Other specified anxiety disorders; F13.10 Sedative, hypnotic or anxiolytic abuse, uncomplicated; F17.210 Nicotine dependence, cigarettes, uncomplicated
CPT/HCPCS: 36415; 80053; 80307; 80320; 81001; 82150; 83690; 84703; 85025; 85610; 99406; J7120; A4216; G0480

== ENCOUNTER → 2024-11-12 | Outpatient (CLI) | payer BC, SELFPAY ==
[2024-11-12 14:03] LABS: EXAGEN MAILED SPECIMEN
[2024-11-12 15:35] LABS: Absolute Lymphocyte Count 2.31 X10^3/uL (0.83-4.51); Absolute Neutrophil Count 4.3 X10^3/uL (2.0-7.7); Basophil# 0.04 X10^3/uL; Basophil% 0.5 % (0-1); Eosinophil# 0.27 X10^3/uL; Eosinophils% 3.4 % (0-5); Hemoglobin 11.7 g/dL (12.0-15.0); Lymphocyte # 2.31 X10^3/ul (0.83-4.51); Lymphocyte % 29.4 % (19-41); Mean Corp Hgb Conc 32.5 g/dL (32-36); Mean Corpuscular Volume 89.1 fL (81-99); Mean Platelet Vol. 11.6 fl (6.2-12.0); Monocyte# 0.93 X10^3/uL; Monocyte% 11.8 % (0-10); NRBC Flagged by Analyzer 0 % (0-5); Neutrophil # 4.28 X10^3/uL (2.7-7.7); Neutrophil % 54.4 % (47-70); Platelet Count 250 K/mm3 (150-450); RBC Distribution Width CV 12.6 % (11.6-14.6); RBC Distribution Width SD 41.1 fl (35.1-43.9); Red Blood Count 4.04 M/mm3 (4.2-5.4); White Blood Count 7.9 K/mm3 (4.4-11.0)
[2024-11-12 15:44] LABS: Color, Urine Yellow (Yellow); Glucose, Dipstick Normal (Normal); Ketone-Dipstick Negative (Negative); Leukocyte Esterase-Dipstick Negative /ul (Negative); Nitrite-Dipstick Negative (Negative); Occult Blood-Urine Negative /ul (Negative); Protein-Dipstick 15 mg/dl (Negative); Urine Bilirubin Dipstick Negative (Negative); Urine Clarity Clear (Clear); Urine Urobilinogen Normal (Normal)
[2024-11-12 15:52] LABS: Protein, Urine (Random) 8.9 mg/dL (0.0-12.0); Protein:Creat Ratio 129 mg/g CRE (0-200)
[2024-11-12 16:00] LABS: Erythrocyte Sedimentation Rate 6 mm/hr (0-30)
[2024-11-12 16:10] LABS: Hepatitis B Surface Antibody REAC
[2024-11-12 16:28] LABS: ALB/GLOB Ratio 1.3 RATIO (0.9-2.4); AST(SGOT) 32 U/L (<=31); Alanine Aminotransfer ALT/SGPT 15 U/L (<=34); Albumin, Serum 3.8 g/dL (3.5-5.0); Alkaline Phosphatase 104 U/L (35-104); Anion Gap 11 (5-15); BUN 10 mg/dL (4-19); BUN/Creat Ratio 13.1 RATIO (10-20); Calcium,Total 8.7 mg/dL (7.6-11.0); Carbon Dioxide 24.7 mmol/L (21.0-32.0); Chloride 103 mmol/L (98-108); Creatinine, Serum 0.75 mg/dL (0.70-1.20); EST Glomerular Filtration Rate 97 (>60); Glucose 80 mg/dL (70-99); Hepatitis B Surface Antigen Nonreactive (Nonreactive); Hepatitis C Antibody Nonreactive (Nonreactive); Potassium 3.5 mmol/L (3.3-5.1); Protein, Total 6.8 g/dL (5.9-8.4); Sodium Level 139 mmol/L (133-145); Total Bilirubin 0.41 mg/dL (0.00-1.30)
== END | disposition home or self-care (01) ==
LOC: MTLAB 12:51
PROVIDERS: PCP Family Medicine; Referring Provider Internal Medicine Rheumatology; Visit Provider Internal Medicine Rheumatology
DX: M06.4 Inflammatory polyarthropathy (principal); M79.7 Fibromyalgia; R76.8 Other specified abnormal immunological findings in serum
CPT/HCPCS: 36415; 80053; 81002; 82570; 84156; 85025; 85652; 86140; 86706; 86803; 87340